=== PATIENT | female | born 1945 | race Caucasian/White ===

== ENCOUNTER 2016-12-24 04:07 | Inpatient (IN) ==
[2016-12-24] MEDS ORDERED: *HR* Morphine 2 MG/ML SYRINGE IVP ONE ×2 (04:15→06:13)
[2016-12-24] MEDS ORDERED: 0.9 % Sodium Chloride 1,000 ML IVC ONE ×3 (04:15→05:57)
[2016-12-24] MEDS ORDERED: Ondansetron 4 MG/2 ML VIAL IVP ONE ×2 (04:15→04:32)
[2016-12-24 04:29] LABS: Basophils # 0.1 K/mcL (0.0-0.2); Basophils % 0.6 %; Eosinophils # 0.1 K/mcL (0.0-0.6); Eosinophils % 0.8 %; Hematocrit 39.8 % (35.3-44.9); Hemoglobin 13.7 g/dL (11.5-15.4); Immature Granulocytes % 0.6 % (0-4); Lymphocytes % 14.2 %; Mean Corpuscular HGB Conc 34.4 g/dL (31.6-35.5); Mean Corpuscular Hemoglobin 32.8 pg (28.0-33.3); Mean Corpuscular Volume 95.2 fL (83.0-100.0); Monocytes # 0.7 K/mcL (0.0-1.3); Monocytes % 4.7 %; Neutrophils # 11.2 K/mcL (1.6-8.9); Platelet Count 363 K/mcL (140-400); Red Blood Count 4.18 M/mcL (3.82-4.97); Red Cell Distribution Width 13.4 % (11.5-14.5); Segmented Neutrophils % 79.1 %
--- NOTE | 2016-12-24 04:30 | Emergency Department Note ---
Disposition Clinical Impression: Hypokalemia, ST segment changes on electrocardiogram, Lactic acidosis Abdominal pain Qualifiers: Abdominal location: epigastric Qualified Code(s): R10.13 - Epigastric pain UTI (urinary tract infection) Qualifiers: Urinary tract infection type: acute cystitis Hematuria presence: without hematuria Qualified Code(s): N30.00 - Acute cystitis without hematuria Disposition: Still a Patient Condition: Fair Abdominal Pain HPI - General Chief Complaint: ED Abdominal Pain Stated Complaint: upper abdominal pain Time Seen by Provider: 12/24/16 04:09 Source: patient, EMS Mode of arrival: EMS Limitations: no limitations Nursing Notes Reviewed: Yes Vital Signs Reviewed: Yes - History of Present Illness Pt Subjective Complaint: abdominal pain Onset (ago): hour(s) ("Around 11pm") Consistency: constant Location: epigastric Pain Severity: moderate Quality: sharp Radiation: L flank Migration to: L flank Improves with: nothing Worsens with: nothing Associated symptoms: Reports: nausea, vomiting (once). Denies: diarrhea, fever , chills, constipation, dysuria, hematemesis, hematochezia, melena, hematuria, anorexia, syncope Treatments prior to arrival: none - Related Data Allergies Allergy/AdvReac Type Severity Reaction Status Date / Time No Known Allergies Allergy Verified 02/01/15 07:43 All systems ED: reviewed and negative except as stated. Review of Systems: As Per HPI Constitutional: Denies: fever, chills, weakness Eyes: Denies: vision change Cardiovascular: Denies: chest pain, palpitations, dyspnea on exertion, orthopnea , edema, syncope Respiratory: Denies: cough, dyspnea, wheezes Gastrointestinal: Reports: as per HPI, abdominal pain, nausea. 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 Absent: scleral icterus, conjunctival injection, periorbital swelling - ENT ENT exam: mucous membranes dry - Neck Neck exam: Present: normal inspection, full ROM, trachea midline. Absent: meningismus - Chest Chest inspection: Present: normal inspection - Respiratory Respiratory exam: Present: normal lung sounds bilaterally. Absent: respiratory distress - Cardiovascular Cardiovascular exam: Present: regular rate, normal rhythm, normal heart sounds - Abdominal Exam Abdominal exam: Present: soft, tenderness, guarding, normal bowel sounds. Absent: distention, rebound, rigidity, organomegaly, mass, pulsatile mass Abdominal tenderness: Present: epigastrium - Extremities Exam Extremities exam: Present: normal inspection, full ROM. Absent: pedal edema - Back Exam Back exam: Present: normal inspection - Neurological Exam Neurological exam: Present: alert, oriented X3, CN II-XII intact - Psychiatric Psychiatric exam: Present: normal affect, normal mood - Skin Skin exam: Present: warm, dry, intact, normal color Course Course Narrative: Patient presents by squad for evaluation of epigastric abdominal pain. The pain began around 11 PM while she was watching TV. Nothing makes it better or worse. The pain continued to increase in intensity so she called the squad for transport. She has had a few episodes of nausea and one episode of nonbloody, nonbilious emesis. She has had no diarrhea, constipation, melena or hematochezia. She has had no fever or chills and no recent illnesses. She denies shortness of breath, dyspnea, dyspnea on exertion, diaphoresis, dizziness , vertigo, syncope, headache, vision changes, leg pain or swelling. She appears uncomfortable but nontoxic. Vitals are normal. EKG, Labs, CXR, fluids and meds ordered. EKG shows ST depression in anterior and septal leads, flat and inverted T- waves. Changed compared with EKG from 2007. EKG reviewed by Dr. Tai. He has seen the patient and agrees with the assessment and plan. He recommends obtaining a repeat EKG in 10 min. Repeat EKG looks the same as the first. No ST elevation. - Reevaluation(s) Reevaluation #1: Patient is feeling better after pain and nausea meds. Time: 04:46 Reevaluation #2: Per lab the Lipase had to be diluted and should be resulted in about 5 more min Time: 05:10 - Consultations Consultation #1: The case was discussed with the hospitalist, Dr. Arreola. He requests that the patient receive IV fluids at 250 mL per hour, IV potassium, and a dose of Flagyl. Rocephin was also agreed-upon as treatment of the patient's UTI. Patient has been accepted. Time: 05:55 Abdominal Pain - Medical Records Medical records reviewed: Yes I reviewed the patient's medical records. - Lab Data Lab results reviewed: Yes I reviewed the patient's lab results. Lab results narrative: Laboratory Last Values WBC 14.1 K/mcL (4.3-11.1) H 12/24/16 04:22 RBC 4.18 M/mcL (3.82-4.97) 12/24/16 04:22 Hgb 13.7 g/dL (11.5-15.4) 12/24/16 04:22 Hct 39.8 % (35.3-44.9) 12/24/16 04:22 MCV 95.2 fL (83.0-100.0) 12/24/16 04:22 MCH 32.8 pg (28.0-33.3) 12/24/16 04:22 MCHC 34.4 g/dL (31.6-35.5) 12/24/16 04:22 RDW 13.4 % (11.5-14.5) 12/24/16 04:22 Plt Count 363 K/mcL (140-400) 12/24/16 04:22 MPV 9.0 fL (9.4-12.4) L 12/24/16 04:22 Immature Gran % 0.6 % (0-4) 12/24/16 04:22 Seg Neutrophils % 79.1 % 12/24/16 04:22 Lymphocytes % 14.2 % 12/24/16 04:22 Monocytes % 4.7 % 12/24/16 04:22 Eosinophils % 0.8 % 12/24/16 04:22 Basophils % 0.6 % 12/24/16 04:22 Neutrophils # 11.2 K/mcL (1.6-8.9) H 12/24/16 04:22 Lymphocytes # 2.0 K/mcL (0.6-4.6) 12/24/16 04:22 Monocytes # 0.7 K/mcL (0.0-1.3) 12/24/16 04:22 Eosinophils # 0.1 K/mcL (0.0-0.6) 12/24/16 04:22 Basophils # 0.1 K/mcL (0.0-0.2) 12/24/16 04:22 PT 9.8 Seconds (9.4-12.1) 12/24/16 04:22 INR 0.9 12/24/16 04:22 APTT 26.0 Seconds (26.0-36.0) 12/24/16 04:22 Sodium 137 mEq/L (136-145) 12/24/16 04:22 Potassium 3.4 mEq/L (3.5-4.5) L 12/24/16 04:22 Chloride 104 mEq/L (98-109) 12/24/16 04:22 Carbon Dioxide 20 mEq/L (19-29) 12/24/16 04:22 BUN 8 mg/dL (7-20) 12/24/16 04:22 Creatinine 0.75 mg/dL (0.57-1.11) 12/24/16 04:22 Est GFR ( Amer) > 60 (> 60) 12/24/16 04:22 Est GFR (Non-Af Amer) > 60 (> 60) 12/24/16 04:22 BUN/Creatinine Ratio 11 (6-26) 12/24/16 04:22 Glucose 151 mg/dL (70-99) H 12/24/16 04:22 Calculated Osmolality 285 (280-300) 12/24/16 04:22 Calcium 9.4 mg/dL (8.6-10.8) 12/24/16 04:22 Total Bilirubin 0.6 mg/dL (0.2-1.2) 12/24/16 04:22 AST 39 Units/L (5-34) H 12/24/16 04:22 ALT 26 Units/L (0-55) 12/24/16 04:22 Alkaline Phosphatase 87 Units/L (38-126) 12/24/16 04:22 Troponin I 0.01 ng/mL (0-0.03) 12/24/16 04:22 Serum Total Protein 7.2 g/dL (6.0-8.3) 12/24/16 04:22 Albumin 4.0 g/dL (3.5-5.0) 12/24/16 04:22 Globulin 3.2 g/dL (2.4-3.5) 12/24/16 04:22 Albumin/Globulin Ratio 1.3 (1.1-2.2) 12/24/16 04:22 Ethyl Alcohol 50 mg/dL (0-10) H 12/24/16 04:22 - Radiology Data Radiology results reviewed: Yes I reviewed the patient's radiology results. - EKG Data EKG attestation: Yes I reviewed and interpreted this EKG. EKG shows normal: sinus rhythm Rate: normal Rhythm: NSR When compared to previous EKG there are: changes noted Interpretation: nonspecific ST-T wave changes
[2016-12-24] MEDS ORDERED: Ondansetron 4 MG/2 ML VIAL ONE (04:33)
[2016-12-24 04:42] LABS: INR 0.9; Prothrombin Time 9.8 Seconds (9.4-12.1)
[2016-12-24 04:45] LABS: Alanine Aminotransferase 26 Units/L (0-55); Albumin/Globulin Ratio 1.3 (1.1-2.2); Alkaline Phosphatase 87 Units/L (38-126); Aspartate Amino Transferase 39 Units/L (5-34); BUN/Creatinine Ratio 11 (6-26); Bilirubin,Total 0.6 mg/dL (0.2-1.2); Blood Urea Nitrogen 8 mg/dL (7-20); Calcium 9.4 mg/dL (8.6-10.8); Carbon Dioxide 20 mEq/L (19-29); Chloride 104 mEq/L (98-109); Ethanol 50 mg/dL (0-10); Globulin 3.2 g/dL (2.4-3.5); Glucose 151 mg/dL (70-99); Osmolality,Calculated 285 (280-300); Potassium 3.4 mEq/L (3.5-4.5); Sodium 137 mEq/L (136-145); Total Protein 7.2 g/dL (6.0-8.3); eGFR For African Americans > 60 (> 60); eGFR For Non-African Americans > 60 (> 60)
[2016-12-24 05:32] LABS: Lipase 3539 Units/L (8-78)
[2016-12-24 05:34] LABS: Bilirubin,Urine Negative (Negative); Blood,Urine Negative (Negative); Clarity,Urine Cloudy (Clear); Color,Urine Yellow (Yellow); Glucose,Urine (UA) Normal (Normal); Ketones,Urine Negative (Negative); Leukocyte Esterase,Urine Small (Negative); Nitrite,Urine Positive (Negative); PH,Urine 6.5 pH Units (5.0-8.0); Protein,Urine Trace mg/dL (Neg-Trace); Specific Gravity,Urine > 1.030 (1.010-1.025); Urobilinogen,Urine Normal (Normal)
[2016-12-24 05:37] LABS: Bacteria,Urine Many per hpf (None-Few); Hyaline Casts,Urine None Seen per lpf (None-Few); RBC,Urine 0-3 per hpf (0-3); Squamous Epithelial Cell,Urine Moderate per lpf (None-Few); WBC,Urine 15-30 per hpf (0-3)
[2016-12-24] MEDS ORDERED: MetroNIDAZOLE 500 MG/100 ML 500 MG/100 ML BAG IVPB ONE (05:55)
[2016-12-24] MEDS ORDERED: Potassium Chloride 40 MEQ, Lidocaine 1% 2 ML in D5% in Water 500 ML IVPB ONE (05:55)
[2016-12-24] MEDS ORDERED: Ondansetron 4 MG/2 ML VIAL IVP STA (06:12)
--- NOTE | 2016-12-24 08:12 | Internal Med History&Physical ---
Date of Encounter: 12/24/16 Time of Encounter: 07:40 Assessment and Plan (1) Abdominal pain Current visit: Yes Status: Acute Most likely secondary to pancreatitis and acute gastritis, cannot rule out upper GI bleeding or severe gastritis with her history of alcohol use , She drinks 3 of whiskey daily in addition to drinking Pepsi and 3 cup of tea daily (2) Hypokalemia Current visit: Yes Status: Acute Replace per protocol (3) Lactic acidosis Current visit: Yes Status: Acute Secondary to volume depletion continue IV fluid (4) ST segment changes on electrocardiogram Current visit: Yes Status: Acute Patient had a stress test done on December 2015 which was negative. Patient currently denies any chest pain. We will trend troponin, nitroglycerin as needed (5) UTI (urinary tract infection) Current visit: Yes Status: Acute Add ciprofloxacin close monitoring of urine culture Internal Medicine - H&P: HPI Chief complaint: Abdominal pain. Admitted From: Home Plans for Post Hospital Care: Home History of present illness: Ms. Mckinney is a 71 year old female with past medical history of alcohol use. Patient came to the hospital today with complaint of severe epigastric pain sharp-like sensation 8 out of 10 in severity and worse with coughing or taking deep breaths or bending . Patient is complaining of gastric esophageal reflux disease-like symptoms. Patient is complaining of nausea, she had 1 episode of nonbilious nonbloody vomitus yesterday. Patient denies any chest pain or shortness of breath. Patient denies any fever or chills. She had loose bowel movement yesterday. Past Med Surg Social Fam HX - Past Medical History Medical history: osteoporosis, other Psychiatric history: no psych history - Past Surgical History Surgical History: appendectomy, other (Tubal ligation, surgery on her left kidney, colonoscopy) - Social History Smoking Status: Current every day smoker (Halfback daily for 30 years) Smokeless Tobacco Status: No Alcohol use: recent Drug use: none - Family History Mother Hx Family Cancer: Yes (breast) Father Hx Family Cardiac Disorders: Yes (CAD, Dyslipidemia) Internal Medicine - H&P: Meds Allopurinol [Zyloprim] 300 mg PO DAILY 12/24/16 [History] Gemfibrozil [Lopid] 600 mg PO DAILY 12/24/16 [History] Levothyroxine [Synthroid] 75 mcg PO DAILY 12/24/16 [History] Lisinopril [Zestril] 10 mg PO DAILY 12/24/16 [History] Pravastatin Sodium 10 mg PO DAILY 12/24/16 [History] 3 Allergy/AdvReac Type Severity Reaction Status Date / Time No Known Allergies Allergy Verified 02/01/15 07:43 All Systems PM: A 10-system review of systems was performed and is negative for pertinent findings except as documented above in the HPI. - Constitutional Vitals: Temp Pulse Resp BP Pulse Ox 97.3 F L 76 19 149/69 98 12/24/16 04:08 12/24/16 07:44 12/24/16 07:44 12/24/16 07:44 12/24/16 07:44 General appearance: Present: cooperative, A&O X 3, pleasant, severe distress - Head Head exam: Present: atraumatic, normocephalic - Neck Neck exam general surgery: Present: supple, trachea midline. Absent: lymphadenopathy - Respiratory Respiratory exam: Present: decreased breath sounds. Absent: accessory muscle use, rales, rhonchi, wheezes - Cardiovascular Cardiovascular exam: Present: RRR, +S1, +S2. Absent: diastolic murmur, gallop, rubs, systolic murmur - GI/Abdominal GI/Abdominal exam: Present: normal bowel sounds, soft, tenderness (Diffuse abdominal tenderness more in the epigastric area bilateral lower quadrant area and suprapubic area), no peritoneal signs - Extremities Exam Extremities exam: Present: warm, radial pulses palpable and symmetrical. Absent : calf tenderness, cyanotic, pedal edema - Neurological Exam Neurological exam: Present: CN II-XII intact, oriented X3, no focal deficits. Absent: pronater drift, facial droop, speech deficit - Skin Skin exam: Present: dry, intact Internal Med - H&P Results - Labs CBC & Chem 7: 12/24/16 04:22 12/24/16 04:22
[2016-12-24] MEDS ORDERED: Ondansetron ODT 4 MG TAB.RAPDIS SL PRN (08:38)
[2016-12-24] MEDS ORDERED: *HR* LORazepam 2 MG/ML VIAL IVP PRN (08:51)
[2016-12-24 09:25] LABS: Magnesium 1.8 mg/dL (1.6-2.6); Phosphorous 3.1 mg/dL (2.3-4.7)
[2016-12-24] MEDS: Lactobacillus 1 EACH CAP.SPRINK PO SCH (09:42)
[2016-12-24] MEDS: Folic Acid 1 MG TABLET PO SCH (09:42)
[2016-12-24] MEDS: *HR* Morphine 2 MG/ML SYRINGE IVP PRN ×4 (09:44→22:34)
[2016-12-24] MEDS: Thiamine (B-1) 100 MG TABLET PO SCH (09:44)
[2016-12-24] MEDS: Pantoprazole 40 MG VIAL IVP SCH ×2 (09:44→20:25)
[2016-12-24] MEDS: MetroNIDAZOLE 500 MG/100 ML 500 MG/100 ML BAG IVPB SCH ×2 (10:03→17:30)
[2016-12-24] MEDS: Sucralfate 1 GM TABLET PO SCH ×3 (11:07→23:15)
--- NOTE | 2016-12-24 17:18 | Electrocardiograph Report ---
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
--- NOTE | 2016-12-24 17:19 | Electrocardiograph Report ---
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
[2016-12-25] MEDS: MetroNIDAZOLE 500 MG/100 ML 500 MG/100 ML BAG IVPB SCH ×3 (01:51→21:21)
[2016-12-25] MEDS: *HR* Morphine 2 MG/ML SYRINGE IVP PRN ×5 (02:58→21:17)
[2016-12-25] MEDS ORDERED: *HR* LORazepam 2 MG/ML VIAL IVP PRN ×3 (04:03→04:05)
[2016-12-25 04:27] LABS: Basophils % 0.3 %; Eosinophils # 0.2 K/mcL (0.0-0.6); Eosinophils % 1.6 %; Hematocrit 33.3 % (35.3-44.9); Immature Granulocytes % 0.5 % (0-4); Lymphocytes # 1.4 K/mcL (0.6-4.6); Lymphocytes % 14.5 %; Mean Corpuscular HGB Conc 33.6 g/dL (31.6-35.5); Mean Corpuscular Hemoglobin 33.1 pg (28.0-33.3); Mean Corpuscular Volume 98.5 fL (83.0-100.0); Mean Platelet Volume 9.3 fL (9.4-12.4); Monocytes # 0.4 K/mcL (0.0-1.3); Monocytes % 3.8 %; Neutrophils # 7.6 K/mcL (1.6-8.9); Platelet Count 258 K/mcL (140-400); Red Blood Count 3.38 M/mcL (3.82-4.97); Red Cell Distribution Width 13.8 % (11.5-14.5); Segmented Neutrophils % 79.3 %
[2016-12-25 04:53] LABS: Hemoglobin 11.2 g/dL (11.5-15.4)
[2016-12-25] MEDS: Lactobacillus 1 EACH CAP.SPRINK PO SCH (09:12)
[2016-12-25] MEDS: Folic Acid 1 MG TABLET PO SCH (09:31)
[2016-12-25] MEDS: Thiamine (B-1) 100 MG TABLET PO SCH (09:31)
[2016-12-25] MEDS: Pantoprazole 40 MG VIAL IVP SCH ×2 (09:32→21:17)
[2016-12-25 10:36] LABS: Amylase 186 Units/L (25-125); BUN/Creatinine Ratio 9 (6-26); Blood Urea Nitrogen 6 mg/dL (7-20); Carbon Dioxide 20 mEq/L (19-29); Chloride 112 mEq/L (98-109); Glucose 86 mg/dL (70-99); Lipase 451 Units/L (8-78); Magnesium 1.4 mg/dL (1.6-2.6); Osmolality,Calculated 285 (280-300); Potassium 3.6 mEq/L (3.5-4.5); Sodium 139 mEq/L (136-145); eGFR For African Americans > 60 (> 60); eGFR For Non-African Americans > 60 (> 60)
[2016-12-25 10:37] LABS: Phosphorous 1.3 mg/dL (2.3-4.7)
[2016-12-25] MEDS ORDERED: Sodium Phosphate 30 MMOL in D5% in Water 100 ML IVPB ONE (10:48)
--- NOTE | 2016-12-25 11:39 | Internal Med Progress Note ---
Date of Encounter: 12/25/16 Time of Encounter: 10:50 - Assessment and plan (1) Abdominal pain Current Visit: Yes Status: Acute Assessment and plan: Continue IV fluid, pain medication as needed. Lipase is trending down and was started clear liquid diet Qualifiers: Abdominal location: epigastric Qualified Code(s): R10.13 - Epigastric pain (2) Hypokalemia Current Visit: Yes Status: Acute Assessment and plan: Replaced (3) Lactic acidosis Current Visit: Yes Status: Acute (4) ST segment changes on electrocardiogram Current Visit: Yes Status: Acute Assessment and plan: Recheck EKG consult cardiology (5) UTI (urinary tract infection) Current Visit: Yes Status: Acute Assessment and plan: Continue current antibiotic awaiting final culture (6) Hypophosphatemia Current Visit: Yes Status: Acute Assessment and plan: Replace and check phosphorus next morning - Time Spent With Patient 25 - 35 minutes - Subjective Interval history: Patient continue to have mild diffuse abdominal pain better than yesterday. Patient denies any nausea or vomiting. Patient denies any fever or chills. Patient is complaining of bilateral flank pain. Patient stated IV pain medication morphine last only for 3 hour - Constitutional Vitals: Temp Pulse Resp BP Pulse Ox 98.5 F 93 13 137/72 98 12/25/16 06:48 12/25/16 06:48 12/25/16 06:48 12/25/16 06:48 12/25/16 06:48 General appearance: Present: cooperative, A&O X 3, pleasant, severe distress - Head Head exam: Present: atraumatic, normocephalic - Neck Neck exam general surgery: Present: supple, trachea midline. Absent: lymphadenopathy - Respiratory Respiratory exam: Present: CTAB. Absent: accessory muscle use, rales, rhonchi, wheezes - Cardiovascular Cardiovascular exam: Present: RRR, +S1, +S2. Absent: diastolic murmur, gallop, rubs, systolic murmur - GI/Abdominal GI/Abdominal exam: Present: normal bowel sounds, tenderness (Mild diffuse abdominal tenderness more in bilateral upper quadrant). Absent: splenomegaly - Extremities Exam Extremities exam: Present: warm, radial pulses palpable and symmetrical. Absent : calf tenderness, cyanotic, pedal edema - Neurological Exam Neurological exam: Present: CN II-XII intact, oriented X3, no focal deficits. Absent: pronater drift, facial droop, speech deficit - Skin Skin exam: Present: dry, intact Internal Medicine: Result - Labs CBC & Chem 7: 12/25/16 03:37 12/25/16 10:10 Labs: Short CBC 12/25/16 Range/Units 03:37 WBC 9.6 (4.3-11.1) K/mcL Hgb 11.2 L D (11.5-15.4) g/dL Hct 33.3 L (35.3-44.9) % Plt Count 258 (140-400) K/mcL Neutrophils # 7.6 (1.6-8.9) K/mcL BMP 12/25/16 10:10 Sodium 139 Potassium 3.6 Chloride 112 H Carbon Dioxide 20 BUN 6 L Creatinine 0.68 Glucose 86 Calcium 8.0 L Cardiac Enzymes 12/24/16 Range/Units 14:50 Troponin I 0.00 (0-0.03) ng/mL - ABG Interpretation ABG results: PT/INR, D-dimer PT 9.8 Seconds (9.4-12.1) 12/24/16 04:22 - VTE Documentation of Mechanical Device: Graduated compression elastic hosiery Consult Discharge Plan - Plan Referrals: Cristiana Burr, [facility] [Primary Care Provider] -
--- NOTE | 2016-12-25 13:19 | Cardiology Consult Note ---
Date of Encounter: 12/25/16 Time of Encounter: 12:45 Assessment and Plan (1) Abdominal pain Current Visit: Yes Status: Acute Per cardiology: -ADmitted with abdominal pain, diagnosed with pancreatitis. -Elevated amylase and lipase noted. -Management per primary service. Qualifiers: Abdominal location: epigastric Qualified Code(s): R10.13 - Epigastric pain (2) Electrolyte imbalance Current Visit: Yes Status: Acute Per cardiology: -Mag 1.4, replaced per primary service. -Phosphorous 1.3, replaced per primary service. -Management per primary service. (3) ST segment changes on electrocardiogram Current Visit: Yes Status: Acute Per cardiology: -ST depression noted in leads V4, V5, and V6. T wave inversions noted in leads I , V3, V4, V5. -Electrolyte imbalances noted. -Troponins negative x3. -Denies chest pain, shortness of breath, or increased fatigue. -Denies exertional symptoms. -Stress 12/2015 with perfusion imaging negative for ischemia or infarct. -Will check echocardiogram. -Will repeat ECG in am after electrolytes have been repleted. (4) Tobacco abuse Current Visit: Yes Status: Chronic Per cardiology: -Reports smoking 0.5ppd for greater than 40 years. -Smoking cessation education provided to patient. Discussion w patient/family: The assessment and plan as outlined above was discussed with the patient who expressed understanding and agreement. All questions were answered. Thank you for involving us in the care of your patient. Please call with any questions. Discussed and reviewed with . History of Present Illness Consult date: 12/25/16 Requesting physician: Juve Fonseca Consult reason: abnormal ECG Chief complaint: abdominal pain History of present illness: Ms. Mckinney is a 71 year old female with a relevant past medical history of hyperlipidemia, tobacco abuse, and ETOH abuse. Patient reports family history of CAD with father at age 60 requiring CABG. Patient presented to [facility] with complaints of abdominal pain. Cardiology has been asked to see and evaluate patient for abnormal ECG. Patient denies chest pain, shortness of breath, or increased fatigue. Patient denies exertional symptoms. Patient reports she is able to climb two flights of stairs carrying laundry without symptoms. Past Med Surg Social Fam HX - Past Medical History Attestation: Yes The following information was validated with the patient. Source: patient, old records reviewed Medical history: osteoporosis, other Psychiatric history: no psych history - Past Surgical History Surgical History: appendectomy, other - Social History Smoking Status: Current every day smoker Smokeless Tobacco Status: No Alcohol use: recent Drug use: none - Family History Mother Hx Family Cancer: Yes (breast) Father Hx Family Cardiac Disorders: Yes (CAD, Dyslipidemia) Medications and Allergies Allopurinol [Zyloprim] 300 mg PO DAILY 12/24/16 [History] Gemfibrozil [Lopid] 600 mg PO DAILY 12/24/16 [History] Levothyroxine [Synthroid] 75 mcg PO DAILY 12/24/16 [History] Lisinopril [Zestril] 10 mg PO DAILY 12/24/16 [History] Pravastatin Sodium 10 mg PO DAILY 12/24/16 [History] 3 Allergy/AdvReac Type Severity Reaction Status Date / Time No Known Allergies Allergy Verified 02/01/15 07:43 All Systems Review: A 10-system review of systems was performed and is negative for pertinent findings except as documented above in the HPI. - Cardiovascular Cardiovascular: as per HPI - Gastrointestinal Gastrointestinal: abdominal pain Physical Examination Vital Signs, Last 4 Hours Temp Pulse Resp BP Pulse Ox 12/25/16 11:46 98.3 F 86 16 153/74 96 General: Conversant, No Apparent Distress HEENT: Atraumatic, Normocephaly, Mucus Membranes Moist Neck: No JVD, Normal carotid pulses Cardiac: Reg Rate and Rhythm, Normal S1 and S2, No Murmur Lungs: Normal Breath Sounds, No Wheeze, Rales, Rhonchi Neuro: Alert and responsive, No focal deficits noted Abdomen: Soft, Other (Abdomen tender to palpation. ) Skin: No rashes noted on visualized skin Musculoskeletal: No Chest Wall Tenderness Extremities: No Clubbing, No Cyanosis, No Edema, Normal Pulses Results 12/25/16 03:37 12/25/16 10:10 Lab Results Active Medications Folic Acid (Folic Acid) 1 mg PO DAILY [facility] Stop: 06/25/17 09:01 Last Admin: 12/25/16 09:31 Dose: 1 mg Ciprofloxacin Lactate (Cipro Premix 400 Mg/200 Ml) 400 mg in 200 mls @ 200 mls/ hr IVPB Q12H [facility] Stop: 06/25/17 10:01 Last Admin: 12/25/16 09:19 Dose: 200 mls/hr Metronidazole (Flagyl Premix 500 Mg/100 Ml) 500 mg in 100 mls @ 100 mls/hr IVPB Q8H [facility] Stop: 06/25/17 10:01 Last Admin: 12/25/16 09:21 Dose: 100 mls/hr Potassium Chloride 10 meq/ (Sodium Chloride) 1,005 mls @ 200 mls/hr IVC .Q5H2M [facility] Stop: 06/25/17 20:01 Last Admin: 12/25/16 11:33 Dose: 200 mls/hr Sodium Phosphate 30 mmol/ (Dextrose) 110 mls @ 16 mls/hr IVPB ONCE ONE Stop: 12/25/16 17:40 Lactobacillus Acidophilus/Rhamnosus (Culturelle) 2 each PO DAILY [facility] Stop: 06/25/17 09:01 Last Admin: 12/25/16 09:12 Dose: Not Given Lorazepam (Ativan) 2 mg IVP Q2H PRN PRN Reason: CIWA more than 10 Stop: 06/26/17 04:04 Lorazepam (Ativan) 4 mg IVP Q2H PRN PRN Reason: CIWA more than 20 Stop: 06/26/17 04:04 Lorazepam (Ativan) 1 mg IVP Q6HR PRN PRN Reason: Anxiety Stop: 06/25/17 08:52 Morphine Sulfate (Morphine Sulfate) 2 mg IVP Q4HR PRN PRN Reason: Moderate Pain Stop: 06/25/17 08:39 Last Admin: 12/25/16 12:17 Dose: 2 mg Ondansetron HCl (Zofran Odt) 4 mg SL Q8HR PRN PRN Reason: Nausea And Vomiting Stop: 06/25/17 08:39 Pantoprazole Sodium (Protonix) 40 mg IVP BID [facility] Stop: 06/25/17 09:01 Last Admin: 12/25/16 09:32 Dose: 40 mg Sucralfate (Carafate) 1 gm PO QIDAC [facility] Stop: 06/26/17 08:31 Last Admin: 12/25/16 09:32 Dose: 1 gm Thiamine HCl (Vitamin B-1) 100 mg PO DAILY [facility] Stop: 06/25/17 09:01 Last Admin: 12/25/16 09:31 Dose: 100 mg Laboratory Tests 12/24/16 12/24/1612/24/17 04:22 04:22 08:58 WBC 14.1 H Hgb Potassium Creatinine Phosphorus Magnesium Troponin I 0.01 0.00 12/24/16 12/25/16 12/25/16 14:50 03:37 10:10 WBC 9.6 Hgb 11.2 L D Potassium 3.6 Creatinine 0.68 Phosphorus 1.3 L D Magnesium 1.4 L Troponin I 0.00 - Imaging and Cardiology Chest Xray: report reviewed Stress Test: report reviewed Echo: pending - EKG Interpretation EKG results cardiology: personally reviewed (ECG with SR, HR 80. ST depression noted in leads V4, V5, and V6. T wave inversions noted in leads I, V3, V4, V5.) , other (Telemetry reviewed with average HR previous 12 hours noted to be 89, sinus rhythm. PACs noted. One run of atrial tachycardia noted.) Consult Discharge Plan - Plan Referrals: Cristiana Burr, [employer] [Primary Care Provider] -
[2016-12-25] MEDS: Sucralfate 1 GM TABLET PO SCH (17:57)
[2016-12-26] MEDS: *HR* Morphine 2 MG/ML SYRINGE IVP PRN ×3 (01:48→12:45)
[2016-12-26] MEDS: MetroNIDAZOLE 500 MG/100 ML 500 MG/100 ML BAG IVPB SCH ×3 (01:49→17:52)
[2016-12-26 04:51] LABS: INR 1.1; Prothrombin Time 12.2 Seconds (9.4-12.1)
[2016-12-26 04:56] LABS: Basophils % 0.4 %; Eosinophils # 0.2 K/mcL (0.0-0.6); Eosinophils % 1.5 %; Hematocrit 29.5 % (35.3-44.9); Hemoglobin 10.1 g/dL (11.5-15.4); Immature Granulocytes % 0.6 % (0-4); Lymphocytes # 1.5 K/mcL (0.6-4.6); Lymphocytes % 14.5 %; Mean Corpuscular HGB Conc 34.2 g/dL (31.6-35.5); Mean Corpuscular Hemoglobin 32.9 pg (28.0-33.3); Mean Corpuscular Volume 96.1 fL (83.0-100.0); Mean Platelet Volume 9.6 fL (9.4-12.4); Monocytes # 0.5 K/mcL (0.0-1.3); Neutrophils # 7.9 K/mcL (1.6-8.9); Platelet Count 216 K/mcL (140-400); Red Blood Count 3.07 M/mcL (3.82-4.97); Red Cell Distribution Width 13.8 % (11.5-14.5)
[2016-12-26 05:24] LABS: BUN/Creatinine Ratio 6 (6-26); Calcium 7.7 mg/dL (8.6-10.8); Carbon Dioxide 18 mEq/L (19-29); Chloride 112 mEq/L (98-109); Glucose 104 mg/dL (70-99); Magnesium 1.6 mg/dL (1.6-2.6); Osmolality,Calculated 283 (280-300); Phosphorous 1.7 mg/dL (2.3-4.7); Potassium 3.4 mEq/L (3.5-4.5); Sodium 138 mEq/L (136-145); eGFR For African Americans > 60 (> 60); eGFR For Non-African Americans > 60 (> 60)
[2016-12-26 05:28] LABS: Blood Urea Nitrogen 4 mg/dL (7-20)
[2016-12-26] MEDS: Lactobacillus 1 EACH CAP.SPRINK PO SCH ×2 (07:41→07:46)
[2016-12-26] MEDS: Thiamine (B-1) 100 MG TABLET PO SCH (07:41)
[2016-12-26] MEDS: Pantoprazole 40 MG VIAL IVP SCH ×2 (07:41→21:26)
[2016-12-26] MEDS: Folic Acid 1 MG TABLET PO SCH (07:41)
[2016-12-26 09:10] LABS: Chol/HDL Ratio 3.2 (0-4.9)
--- NOTE | 2016-12-26 09:56 | Electrocardiograph Report ---
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
[2016-12-26] MEDS ORDERED: Potassium Phosphate 44 MEQ in 0.9 % Sodium Chloride 250 ML IVPB ONE (12:59)
[2016-12-26] MEDS ORDERED: Magnesium Sulfate 1 GM in D5% in Water 100 ML IVPB ONE (13:00)
--- NOTE | 2016-12-26 13:12 | Cardiology Progress Note ---
Date of Encounter: 12/26/16 Time of Encounter: 11:30 Assessment and Plan (1) Abdominal pain Current Visit: Yes Status: Acute Per cardiology: -ADmitted with abdominal pain, diagnosed with pancreatitis. -Elevated amylase and lipase noted. -Management per primary service. Qualifiers: Abdominal location: epigastric Qualified Code(s): R10.13 - Epigastric pain (2) Electrolyte imbalance Current Visit: Yes Status: Acute Per cardiology: -Mag 1.6, replaced per primary service. -Phosphorous 1.7, replaced per primary service. -Management per primary service. (3) ST segment changes on electrocardiogram Current Visit: Yes Status: Acute Per cardiology: -Had ECG changes on admission. -Electrolyte imbalances noted. -Troponins negative x3. -Denies chest pain, shortness of breath, or increased fatigue. -Denies exertional symptoms. -Stress 12/2015 with perfusion imaging negative for ischemia or infarct. -TTE with LVEF 65%, mild diastolic dysfunction, no significant valvular dysfunction, trivial pericardial effusion without evidence of tamponade, all wall segments with normal motion. -No significant findings on echocardiogram. Denies symptoms. -Cardiology will sign off and will follow in outpatient setting. Follow up set. (4) Tobacco abuse Current Visit: Yes Status: Chronic Per cardiology: -Reports smoking 0.5ppd for greater than 40 years. -Smoking cessation education provided to patient. Discussion w patient/family: The assessment and plan as outlined above was discussed with the patient who expressed understanding and agreement. All questions were answered. Thank you for involving us in the care of your patient. Please call with any questions. Discussed and reviewed with . Subjective Principal diagnosis: ECG changes Interval history: Patient states she feels better this morning. Denies shortness of breath or chest pain. Objective Vital Signs, Last 4 Hours Temp Pulse Resp BP Pulse Ox 12/26/16 12:58 98.4 F 71 18 139/77 94 General: Conversant, No Apparent Distress HEENT: Atraumatic, Normocephaly, Mucus Membranes Moist Neck: No JVD, Normal carotid pulses Cardiac: Reg Rate and Rhythm, Normal S1 and S2, No Murmur Lungs: Normal Breath Sounds, No Wheeze, Rales, Rhonchi Neuro: Alert and responsive, No focal deficits noted Abdomen: Soft, Other (abdomen tender to palpation. ) Skin: No rashes noted on visualized skin Musculoskeletal: No Chest Wall Tenderness Extremities: No Clubbing, No Cyanosis, No Edema, Normal Pulses Results 12/26/16 04:05 12/26/16 04:05 Lab Results Impressions Echocardiogram 12/25/16 13:03 Impressions: LVEF 65%. Mild left ventricular diastolic dysfunction. Normal right ventricular structure and function. No significant valvular dysfunction. No pulmonary hypertension. There is a trivial pericardial effusion present without tamponade. Left Ventricular Wall Motion: Rest Echo Findings All wall segments showed normal motion. Findings: Study Quality * Technically adequate exam. ECG Findings * Normal sinus rhythm. Left Ventricle * Normal LV chamber size, wall thickness and function. * LVEF 65%. * Mild left ventricular diastolic dysfunction. Right Ventricle * Normal right ventricular structure and function. Left Atrium * Normal left atrial size. Right Atrium * Normal right atrial size. Aortic Valve * No aortic regurgitation. * Aortic valve not well visualized. * No aortic stenosis. Mitral Valve * Normal mitral valve structure. * No mitral regurgitation. * No mitral stenosis. Tricuspid Valve * Tricuspid valve not well visualized. * No tricuspid regurgitation. * Estimated RA pressure is 3 mmHg. * Estimated RVSP is 8 mmHg. Pulmonic Valve * Pulmonic valve is not well visualized. * No pulmonic stenosis. * No pulmonic regurgitation. Pulmonary Artery * Pulmonary artery not well visualized. Aorta * Normally sized aortic root. Pericardium * There is a trivial pericardial effusion present. * There is no echocardiographic evidence of tamponade. Interatrial Septum * No evidence of PFO by color Doppler. IVC * Normal IVC dimensions and inspiratory collapse. Active Medications Folic Acid (Folic Acid) 1 mg PO DAILY BENNIE Stop: 06/25/17 09:01 Last Admin: 12/26/16 07:41 Dose: 1 mg Ciprofloxacin Lactate (Cipro Premix 400 Mg/200 Ml) 400 mg in 200 mls @ 200 mls/ hr IVPB Q12H BENNIE Stop: 06/25/17 10:01 Last Admin: 12/26/16 11:16 Dose: 200 mls/hr Metronidazole (Flagyl Premix 500 Mg/100 Ml) 500 mg in 100 mls @ 100 mls/hr IVPB Q8H BENNIE Stop: 06/25/17 10:01 Last Infusion: 12/26/16 11:23 Dose: Infused Potassium Chloride 10 meq/ (Sodium Chloride) 1,005 mls @ 200 mls/hr IVC .Q5H2M [facility] Stop: 06/25/17 20:01 Last Admin: 12/26/16 05:56 Dose: 200 mls/hr Magnesium Sulfate 1 gm/ (Dextrose) 102 mls @ 100 mls/hr IVPB ONCE ONE Stop: 12/26/16 14:01 Potassium Phosphate 44 meq/ (Sodium Chloride) 260 mls @ 40 mls/hr IVPB ONCE ONE Stop: 12/26/16 19:28 Lactobacillus Acidophilus/Rhamnosus (Culturelle) 2 each PO DAILY [facility] Stop: 06/25/17 09:01 Last Admin: 12/26/16 07:46 Dose: Not Given Lorazepam (Ativan) 2 mg IVP Q2H PRN PRN Reason: CIWA more than 10 Stop: 06/26/17 04:04 Lorazepam (Ativan) 4 mg IVP Q2H PRN PRN Reason: CIWA more than 20 Stop: 06/26/17 04:04 Lorazepam (Ativan) 1 mg IVP Q6HR PRN PRN Reason: Anxiety Stop: 06/25/17 08:52 Morphine Sulfate (Morphine Sulfate) 2 mg IVP Q4HR PRN PRN Reason: Moderate Pain Stop: 06/25/17 08:39 Last Admin: 12/26/16 12:45 Dose: 2 mg Ondansetron HCl (Zofran Odt) 4 mg SL Q8HR PRN PRN Reason: Nausea And Vomiting Stop: 06/25/17 08:39 Pantoprazole Sodium (Protonix) 40 mg IVP BID [facility] Stop: 06/25/17 09:01 Last Admin: 12/26/16 07:41 Dose: 40 mg Sucralfate (Carafate) 1 gm PO QIDAC [facility] Stop: 06/26/17 08:31 Last Admin: 12/26/16 12:45 Dose: 1 gm Thiamine HCl (Vitamin B-1) 100 mg PO DAILY [facility] Stop: 06/25/17 09:01 Last Admin: 12/26/16 07:41 Dose: 100 mg Laboratory Tests 12/26/16 12/26/16 04:05 04:05 Hgb 10.1 L Potassium 3.4 L Creatinine 0.65 Phosphorus 1.7 L - Imaging and Cardiology Chest Xray: report reviewed Echo: report reviewed - EKG Interpretation EKG results cardiology: personally reviewed (ECG with SR, HR 84. T wave inversions noted in V1, V2, V3, V4, V5.), other (Telemetry reviewed with average HR previous 12 hours noted to be 88, sinus rhythm.) - VTE Documentation of Mechanical Device: Graduated compression elastic hosiery Consult Discharge Plan - Plan Referrals: Cristiana Burr, [employer] [Primary Care Provider] -
[2016-12-26] MEDS ORDERED: Acetaminophen 325 MG TABLET PO PRN (16:46)
[2016-12-26] MEDS ORDERED: Potassium Chloride Elixir 20 MEQ/15 ML UDC PO ONE (16:48)
--- NOTE | 2016-12-26 16:51 | Internal Med Progress Note ---
Date of Encounter: 12/26/16 Time of Encounter: 14:00 - Assessment and plan (1) Abdominal pain Current Visit: Yes Status: Acute Assessment and plan: Titrated down pain medication, change it to oral Qualifiers: Abdominal location: epigastric Qualified Code(s): R10.13 - Epigastric pain (2) Hypokalemia Current Visit: Yes Status: Acute Assessment and plan: Add potassium chloride liquid (3) Lactic acidosis Current Visit: Yes Status: Acute (4) ST segment changes on electrocardiogram Current Visit: Yes Status: Acute Assessment and plan: Last stress test is negative cardiac echo normal. Per Cardiology no invasive workup needed (5) UTI (urinary tract infection) Current Visit: Yes Status: Acute Assessment and plan: Escherichia coli sensitive to Levaquin, check bladder scan Qualifiers: Urinary tract infection type: acute cystitis Hematuria presence: without hematuria Qualified Code(s): N30.00 - Acute cystitis without hematuria (6) Hypophosphatemia Current Visit: Yes Status: Acute Assessment and plan: Replace and check tomorrow morning - Time Spent With Patient 25 - 35 minutes - Subjective Interval history: Patient continued to have diffuse abdominal pain better than yesterday 5 out of 10 in severity. Patient denies any nausea or vomiting, she had low-grade fever , potassium and phosphorus is down, she is complaining of constipation - Constitutional Vitals: Temp Pulse Resp BP Pulse Ox 100.4 F H 90 19 157/79 94 12/26/16 15:22 12/26/16 15:22 12/26/16 15:22 12/26/16 15:22 12/26/16 15:22 General appearance: Present: cooperative, A&O X 3, pleasant - Head Head exam: Present: atraumatic, normocephalic - Neck Neck exam general surgery: Present: supple, trachea midline. Absent: lymphadenopathy - Respiratory Respiratory exam: Present: CTAB. Absent: accessory muscle use, rales, rhonchi, wheezes - Cardiovascular Cardiovascular exam: Present: RRR, +S1, +S2. Absent: diastolic murmur, gallop, rubs, systolic murmur - GI/Abdominal GI/Abdominal exam: Present: normal bowel sounds, soft, tenderness (Mild diffuse abdominal tenderness ), no peritoneal signs. Absent: distended - Extremities Exam Extremities exam: Present: warm, radial pulses palpable and symmetrical. Absent : calf tenderness, cyanotic, pedal edema - Neurological Exam Neurological exam: Present: CN II-XII intact, oriented X3, no focal deficits. Absent: pronater drift, facial droop, speech deficit Internal Medicine: Result - Labs CBC & Chem 7: 12/26/16 04:05 12/26/16 04:05 Labs: Short CBC 12/26/16 Range/Units 04:05 WBC 10.1 (4.3-11.1) K/mcL Hgb 10.1 L (11.5-15.4) g/dL Hct 29.5 L (35.3-44.9) % Plt Count 216 (140-400) K/mcL Neutrophils # 7.9 (1.6-8.9) K/mcL BMP 12/26/16 04:05 Sodium 138 Potassium 3.4 L Chloride 112 H Carbon Dioxide 18 L BUN 4 L Creatinine 0.65 Glucose 104 H Calcium 7.7 L - ABG Interpretation ABG results: PT/INR, D-dimer PT 12.2 Seconds (9.4-12.1) H 12/26/16 04:05 - Impressions Impressions Echocardiogram 12/25/16 13:03 Impressions: LVEF 65%. Mild left ventricular diastolic dysfunction. Normal right ventricular structure and function. No significant valvular dysfunction. No pulmonary hypertension. There is a trivial pericardial effusion present without tamponade. Left Ventricular Wall Motion: Rest Echo Findings All wall segments showed normal motion. Findings: Study Quality * Technically adequate exam. ECG Findings * Normal sinus rhythm. Left Ventricle * Normal LV chamber size, wall thickness and function. * LVEF 65%. * Mild left ventricular diastolic dysfunction. Right Ventricle * Normal right ventricular structure and function. Left Atrium * Normal left atrial size. Right Atrium * Normal right atrial size. Aortic Valve * No aortic regurgitation. * Aortic valve not well visualized. * No aortic stenosis. Mitral Valve * Normal mitral valve structure. * No mitral regurgitation. * No mitral stenosis. Tricuspid Valve * Tricuspid valve not well visualized. * No tricuspid regurgitation. * Estimated RA pressure is 3 mmHg. * Estimated RVSP is 8 mmHg. Pulmonic Valve * Pulmonic valve is not well visualized. * No pulmonic stenosis. * No pulmonic regurgitation. Pulmonary Artery * Pulmonary artery not well visualized. Aorta * Normally sized aortic root. Pericardium * There is a trivial pericardial effusion present. * There is no echocardiographic evidence of tamponade. Interatrial Septum * No evidence of PFO by color Doppler. IVC * Normal IVC dimensions and inspiratory collapse. - VTE Documentation of Mechanical Device: Graduated compression elastic hosiery Consult Discharge Plan - Plan Referrals: Cristiana Burr, [employer] [Primary Care Provider] -
[2016-12-26] MEDS ORDERED: *HR* Morphine 2 MG/ML SYRINGE IVP PRN (16:59)
[2016-12-26] MEDS: *HR* HYDROcodone/Acet 5/325 mg TABLET PO PRN (23:07)
[2016-12-27] MEDS: MetroNIDAZOLE 500 MG/100 ML 500 MG/100 ML BAG IVPB SCH ×2 (01:53→10:01)
[2016-12-27] MEDS: *HR* HYDROcodone/Acet 5/325 mg TABLET PO PRN (03:09)
[2016-12-27] MEDS: Lactobacillus 1 EACH CAP.SPRINK PO SCH (08:05)
[2016-12-27] MEDS: Folic Acid 1 MG TABLET PO SCH (08:06)
[2016-12-27] MEDS: Pantoprazole 40 MG VIAL IVP SCH (08:07)
[2016-12-27] MEDS: Thiamine (B-1) 100 MG TABLET PO SCH (08:07)
[2016-12-27 10:09] LABS: Basophils % 0.2 %; Eosinophils # 0.2 K/mcL (0.0-0.6); Eosinophils % 1.8 %; Hematocrit 32.8 % (35.3-44.9); Hemoglobin 10.7 g/dL (11.5-15.4); Immature Granulocytes % 0.7 % (0-4); Lymphocytes # 1.1 K/mcL (0.6-4.6); Lymphocytes % 9.9 %; Mean Corpuscular HGB Conc 32.6 g/dL (31.6-35.5); Mean Corpuscular Hemoglobin 32.3 pg (28.0-33.3); Mean Corpuscular Volume 99.1 fL (83.0-100.0); Mean Platelet Volume 9.5 fL (9.4-12.4); Monocytes # 0.7 K/mcL (0.0-1.3); Monocytes % 6.5 %; Neutrophils # 8.5 K/mcL (1.6-8.9); Platelet Count 242 K/mcL (140-400); Red Blood Count 3.31 M/mcL (3.82-4.97); Red Cell Distribution Width 13.4 % (11.5-14.5); Segmented Neutrophils % 80.9 %
[2016-12-27 10:18] LABS: BUN/Creatinine Ratio 6 (6-26); Blood Urea Nitrogen 4 mg/dL (7-20); Calcium 8.5 mg/dL (8.6-10.8); Carbon Dioxide 21 mEq/L (19-29); Chloride 107 mEq/L (98-109); Glucose 129 mg/dL (70-99); Magnesium 1.7 mg/dL (1.6-2.6); Osmolality,Calculated 281 (280-300); Phosphorous 1.5 mg/dL (2.3-4.7); Potassium 3.4 mEq/L (3.5-4.5); Sodium 136 mEq/L (136-145); eGFR For African Americans > 60 (> 60); eGFR For Non-African Americans > 60 (> 60)
[2016-12-27 10:19] LABS: Amylase 37 Units/L (25-125); Lipase 50 Units/L (8-78)
[2016-12-27 11:20] VITALS: BP 136/68
--- NOTE | 2016-12-27 14:52 | Discharge Summary ---
Date of Encounter: 12/28/16 Time of Encounter: 14:00 - Discharge Diagnosis (1) Abdominal pain Priority: Primary Status: Acute (2) Hypokalemia Priority: Secondary Status: Acute (3) Lactic acidosis Priority: Secondary Status: Acute (4) ST segment changes on electrocardiogram Priority: Secondary Status: Acute (5) UTI (urinary tract infection) Priority: Primary Status: Acute (6) Hypophosphatemia Priority: Secondary Status: Acute (7) Pancreatitis, acute Priority: Primary Status: Acute Qualifiers: Pancreatitis type: alcohol induced Acute pancreatitis complication: unspecified Qualified Code(s): K85.20 - Alcohol induced acute pancreatitis without necrosis or infection - Discharge Medications Prescriptions: HYDROcodone/Acet 5/325 mg [Deforest 5-325 mg] 1 tab PO Q4HR PRN #25 tablet PRN Reason: MODERATE PAIN Ciprofloxacin [Cipro] 500 mg PO BID #14 tablet Folic Acid 1 mg PO DAILY #90 tablet Magnesium Oxide [Mag-Ox] 400 mg PO DAILY #60 tablet metroNIDAZOLE [Flagyl] 500 mg PO TID #24 tablet Phos-NaK [Neutra-Phos] 1 pack PO TID #30 powd.pack Thiamine (B-1) [Vitamin B-1] 100 mg PO DAILY #90 tablet Home Medications: Allopurinol [Zyloprim] 300 mg PO DAILY 12/24/16 [History] Gemfibrozil [Lopid] 600 mg PO DAILY 12/24/16 [History] Levothyroxine [Synthroid] 75 mcg PO DAILY 12/24/16 [History] Lisinopril [Zestril] 10 mg PO DAILY 12/24/16 [History] Pravastatin Sodium 10 mg PO DAILY 12/24/16 [History] Acetaminophen [Tylenol] 650 mg PO Q6HR PRN tablet 12/27/16 [Rx] Ciprofloxacin [Cipro] 500 mg PO BID #14 tablet 12/27/16 [Rx] Folic Acid 1 mg PO DAILY #90 tablet 12/27/16 [Rx] HYDROcodone/Acet 5/325 mg [Deforest 5-325 mg] 1 tab PO Q4HR PRN #25 tablet [Rx] Lactobacillus [Culturelle] 2 each PO DAILY cap.sprink 12/27/16 [Rx] Magnesium Oxide [Mag-Ox] 400 mg PO DAILY #60 tablet 12/27/16 [Rx] Phos-NaK [Neutra-Phos] 1 pack PO TID #30 powd.pack 12/27/16 [Rx] Polyethylene Glycol 3350 [MiraLAX] 17 gm PO BID powd.pack 12/27/16 [Rx] Thiamine (B-1) [Vitamin B-1] 100 mg PO DAILY #90 tablet 12/27/16 [Rx] metroNIDAZOLE [Flagyl] 500 mg PO TID #24 tablet 12/27/16 [Rx] Allergies/Adverse Reactions: 3 Allergy/AdvReac Type Severity Reaction Status Date / Time No Known Allergies Allergy Verified 02/01/15 07:43 Procedures/tests Complete & Pending: Procedures Performed prior 72 hours Category Date Time Status ECG 12 lead ECG [ECG] AM 0600 Y 12/26/16 06:00 Completed EKG [ECG 12 lead ECG] [ECG] Routine Y 12/25/16 11:51 Completed EV echocardiogram Routine Y 12/25/16 13:03 Completed Date of admission: 12/24/16 08:38 Primary care physician: Cristiana Burr CNP Consults: 12/25/16 11:50 Consult to Cardiology [CONS] Routine Comment: Consulting Provider: Cardiology Magdalene Reason for Consult: abnormal EKG Call Completed: Yes Discharging clinician: Juve Fonseca Anticipated date of discharge: 12/27/16 - Patient Status Disposition: Home, Self-Care Condition: Fair Functional capacity at discharge: independent ambulation Overall status at discharge: patient is progressing back to baseline - Discharge Instructions Instructions: Pancreatitis (DC), Urinary Tract Infection in Women (DC) Follow Up With: Cristiana Burr CNP [Primary Care Provider] - 01/06/17 1:00 pm (Follow up with government employee in 1 week) - Diet and Activity Activity: resume usual activities as tolerated Diet: low fat, low cholesterol Interval History: 71-year-old female with past medical history of alcohol use patient came to the hospital with complaining of severe epigastric and left upper quadrant abdominal pain. The pain began around 11 PM one day prior to admission while she was watching TV. Nothing makes it better or worse. The pain continued to increase in intensity so she called the squad for transport. She has had a few episodes of nausea and one episode of nonbloody, nonbilious emesis. She has had no diarrhea, constipation, melena or hematochezia. Vitals are normal. EKG, Labs, CXR, fluids and meds ordered.EKG shows ST depression in anterior and septal leads, flat and inverted T-waves. Changed compared with EKG from 2007. EKG reviewed by cardiology team,Last stress test is negative cardiac echo normal. Per Cardiology no invasive workup needed. We will start patient on empiric antibiotic for possible infectious pancreatitis. Started patient on IV fluid Cipro and Flagyl. In addition to Protonix. I started clear liquid diet advanced slowly as tolerated. Will start patient on Protonix for gastritis. No evidence of GI bleeding. Counseling patient about alcohol and tobacco cessation. Patient tolerated her meals today. Patient denies any nausea or vomiting. Discussed with patient that she needs to follow up with government employee as an outpatient. Close monitoring of her electrolytes as outpatient counseling patient about high phosphorus diet - Time Spent with Patient Total time spent providing and/or coordinating discharge services: Greater than 30 minutes - Constitutional Vitals: Temp Pulse Resp BP Pulse Ox 99.9 F H 86 16 136/68 94 12/27/16 11:19 12/27/16 11:19 12/27/16 11:19 12/27/16 11:19 12/27/16 11:19 General appearance: Present: cooperative, A&O X 3, pleasant - Head Head exam: Present: atraumatic, normocephalic - Neck Neck exam general surgery: Present: supple, trachea midline. Absent: lymphadenopathy - Respiratory Respiratory exam: Present: CTAB. Absent: accessory muscle use, rales, rhonchi, wheezes - Cardiovascular Cardiovascular exam: Present: RRR, +S1, +S2. Absent: diastolic murmur, gallop, rubs, systolic murmur - GI/Abdominal GI/Abdominal exam: Present: normal bowel sounds, soft, tenderness (mild epigastric and left UQ abdominal tenderness ), no peritoneal signs. Absent: distended - Extremities Exam Extremities exam: Present: warm. Absent: calf tenderness, cyanotic, pedal edema - Neurological Exam Neurological exam: Present: CN II-XII intact, oriented X3, no focal deficits - Skin Skin exam: Present: dry, intact - VTE Documentation of Mechanical Device: Graduated compression elastic hosiery
--- NOTE | 2016-12-28 11:01 | Electrocardiograph Report ---
[address] [place] [address] Test Date: 2016-12-26 Pat Name: Cesilia Mciknney Department: 113 Room: 3B44 Gender: F Burr Bench Operator: : [id number] Requested By: Juve Fonseca Order Number: [id number] Reading MD: Catalina Regan Measurements Intervals [place] Rate: 84 P: 54 NV: 122 QRS: 27 QRSD: 88 T: 77 QT: 367 QTc: 409 Interpretive Statements SINUS RHYTHM MODERATE T-WAVE ABNORMALITY, CONSIDER ANTERIOR ISCHEMIA Electronically Signed On 12-28-2016 10:59:24 EDT by Catalina Regan
== END 2016-12-27 16:04 | disposition home or self-care (01) | DRG 439 ==
LOC: EMEROO 04:07 → 3ANU 04:07 → 3BNU 12:23
PROVIDERS: ADMIT Internal Medicine; ATTEND Internal Medicine

== ENCOUNTER 2017-12-10 18:44 | Inpatient (IN) ==
--- NOTE | 2017-12-10 19:07 | Emergency Department Note ---
Addendum entered and electronically signed by Oleg Johnston DO 12/10/17 22:15: Addendum: Patient had denied any alcohol use to me originally. However, daughter came out of room and noted that patient has admitted to her that she drinks 1-2 alcoholic beverages a day. This information was forwarded to hospitalist Dr. Head. Original Note: Disposition Clinical Impression: Pancreatitis Qualifiers: Chronicity: acute Pancreatitis type: unspecified pancreatitis type Acute pancreatitis complication: unspecified Qualified Code(s): K85.90 - Acute pancreatitis without necrosis or infection, unspecified UTI (urinary tract infection) Qualifiers: Urinary tract infection type: site unspecified Hematuria presence: without hematuria Qualified Code(s): N39.0 - Urinary tract infection, site not specified Disposition: Admitted As Inpatient Condition: Good Time of Disposition: 21:17 Abdominal Pain HPI - General Chief Complaint: ED Abdominal Pain Stated Complaint: Upper abdominal pain Time Seen by Provider: 12/10/17 19:05 Source: EMS Mode of arrival: EMS Limitations: no limitations Nursing Notes Reviewed: Yes Vital Signs Reviewed: Yes - History of Present Illness HPI Narrative: Patient is a 72-year-old female with past medical history of pancreatitis one year ago, cholecystectomy in July 2017, hypertension. She presents today due to concern for epigastric pain. She states that this pain started around 4 hours ago, was 6 or 7 out of 10 at its worst, 3 out of 10 currently. She describes the pain as a gripping pain that is sharp in nature and radiates to her back. Denies any chest pain, shortness of breath, nausea, vomiting, fevers , diarrhea, constipation, vaginal bleeding or discharge, dysuria, hematuria. She says that this feels very similar to previous pancreatitis but she feels that she may currently at this time. She does report that about a year ago, she was told that her pancreatitis could be due to gallstones which/she had a subsequent cholecystectomy in July of this year. Pain Scale: 3 - Related Data Home Medications Medication Instructions Recorded Confirmed Aspirin [Lo-Dose Aspirin EC] 81 mg PO QAM 08/01/17 12/10/17 Levothyroxine [Synthroid] 75 mcg PO QAM 08/01/17 12/10/17 Lisinopril [Zestril] 10 mg PO QAM 08/01/17 12/10/17 Naproxen Sodium [Aleve] 220 - 440 mg PO Q12H PRN 08/01/17 12/10/17 Potassium Chloride Elixir 10 meq PO DAILY 08/01/17 12/10/17 [Potassium Chloride] Pravastatin Sodium 10 mg PO HS 08/01/17 12/10/17 Allergies Allergy/AdvReac Type Severity Reaction Status Date / Time No Known Allergies Allergy Verified 12/10/17 18:58 All systems ED: reviewed and negative except as stated. Constitutional: Denies: fever Cardiovascular: Denies: chest pain, palpitations Respiratory: Denies: cough, dyspnea Gastrointestinal: Reports: abdominal pain. 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 Psychiatric history: Reports: no psych history - Social History Smoking status: Current every day smoker Alcohol use: Reports: occasionally Drug use: Reports: none Physical Exam - General Limitations: no limitations General appearance: alert, in no apparent distress - Head Head exam: atraumatic, normocephalic, normal inspection - Eye Eye exam: Present: normal appearance, PERRL, EOMI - ENT ENT exam: normal exam, normal oropharynx, mucous membranes moist - Neck Neck exam: Present: normal inspection, full ROM, trachea midline - Chest Chest inspection: Present: normal inspection, symmetric chest wall rise - Respiratory Respiratory exam: Present: normal lung sounds bilaterally - Cardiovascular Cardiovascular exam: Present: regular rate, normal rhythm, normal heart sounds - Abdominal Exam Abdominal exam: Present: soft, tenderness (mild to moderate epigastric tenderness). Absent: distention, guarding, rebound, rigidity, Rossi's sign, Rovsing's sign, tenderness at McBurney's Point - Extremities Exam Extremities exam: Present: normal inspection, full ROM. Absent: tenderness, pedal edema - Neurological Exam Neurological exam: Present: alert, oriented X3 - Psychiatric Psychiatric exam: Present: normal affect, normal mood - Skin Skin exam: Present: warm, dry, intact, normal color Course Course Narrative: Patient only hypertensive. Otherwise, the rest of the vitals within normal limits. Physical exam showed epigastric tenderness, mild to moderate. Otherwise soft. Heart and lung exam within normal limits. EKG obtained and shows normal sinus rhythm with no acute ST changes. We discussed that this could be another episode of pancreatitis. We will obtain basic labs, LFTs, lipase. We will also obtain troponin, chest x-ray to assess for any cardiac etiology. Currently, patient is declining any pain or nausea medication, rates her pain 3/10. 21:14 troponin negative. No elevation white blood cell count. Lipase greater than 1800. Patient has required fentanyl for pain during her stay now. Discussed discharge home versus coming into the hospital. Patient does not feel comfortable with going home at this time. With age and other comorbidities , we will admit for further care, nothing by mouth status, and pain control. We will start maintenance fluids at this time and will admit to the hospitalist for further care. Patient also has evidence of UTI. Rocephin given. Chest X-Ray 12/10/17 19:25 IMPRESSION: No evidence pneumonia or pleural effusion. D/ / Adrian Weathers / Adrian Weathers Interpreting Provider: Adrian Weathers Vital Signs Temperature 97.8 F 12/10/17 18:57 Pulse Rate 92 12/10/17 18:57 Respiratory Rate 16 12/10/17 18:57 Blood Pressure 172/87 12/10/17 18:57 O2 Sat by Pulse Oximetry 97 12/10/17 18:57 Temperature 97.9 F 12/10/17 22:57 Pulse Rate 78 12/10/17 22:57 Respiratory Rate 15 12/10/17 22:57 Blood Pressure 169/73 12/10/17 22:57 O2 Sat by Pulse Oximetry 96 12/10/17 22:57 Oxygen Delivery Oxygen Delivery Room Air Abdominal Pain - MDM Narrative Medical decision making narrative: Patient only hypertensive. Otherwise, the rest of the vitals within normal limits. Physical exam showed epigastric tenderness, mild to moderate. Otherwise soft. Heart and lung exam within normal limits. EKG obtained and shows normal sinus rhythm with no acute ST changes. We discussed that this could be another episode of pancreatitis. We will obtain basic labs, LFTs, lipase. We will also obtain troponin, chest x-ray to assess for any cardiac etiology. Currently, patient is declining any pain or nausea medication, rates her pain 05/03. 21:14 troponin negative. No elevation white blood cell count. Lipase greater than 1800. Patient has required fentanyl for pain during her stay now. Discussed discharge home versus coming into the hospital. Patient does not feel comfortable with going home at this time. With age and other comorbidities , we will admit for further care, nothing by mouth status, and pain control. We will start maintenance fluids at this time and will admit to the hospitalist for further care. Patient also has evidence of UTI. Rocephin given. - Medical Records Medical records reviewed: Yes I reviewed the patient's medical records. - Lab Data Lab results reviewed: Yes I reviewed the patient's lab results. Result diagrams: 12/10/17 19:49 12/10/17 19:49 Lab Results 12/10/17 12/10/17 12/10/17 Range/Units 19:49 19:49 19:49 WBC 11.1 (4.3-11.1) K/mcL RBC 4.24 (3.82-4.97) M/mcL Hgb 13.3 (11.5-15.4) g/dL Hct 39.8 (35.3-44.9) % MCV 93.9 (83.0-100.0) fL MCH 31.4 (28.0-33.3) pg MCHC 33.4 (31.6-35.5) g/dL RDW 13.4 (11.5-14.5) % Plt Count 259 (140-400) K/mcL MPV 9.1 L (9.4-12.4) fL Immature Gran % 0.6 (0-4) % Seg Neutrophils % 71.2 % Lymphocytes % 19.2 % Monocytes % 7.0 % Eosinophils % 1.4 % Basophils % 0.6 % Neutrophils # 7.9 (1.6-8.9) K/mcL Lymphocytes # 2.1 (0.6-4.6) K/mcL Monocytes # 0.8 (0.0-1.3) K/mcL Eosinophils # 0.2 (0.0-0.6) K/mcL Basophils # 0.1 (0.0-0.2) K/mcL Sodium 137 (136-145) mEq/L Potassium 3.5 (3.5-5.1) mEq/L Chloride 106 (98-107) mEq/L Carbon Dioxide 23 (23-29) mEq/L BUN 11 (8-23) mg/dL Creatinine 0.60 (0.60-1.20) mg/dL Est GFR ( Amer) > 60 (> 60) Est GFR (Non-Af Amer) > 60 (> 60) BUN/Creatinine Ratio 18 (6-26) Glucose 108 H (70-105) mg/dL Calculated Osmolality 284 (280-300) Calcium 9.3 (8.6-10.3) mg/dL Total Bilirubin 0.6 (0.3-1.0) mg/dL Direct Bilirubin 0.1 (0.0-0.2) mg/dL Indirect Bilirubin 0.5 (0.0-1.2) mg/dL AST 23 (13-39) Units/L ALT 18 (7-52) Units/L Alkaline Phosphatase 78 (34-104) Units/L Troponin I < 0.03 (< 0.04) ng/mL Serum Total Protein 6.0 L (6.4-8.9) g/dL Albumin 4.0 (3.5-5.7) g/dL Globulin 2.0 L (2.4-3.5) g/dL Albumin/Globulin Ratio 2.0 (1.1-2.2) Lipase > 1800 H (11-82) Units/L Urine Color (Yellow) Urine Clarity (Clear) Urine pH (5.0-8.0) pH Units Ur Specific Hood (1.010-1.025) Urine Protein (Neg-Trace) mg/dL Urine Glucose (UA) (Normal) mg/dL Urine Ketones (Negative) mg/dL Urine Blood (Negative) Urine Nitrite (Negative) Urine Bilirubin (Negative) Urine Urobilinogen (Normal) mg/dL Ur Leukocyte Esterase (Negative) Urine Microscopic RBC (0-3) per hpf Urine Microscopic WBC (0-3) per hpf Ur Squamous Epith Cells (None-Few) per lpf Urine Bacteria (None-Few) per hpf Hyaline Casts (None-Few) per lpf Ur Culture Indicated? (NO) 12/10/17 Range/Units 21:02 WBC (4.3-11.1) K/mcL RBC (3.82-4.97) M/mcL Hgb (11.5-15.4) g/dL Hct (35.3-44.9) % MCV (83.0-100.0) fL MCH (28.0-33.3) pg MCHC (31.6-35.5) g/dL RDW (11.5-14.5) % Plt Count (140-400) K/mcL MPV (9.4-12.4) fL Immature Gran % (0-4) % Seg Neutrophils % % Lymphocytes % % Monocytes % % Eosinophils % % Basophils % % Neutrophils # (1.6-8.9) K/mcL Lymphocytes # (0.6-4.6) K/mcL Monocytes # (0.0-1.3) K/mcL Eosinophils # (0.0-0.6) K/mcL Basophils # (0.0-0.2) K/mcL Sodium (136-145) mEq/L Potassium (3.5-5.1) mEq/L Chloride (98-107) mEq/L Carbon Dioxide (23-29) mEq/L BUN (8-23) mg/dL Creatinine (0.60-1.20) mg/dL Est GFR ( Amer) (> 60) Est GFR (Non-Af Amer) (> 60) BUN/Creatinine Ratio (6-26) Glucose (70-105) mg/dL Calculated Osmolality (280-300) Calcium (8.6-10.3) mg/dL Total Bilirubin (0.3-1.0) mg/dL Direct Bilirubin (0.0-0.2) mg/dL Indirect Bilirubin (0.0-1.2) mg/dL AST (13-39) Units/L ALT (7-52) Units/L Alkaline Phosphatase (34-104) Units/L Troponin I (< 0.04) ng/mL Serum Total Protein (6.4-8.9) g/dL Albumin (3.5-5.7) g/dL Globulin (2.4-3.5) g/dL Albumin/Globulin Ratio (1.1-2.2) Lipase (11-82) Units/L Urine Color Yellow (Yellow) Urine Clarity Cloudy A (Clear) Urine pH 6.5 (5.0-8.0) pH Units Ur Specific Hood 1.014 (1.010-1.025) Urine Protein Negative (Neg-Trace) mg/dL Urine Glucose (UA) Normal (Normal) mg/dL Urine Ketones Negative (Negative) mg/dL Urine Blood Trace H (Negative) Urine Nitrite Positive A (Negative) Urine Bilirubin Negative (Negative) Urine Urobilinogen Normal (Normal) mg/dL Ur Leukocyte Esterase Moderate H (Negative) Urine Microscopic RBC 0-3 (0-3) per hpf Urine Microscopic WBC 30-50 H (0-3) per hpf Ur Squamous Epith Cells Few (None-Few) per lpf Urine Bacteria Many H (None-Few) per hpf Hyaline Casts None Seen (None-Few) per lpf Ur Culture Indicated? YES A (NO) - Radiology Data Radiology results reviewed: Yes I reviewed the patient's radiology results. - EKG Data EKG attestation: Yes I reviewed and interpreted this EKG. EKG results narrative: 12/10/2017 at 19:18. Normal sinus rhythm. Rate 78. DE 115. QRS 89. PT 456. Normal axis. No acute ST elevation or depression. S.B.A.R. - S.B.A.R. Situation: Demographics, MOA Background: Presenting Complaint, Relevant PMH, Meds, & Allergies Assessment: Vital Signs, Course and respsone to treatment, Exam Concerns, Patient/Family Expectation, Pertinant Lab Results, Outstanding Labs Recommendation: Barrier(s) to disposition, Recommendation based on pending studies, treatments, or consults S.B.A.R. Report Given to: Dr. Head S.B.AMurray Repor Time: 21:44 Attestation Statement - Attestation Attestation: DR Russell note: Pt seen in conjunction w/ resident Dr Johnston; Please see his charting for complete documentation; I spent face to face time w/ the pt and agree w/ pt's treatment and disposition; Pain improved in the past 1 hr per pt; no n/v; focal /epigastric pain only for hours today; no indication for imaging with sx being this early; lipase results noted; will admit for early/ acute/non comlicated pancreatitis at this time;
[2017-12-10 20:01] LABS: Basophils # 0.1 K/mcL (0.0-0.2); Basophils % 0.6 %; Eosinophils # 0.2 K/mcL (0.0-0.6); Eosinophils % 1.4 %; Hematocrit 39.8 % (35.3-44.9); Hemoglobin 13.3 g/dL (11.5-15.4); Immature Granulocytes % 0.6 % (0-4); Lymphocytes # 2.1 K/mcL (0.6-4.6); Lymphocytes % 19.2 %; Mean Corpuscular HGB Conc 33.4 g/dL (31.6-35.5); Mean Corpuscular Hemoglobin 31.4 pg (28.0-33.3); Mean Corpuscular Volume 93.9 fL (83.0-100.0); Mean Platelet Volume 9.1 fL (9.4-12.4); Monocytes # 0.8 K/mcL (0.0-1.3); Neutrophils # 7.9 K/mcL (1.6-8.9); Platelet Count 259 K/mcL (140-400); Red Blood Count 4.24 M/mcL (3.82-4.97); Red Cell Distribution Width 13.4 % (11.5-14.5); Segmented Neutrophils % 71.2 %
[2017-12-10 20:38] LABS: Alanine Aminotransferase 18 Units/L (7-52); Aspartate Amino Transferase 23 Units/L (13-39); BUN/Creatinine Ratio 18 (6-26); Bilirubin,Direct 0.1 mg/dL (0.0-0.2); Bilirubin,Indirect 0.5 mg/dL (0.0-1.2); Bilirubin,Total 0.6 mg/dL (0.3-1.0); Blood Urea Nitrogen 11 mg/dL (8-23); Calcium 9.3 mg/dL (8.6-10.3); Carbon Dioxide 23 mEq/L (23-29); Chloride 106 mEq/L (98-107); Glucose 108 mg/dL (70-105); Osmolality,Calculated 284 (280-300); Potassium 3.5 mEq/L (3.5-5.1); Sodium 137 mEq/L (136-145); eGFR For Non-African Americans > 60 (> 60)
[2017-12-10 21:02] LABS: Alkaline Phosphatase 78 Units/L (34-104); Lipase > 1800 Units/L (11-82)
[2017-12-10] MEDS ORDERED: *HR* FentaNYL (PF) 100 MCG/2 ML VIAL IVP ONE (21:04)
[2017-12-10 21:13] LABS: Bilirubin,Urine Negative (Negative); Blood,Urine Trace (Negative); Clarity,Urine Cloudy (Clear); Color,Urine Yellow (Yellow); Glucose,Urine (UA) Normal (Normal); Ketones,Urine Negative (Negative); Leukocyte Esterase,Urine Moderate (Negative); Nitrite,Urine Positive (Negative); PH,Urine 6.5 pH Units (5.0-8.0); Protein,Urine Negative (Neg-Trace); Specific Gravity,Urine 1.014 (1.010-1.025); Urobilinogen,Urine Normal (Normal)
[2017-12-10 21:15] LABS: Bacteria,Urine Many per hpf (None-Few); Hyaline Casts,Urine None Seen per lpf (None-Few); RBC,Urine 0-3 per hpf (0-3); Squamous Epithelial Cell,Urine Few per lpf (None-Few); WBC,Urine 30-50 per hpf (0-3)
[2017-12-10] MEDS ORDERED: cefTRIAXone 1,000 MG in Water for inj. (sterile) 20 ML 10 ML IVP ONE (22:00)
[2017-12-10] MEDS: 0.9 % Sodium Chloride 1,000 ML IVC SCH (22:02)
[2017-12-11] MEDS ORDERED: Isovue-370 500 ML INFUS..BTL IV ONE (00:26)
[2017-12-11] MEDS ORDERED: Naloxone 0.4 MG/ML INJ IVP PRN (00:41)
[2017-12-11] MEDS ORDERED: *HR* LORazepam 2 MG/ML VIAL IVP PRN ×3 (00:51)
--- NOTE | 2017-12-11 00:51 | Internal Med History&Physical ---
Addendum entered and electronically signed by Kevin Head MD 12/11/17 20:08: I saw and evaluated the patient. I reviewed the residents note, performed my own physical examination and agree with findings and plan as documented in the residents note. Patient seen and examined on 12/11/17. Patient has a history of alcohol use, and has had pancreatitis in the past. She states that she does not feel abdominal pain. We will continue to monitor, put patient on CIWA. We ordered abdominal CT which showed a cystic nodule at the pancreatic head as well as increased pancreatic ductal dilatation when compared to previous CT. We will have GI see the patient in the AM for further recommendations. Original Note: Date of Encounter: 12/11/17 Time of Encounter: 00:45 Internal Medicine - H&P: HPI Chief complaint: abdominal pain Admitted From: Home Plans for Post Hospital Care: Home History of present illness: Ms. Mckinney is a 72 year old female presents with cc of abd pain started around noon located mid epigastric region, initially felt like heartburn then worsened without radiation. Not associated with N/V/D. Denies fever, chills, chest pain, sob. Reports hx of pancreatitis in 2017 2nd to gallstone obstruction and alcohol use, s/p cholecystectomy in 2018. She continues to drink hard liquor (2 cups). States this pain felt similar to when she had pancreatitis so she came in. She also smokes 0.5 packs per day. Denies weight loss. Also has hx of hyperlipidemia and last triglycerides were 251. Past Med Surg Social Fam HX - Past Medical History Medical history: hyperlipidemia, hypertension Additional medical history: sleep apnea, goiter, pancreatitis Psychiatric history: no psych history - Past Surgical History Surgical History: appendectomy, cholecystectomy Additional surgical history: kidney repair right, tubal, - Social History Smoking Status: Current every day smoker Packs per day: 0.5 Smokeless Tobacco Status: No Alcohol use: heavy Drug use: none - Family History Mother Hx Family Cancer: Yes (Breast cancer) Father Living Status: Hx Family Cardiac Disorders: Yes (Heart disease) Internal Medicine - H&P: Meds Aspirin [Lo-Dose Aspirin EC] 81 mg PO QAM 08/01/17 [History] Levothyroxine [Synthroid] 75 mcg PO QAM 08/01/17 [History] Lisinopril [Zestril] 10 mg PO QAM 08/01/17 [History] Naproxen Sodium [Aleve] 220 - 440 mg PO Q12H PRN 08/01/17 [History] Potassium Chloride Elixir [Potassium Chloride] 10 meq PO DAILY 08/01/17 [History] Pravastatin Sodium 10 mg PO HS 08/01/17 [History] Allergy/AdvReac Type Severity Reaction Status Date / Time No Known Allergies Allergy Verified 12/10/17 18:58 All Systems PM: A 10-system review of systems was performed and is negative for pertinent findings except as documented above in the HPI. Review of systems: Constitutional: Denies fever, chills HEENT: Denies headache, trauma, blurry vision, eye discharge, ear pain, ear discharge neck pain, sore throat, rhinorrhea Heart: Denies chest pain palpitations, LE edema Lungs: Denies shortness of breath cough Abdomen: reports abdominal pain, denies nausea vomiting diarrhea MSK: Denies back pain, falls, joint pain Kidney: Denies dysuria, hematuria Skin: Denies rash, ulcers Neuro: Denies numbness and tingling Psych: denies axniety, depression - Constitutional Vitals: Temp Pulse Resp BP Pulse Ox 97.9 F 78 15 169/73 96 12/10/17 22:57 12/10/17 22:57 12/10/17 22:57 12/10/17 22:57 12/10/17 22:57 Exam: General: pleasant, without distress HEENT: Head atraumatic, normocephalic, EOMI, PERRL, absent ear discharge or trauma, Moist Mucous Membranes, uvula midline absent scleral icterus Neck: nontender to palpation, absent lymphadenopathy, Cardiovascualr: Regular rate and rhythm with no murmur, absent gallops or rubs, absent pedal edema, radial pulses 2 out of 4 Lungs: Clear to auscultation bilaterally, not in respiratory distress Abdomen: Soft nontender, nondistended positive bowel sounds, absent hepatomegaly Skin: warm and dry, absent rash, absent open wounds and nodules MSK: absent clubbing, cyanosis, joints without swelling absent jaundice Neuro: Cranial nerves II through XII intact, UE and LE sensation equal bilaterally, UE and LEstrength 5/5, alert oriented 3, Psych: good insight and judgment, Internal Med - H&P Results - Labs CBC & Chem 7: 12/10/17 19:49 12/10/17 19:49 - Assessment and plan (1) Pancreatitis, acute Current Visit: Yes Status: Acute Assessment and plan: alcoholic pancreatitis drinks 2 cups of hard liquor a day previously had pancreatitits in 2017 2nd to alcohol. s/p cholecystectomy for biliary dyskinesia in 07/2017 normal bilious, ast, alt, alk phos plan: IVF, zofran prn nausea, npo, ct abdomen/pelvis, ethanol level, lipid panel. Qualifiers: Pancreatitis type: alcohol induced Acute pancreatitis complication: unspecified Qualified Code(s): K85.20 - Alcohol induced acute pancreatitis without necrosis or infection (2) Alcohol abuse Current Visit: Yes Status: Acute Assessment and plan: alcohol use as stated above will start ciwa protol no signs of withdrawal banana bag patient educated on alcohol cessation. (3) Hyperlipidemia Current Visit: Yes Status: Acute Assessment and plan: hx of hyperlipidemia recheck lipid panel Qualifiers: Hyperlipidemia type: unspecified Qualified Code(s): E78.5 - Hyperlipidemia, unspecified (4) UTI (urinary tract infection) Current Visit: Yes Status: Acute Assessment and plan: + nitrites and bacteria on UA only meets one sirs criteria: HR 92 started ceftriaxone total 3 day course Qualifiers: Urinary tract infection type: acute cystitis Hematuria presence: without hematuria Qualified Code(s): N30.00 - Acute cystitis without hematuria - Time Spent With Patient Total time spent is greater than 50% in coordination of care (as documented) at patient's floor/unit and/or counseling patient:
[2017-12-11 01:17] LABS: BUN/Creatinine Ratio 16 (6-26); Blood Urea Nitrogen 9 mg/dL (8-23); Calcium 8.8 mg/dL (8.6-10.3); Carbon Dioxide 21 mEq/L (23-29); Chloride 107 mEq/L (98-107); Cholesterol 190 mg/dL (< 200); Glucose 104 mg/dL (70-105); HDL Cholesterol 48 mg/dL (40-59); LDL Cholesterol,Calculated 105 mg/dL (0-99); Osmolality,Calculated 283 (280-300); Potassium 3.5 mEq/L (3.5-5.1); Sodium 137 mEq/L (136-145); Triglycerides 185 mg/dL (< 150); eGFR For Non-African Americans > 60 (> 60)
[2017-12-11] MEDS: OXYCODONE Oral CONC 10 MG/0.5 ML ORAL.SYG SL PRN ×4 (01:44→23:38)
[2017-12-11] MEDS: 0.9 % Sodium Chloride 1,000 ML IVC SCH ×4 (12:19→22:56)
[2017-12-11] MEDS: *HR* Heparin 5,000 UNIT/ML VIAL SQ SCH ×3 (12:19→21:28)
--- NOTE | 2017-12-11 13:33 | Electrocardiograph Report ---
[address] [place], [place] [address] Test Date: 2017-12-10 Pat Name: Cesilia Mckinney Department: [id number] Room: 3A43 Gender: F [employer]boat [employer]: : 1945 Requested By: Oleg Johnston Order Number: [id number] Reading MD: Catalina Regan Measurements Intervals [place] Rate: 78 P: 88 [place]: 115 QRS: 72 QRSD: 89 T: 97 QT: 400 QTc: 456 Interpretive Statements Sinus rhythm Borderline short [place] interval Nonspecific ST abnormalities Electronically Signed On 12-11-2017 13:31:48 EDT by Catalina Regan
[2017-12-11] MEDS: Thiamine (B-1) 100 MG, Folic Acid 1 MG, MVI, adult with vitamin K 10 ML in 0.9 % Sodi... IVPB SCH (17:58)
[2017-12-11] MEDS ORDERED: D5% in Water 1,000 ML IVC PRN (23:48)
[2017-12-11] MEDS ORDERED: Dextrose Gel 15 GM/37.5 ML TUBE PO PRN ×2 (23:48)
[2017-12-12] MEDS ORDERED: cefTRIAXone 1,000 MG in Water for inj. (sterile) 20 ML 10 ML IVPB SCH (01:00)
[2017-12-12] MEDS: 0.9 % Sodium Chloride 1,000 ML IVC SCH ×4 (04:11→21:20)
[2017-12-12] MEDS: *HR* Heparin 5,000 UNIT/ML VIAL SQ SCH ×3 (05:42→21:19)
[2017-12-12] MEDS: *HR* Dextrose 50 % in Water (Syg) 50 ML SYRINGE IVP PRN ×2 (05:42→11:18)
[2017-12-12] MEDS: Aspirin Enteric Coated 81 MG Tablet PO SCH (08:05)
[2017-12-12] MEDS: OXYCODONE Oral CONC 10 MG/0.5 ML ORAL.SYG SL PRN ×3 (08:05→20:00)
[2017-12-12] MEDS: Ondansetron ODT 4 MG TAB.RAPDIS SL PRN (08:06)
[2017-12-12] MEDS ORDERED: Potassium Chloride Elixir 20 MEQ/15 ML UDC PO SCH (09:00)
--- NOTE | 2017-12-12 10:32 | Internal Med Progress Note ---
Hospitalist Progress Note - Encounter Date of Encounter: 12/12/17 Time of Encounter: 10:31 - Subjective Interval History: Patient seen and examined this morning. No overnight events. Feeling better. Pain improved. No N/V/D. Had BM today. Urinating well. - Exam Vitals: Temp Pulse Resp BP Pulse Ox 97.5 F L 71 14 118/64 91 12/12/17 10:10 12/12/17 10:10 12/12/17 10:10 12/12/17 10:10 12/12/17 10:10 Exam: General: pleasant, without distress HEENT: Head atraumatic, normocephalic, EOMI, PERRL, Moist Mucous Membranes, CVS: RRR, S1, s2 normal, No MRG. no pedal edema, radial pulses 2 out of 4 RS: CTAB, No adventitious lung sounds Abdomen: Soft nontender, nondistended positive bowel sounds, absent hepatomegaly Skin: warm and dry, absent rash, absent open wounds and nodules Neuro: Cranial nerves II through XII intact, alert oriented 3, No focal signs Psych: good insight and judgment, - Summary of Assessment and Plan Summary of Assessment and Plan: Pancreatitis, acute - Likely alcoholic pancreatitis - CT with following finding Peripancreatic inflammatory change, compatible with underlying pancreatitis. When compared to prior there is increased pancreatic ductal dilatation. In addition, there also has been development of a cystic nodule in the pancreatic head region. - h/o pancreatitits in 2016 2nd to alcohol. s/p cholecystectomy in 07/2017 - No plans from GI for endoscopy. Cystic nodule not concerning per GI. To f/u GI in 4 wee0ks. - c/w IVF. - Progress diet as tolerated. Lt Adenxal nodule - f/u Pelvic US Alcohol abuse - counseled on cessation - c/w ciwa protocol - no signs of withdrawal - Stop banana bag now. Hyperlipidemia - lipid panel with elevated LDL and TG - TG not significantly elevated. UTI - Urine growing GNR - c/w ceftriaxone - f/u cultures. - Time Spent with Patient Total time spent is greater than 50% in coordination of care (as documented) at patient's floor/unit and/or counseling patient: Internal Medicine: Result - Labs CBC & Chem 7: 12/10/17 19:49 12/11/17 00:37 Consult Discharge Plan - Plan Referrals: Cristiana Burr, [facility]AG[facility] C[facility] MANAGER [Primary Care Provider] -
[2017-12-12] MEDS ORDERED: 0.9 % Sodium Chloride 1,000 ML IV.SOLN IV ONE (16:22)
[2017-12-12] MEDS ORDERED: *HR* Heparin 5,000 UNIT/ML VIAL IVP ONE (16:22)
[2017-12-12] MEDS ORDERED: OXYCODONE Oral CONC 10 MG/0.5 ML ORAL.SYG PO ONE (16:22)
[2017-12-12] MEDS: Thiamine (B-1) 100 MG, Folic Acid 1 MG, MVI, adult with vitamin K 10 ML in 0.9 % Sodi... IVPB SCH (18:22)
[2017-12-13] MEDS: OXYCODONE Oral CONC 10 MG/0.5 ML ORAL.SYG SL PRN ×3 (00:05→11:00)
[2017-12-13] MEDS: 0.9 % Sodium Chloride 1,000 ML IVC SCH ×3 (02:56→09:54)
[2017-12-13 05:04] LABS: BUN/Creatinine Ratio 5 (6-26); Blood Urea Nitrogen 3 mg/dL (8-23); Calcium 7.9 mg/dL (8.6-10.3); Carbon Dioxide 19 mEq/L (23-29); Chloride 115 mEq/L (98-107); Glucose 103 mg/dL (70-105); Lipase 285 Units/L (11-82); Osmolality,Calculated 289 (280-300); Potassium 3.4 mEq/L (3.5-5.1); Sodium 141 mEq/L (136-145); eGFR For Non-African Americans > 60 (> 60)
[2017-12-13] MEDS: *HR* Heparin 5,000 UNIT/ML VIAL SQ SCH (05:36)
[2017-12-13] MEDS ORDERED: Gadolinium Contrast Agent (WT Based) IV PRN (08:27)
[2017-12-13] MEDS: Aspirin Enteric Coated 81 MG Tablet PO SCH (08:40)
[2017-12-13] MEDS ORDERED: cefTRIAXone 1,000 MG in Water for inj. (sterile) 20 ML 10 ML IVP SCH (09:00)
[2017-12-13] MEDS ORDERED: Potassium Chloride Elixir 20 MEQ/15 ML UDC PO SCH (09:30)
[2017-12-13 10:07] VITALS: BP 138/59
[2017-12-13] MEDS: Ondansetron ODT 4 MG TAB.RAPDIS SL PRN (11:02)
--- NOTE | 2017-12-13 14:32 | Discharge Summary ---
- NOTES TO OUTPATIENT PROVIDER Notes to Outpatient Provider: Follow-up with oncology with regard to left adnexal mass in next week. Will need surgical evaluation as well. Date of Encounter: 12/13/17 Time of Encounter: 14:32 Hospital course: Ms. Mckinney is a 72 year old female past medical history of hypertension, hyperlipidemia with previous history of pancreatitis came with abdominal pain was found to have evidence of pancreatitis on CT scan as well as elevated lipase. She has had cholecystectomy done in 2018 when she had episodes of pancreatitis. However she continues to drink about 2 cups a day of hard liquor. Patient received IV fluids and had significant improvement over the course of next [address] also showed left adnexal nodule which on ultrasound follow-up was concerning for solid mass. Patient with significant family hist ory of breast and colon cancer in first and second-degree relatives. Follow-up MRI was obtained which showed minimally enhancing left adnexal 3.9 cm lesion likely to be endometrioma. low enhancing malignancy could not be excluded. Oncology was consulted and recommended follow-up outpatient next week. Discuss finding of imaging with patient. Patient comfortable to follow outpatient next week with PCP and oncologist. Tolerating diet well. I asked to have low-fat diet initially. Patient to also abstain from all alcohol. Discharge discussed with: patient, family, nurse, staff consultant - Time Spent with Patient Total time spent providing and/or coordinating discharge services: Greater than 30 minutes (45) - Discharge Medications Home Medications: Aspirin [Lo-Dose Aspirin EC] 81 mg PO QAM 08/01/17 [History] Levothyroxine [Synthroid] 75 mcg PO QAM 08/01/17 [History] Lisinopril [Zestril] 10 mg PO QAM 08/01/17 [History] Naproxen Sodium [Aleve] 220 - 440 mg PO Q12H PRN 08/01/17 [History] Potassium Chloride Elixir [Potassium Chloride] 10 meq PO DAILY 08/01/17 [History] Pravastatin Sodium 10 mg PO HS 08/01/17 [History] Allergies/Adverse Reactions: Allergy/AdvReac Type Severity Reaction Status Date / Time No Known Allergies Allergy Verified 12/10/17 18:58 Date of admission: 12/12/17 18:18 Primary care physician: Cristiana Burr CNP Consults: 12/11/17 20:03 Consult to Gastroenterology [CONS] Routine Consulting Provider: Gastroenterology Magdalene Reason for Consult: dialated pancreatitc duct, pancreatitis, pancreatic head cyst Call Completed: Yes 12/13/17 10:19 Consult to Oncology [CONS] Routine Consulting Provider: Oncology [facility] Reason for Consult: adnexal mass Call Completed: Yes Discharging clinician: Nereyda Cuellar - Constitutional Vitals: Temp Pulse Resp BP Pulse Ox 98.3 F 77 16 138/59 94 12/13/17 10:05 12/13/17 10:05 12/13/17 10:05 12/13/17 10:05 12/13/17 10:05 Exam: General: pleasant, without distress HEENT: Head atraumatic, normocephalic, EOMI, PERRL, Moist Mucous Membranes, CVS: RRR, S1, s2 normal, No MRG. no pedal edema. RS: CTAB, No adventitious lung sounds Abdomen: Soft nontender, nondistended positive bowel sounds, absent hepatomegaly Skin: warm and dry, absent rash, absent open wounds and nodules Neuro: Cranial nerves II through XII intact, alert oriented 3, No focal signs Psych: good insight and judgment, - Patient Status Disposition: Home, Self-Care Condition: Good - Discharge Instructions Follow Up With: Cristiana Burr CNP [Primary Care Provider] - - Diet and Activity Activity: resume usual activities as tolerated
== END 2017-12-13 16:23 | disposition home or self-care (01) | DRG 439 ==
LOC: EMEROOARM 18:44 → 3ANU 18:44 → SUATTDRO 21:51 → 3ANU 22:35
PROVIDERS: ADMIT Family Medicine; ATTEND Internal Medicine

== ENCOUNTER 2017-12-14 10:19 | Inpatient (IN) ==
[2017-12-14] MEDS ORDERED: Isovue-370 500 ML INFUS..BTL IV ONE (11:11)
[2017-12-14] MEDS ORDERED: 0.9 % Sodium Chloride 1,000 ML IVC ONE (11:12)
--- NOTE | 2017-12-14 11:12 | Emergency Department Note ---
Disposition Clinical Impression: HAP (hospital-acquired pneumonia) Pancreatitis Qualifiers: Chronicity: acute Pancreatitis type: alcohol induced Acute pancreatitis complication: no infection or necrosis Qualified Code(s): K85.20 - Alcohol induced acute pancreatitis without necrosis or infection Disposition: Admitted As Inpatient Condition: Fair General Adult HPI - General Chief complaint: ED Abdominal Pain Stated complaint: ABD Pain Time Seen by Provider: 12/14/17 11:06 Nursing Notes Reviewed: Yes Vital Signs Reviewed: Yes - History of Present Illness HPI Narrative: 72-year-old female presented to emergency department with lower costal rib pain bilaterally. Patient states she was recently admitted for pancreatitis. Says that this pain is a little different, a little worse than when she was admitted for finger tightness. 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 Has had cholecystectomy. Patient denies any fevers, chills, nausea, vomiting. Denies any chest pain, pressure, tightness. Denies any urinary frequency, dysuria, urgency, flank pain. Pain Scale: 8 - Related Data Home Medications Medication Instructions Recorded Confirmed Aspirin [Lo-Dose Aspirin EC] 81 mg PO QAM 08/01/17 12/14/17 Levothyroxine [Synthroid] 75 mcg PO QAM 08/01/17 12/14/17 Lisinopril [Zestril] 10 mg PO QAM 08/01/17 12/14/17 Naproxen Sodium [Aleve] 220 - 440 mg PO Q12H PRN 08/01/17 12/14/17 Potassium Chloride Elixir 10 meq PO DAILY 08/01/17 12/14/17 [Potassium Chloride] Pravastatin Sodium 10 mg PO HS 08/01/17 12/14/17 Allergies Allergy/AdvReac Type Severity Reaction Status Date / Time No Known Allergies Allergy Verified 12/14/17 13:14 All systems ED: reviewed and negative except as stated. Review of Systems: As Per HPI Constitutional: Denies: fever Cardiovascular: Denies: chest pain Respiratory: Denies: dyspnea Gastrointestinal: Reports: abdominal pain. 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 Absent: respiratory distress, accessory muscle use - Cardiovascular Cardiovascular exam: Present: regular rate, normal rhythm, normal heart sounds - Abdominal Exam Abdominal exam: Present: soft, tenderness, Rossi's sign Abdominal tenderness: Present: epigastrium, moderate - Extremities Exam Extremities exam: Present: normal capillary refill - Back Exam Back exam: Present: full ROM - Neurological Exam Neurological exam: Present: alert, oriented X3 - Psychiatric Psychiatric exam: Present: normal affect, normal mood - Skin Skin exam: Present: warm, dry, intact, normal color Course Vital Signs Temperature 98.0 F 12/14/17 10:44 Pulse Rate 86 12/14/17 10:44 Respiratory Rate 20 12/14/17 10:44 Blood Pressure 169/81 12/14/17 10:44 O2 Sat by Pulse Oximetry 94 12/14/17 10:44 Temperature 98.9 F 12/14/17 18:55 Pulse Rate 88 12/14/17 18:55 Respiratory Rate 17 12/14/17 18:55 Blood Pressure 148/63 12/14/17 18:55 O2 Sat by Pulse Oximetry 92 12/14/17 18:55 Oxygen Delivery Oxygen Delivery Room Air Medical Decision Making - [facility] Narrative Medical decision making narrative: 72-year-old female presents emergency department with concern for bilateral lower costal rib margin epigastric pain. Patient given pain medication here in the emergency department. EKG reveals new T-wave inversion in V2. Obtain a chest x-ray. This reveals bibasilar opacification with small effusions, left greater than right, suggesting possible pneumonia. Patient has recent admission as she has history of alcoholic pancreatitis. Her lipase is elevated in the 300s at this time. We will cover her for hospital-acquired pneumonia with pain, Zosyn, Levaquin. Patient admitted to the hospitalist. Chest X-Ray 12/14/17 11:11 IMPRESSION: Bibasilar opacification with small effusions, left greater than right, suggesting possible pneumonia. D/ / Joel Vigil MD / Joel Vigil MD Interpreting Provider: Joel Vigil MD Vital Signs Temperature 98.0 F 12/14/17 10:44 Pulse Rate 86 12/14/17 10:44 Respiratory Rate 20 12/14/17 10:44 Blood Pressure 169/81 12/14/17 10:44 O2 Sat by Pulse Oximetry 94 12/14/17 10:44 Temperature 98.0 F 12/14/17 11:18 Pulse Rate 76 12/14/17 12:06 Respiratory Rate 18 12/14/17 12:06 Blood Pressure 147/67 12/14/17 12:06 O2 Sat by Pulse Oximetry 96 12/14/17 12:06 Oxygen Delivery Oxygen Delivery Room Air - Lab Data Result diagrams: 12/14/17 11:37 12/14/17 11:37 Lab Results 12/14/17 12/14/17 12/14/17 Range/Units 11:11 11:36 11:37 WBC 9.8 (4.3-11.1) K/mcL RBC 3.88 (3.82-4.97) M/mcL Hgb 12.4 (11.5-15.4) g/dL Hct 35.8 (35.3-44.9) % MCV 92.3 (83.0-100.0) fL MCH 32.0 (28.0-33.3) pg MCHC 34.6 (31.6-35.5) g/dL RDW 13.2 (11.5-14.5) % Plt Count 237 (140-400) K/mcL MPV 9.7 (9.4-12.4) fL Immature Gran % 0.6 (0-4) % Seg Neutrophils % 79.6 % Lymphocytes % 11.9 % Monocytes % 6.5 % Eosinophils % 1.0 % Basophils % 0.4 % Neutrophils # 7.8 (1.6-8.9) K/mcL Lymphocytes # 1.2 (0.6-4.6) K/mcL Monocytes # 0.6 (0.0-1.3) K/mcL Eosinophils # 0.1 (0.0-0.6) K/mcL Basophils # 0.0 (0.0-0.2) K/mcL PT (9.4-12.1) Seconds INR Sodium (136-145) mEq/L Potassium (3.5-5.1) mEq/L Chloride (98-107) mEq/L Carbon Dioxide (23-29) mEq/L BUN (8-23) mg/dL Creatinine (0.60-1.20) mg/dL Est GFR ( Amer) (> 60) Est GFR (Non-Af Amer) (> 60) BUN/Creatinine Ratio (6-26) Glucose (70-105) mg/dL Calculated Osmolality (280-300) Lactic Acid 1.0 (0.5-2.2) mmol/L Calcium (8.6-10.3) mg/dL Magnesium (1.6-2.6) mg/dL Total Bilirubin (0.3-1.0) mg/dL AST (13-39) Units/L ALT (7-52) Units/L Alkaline Phosphatase (34-104) Units/L Troponin I (< 0.04) ng/mL Serum Total Protein (6.4-8.9) g/dL Albumin (3.5-5.7) g/dL Globulin (2.4-3.5) g/dL Albumin/Globulin Ratio (1.1-2.2) Triglycerides (< 150) mg/dL Cholesterol (< 200) mg/dL LDL Cholesterol, Calc (0-99) mg/dL VLDL Cholesterol, Calc (< 31) mg/dL HDL Cholesterol (40-59) mg/dL Cholesterol/HDL Ratio (0-4.9) Lipase (11-82) Units/L Urine Color Yellow (Yellow) Urine Clarity Clear (Clear) Urine pH 6.5 (5.0-8.0) pH Units Ur Specific [place] 1.016 (1.010-1.025) Urine Protein Negative (Neg-Trace) mg/dL Urine Glucose (UA) Normal (Normal) mg/dL Urine Ketones 80 H (Negative) mg/dL Urine Blood Moderate H (Negative) Urine Nitrite Negative (Negative) Urine Bilirubin Negative (Negative) Urine Urobilinogen Normal (Normal) mg/dL Ur Leukocyte Esterase Small H (Negative) Urine Microscopic RBC 0-3 (0-3) per hpf Urine Microscopic WBC 5-15 H (0-3) per hpf Ur Squamous Epith Cells Many H (None-Few) per lpf Urine Bacteria None Seen (None-Few) per hpf Hyaline Casts None Seen (None-Few) per lpf Ur Culture Indicated? NO. A (NO) 12/14/17 12/14/17 12/14/17 Range/Units 11:37 15:58 15:58 WBC (4.3-11.1) K/mcL RBC (3.82-4.97) M/mcL Hgb (11.5-15.4) g/dL Hct (35.3-44.9) % MCV (83.0-100.0) fL MCH (28.0-33.3) pg MCHC (31.6-35.5) g/dL RDW (11.5-14.5) % Plt Count (140-400) K/mcL MPV (9.4-12.4) fL Immature Gran % (0-4) % Seg Neutrophils % % Lymphocytes % % Monocytes % % Eosinophils % % Basophils % % Neutrophils # (1.6-8.9) K/mcL Lymphocytes # (0.6-4.6) K/mcL Monocytes # (0.0-1.3) K/mcL Eosinophils # (0.0-0.6) K/mcL Basophils # (0.0-0.2) K/mcL PT (9.4-12.1) Seconds INR Sodium 137 (136-145) mEq/L Potassium 3.2 L (3.5-5.1) mEq/L Chloride 105 (98-107) mEq/L Carbon Dioxide 22 L (23-29) mEq/L BUN 2 L (8-23) mg/dL Creatinine 0.55 L (0.60-1.20) mg/dL Est GFR ( Amer) > 60 (> 60) Est GFR (Non-Af Amer) > 60 (> 60) BUN/Creatinine Ratio 4 L (6-26) Glucose 96 (70-105) mg/dL Calculated Osmolality 280 (280-300) Lactic Acid (0.5-2.2) mmol/L Calcium 9.3 (8.6-10.3) mg/dL Magnesium 1.8 (1.6-2.6) mg/dL Total Bilirubin 0.7 (0.3-1.0) mg/dL AST 23 (13-39) Units/L ALT 14 (7-52) Units/L Alkaline Phosphatase 105 H (34-104) Units/L Troponin I < 0.03 (< 0.04) ng/mL Serum Total Protein 6.7 (6.4-8.9) g/dL Albumin 3.7 3.3 L (3.5-5.7) g/dL Globulin 3.0 (2.4-3.5) g/dL Albumin/Globulin Ratio 1.2 (1.1-2.2) Triglycerides 125 (< 150) mg/dL Cholesterol 167 (< 200) mg/dL LDL Cholesterol, Calc 106 H (0-99) mg/dL VLDL Cholesterol, Calc 25 (< 31) mg/dL HDL Cholesterol 36 L (40-59) mg/dL Cholesterol/HDL Ratio 4.6 (0-4.9) Lipase 339 H (11-82) Units/L Urine Color (Yellow) Urine Clarity (Clear) Urine pH (5.0-8.0) pH Units Ur Specific [place] (1.010-1.025) Urine Protein (Neg-Trace) mg/dL Urine Glucose (UA) (Normal) mg/dL Urine Ketones (Negative) mg/dL Urine Blood (Negative) Urine Nitrite (Negative) Urine Bilirubin (Negative) Urine Urobilinogen (Normal) mg/dL Ur Leukocyte Esterase (Negative) Urine Microscopic RBC (0-3) per hpf Urine Microscopic WBC (0-3) per hpf Ur Squamous Epith Cells (None-Few) per lpf Urine Bacteria (None-Few) per hpf Hyaline Casts (None-Few) per lpf Ur Culture Indicated? (NO) 12/14/17 Range/Units 15:58 WBC (4.3-11.1) K/mcL RBC (3.82-4.97) M/mcL Hgb (11.5-15.4) g/dL Hct (35.3-44.9) % MCV (83.0-100.0) fL MCH (28.0-33.3) pg MCHC (31.6-35.5) g/dL RDW (11.5-14.5) % Plt Count (140-400) K/mcL MPV (9.4-12.4) fL Immature Gran % (0-4) % Seg Neutrophils % % Lymphocytes % % Monocytes % % Eosinophils % % Basophils % % Neutrophils # (1.6-8.9) K/mcL Lymphocytes # (0.6-4.6) K/mcL Monocytes # (0.0-1.3) K/mcL Eosinophils # (0.0-0.6) K/mcL Basophils # (0.0-0.2) K/mcL PT 12.2 H (9.4-12.1) Seconds INR 1.1 Sodium (136-145) mEq/L Potassium (3.5-5.1) mEq/L Chloride (98-107) mEq/L Carbon Dioxide (23-29) mEq/L BUN (8-23) mg/dL Creatinine (0.60-1.20) mg/dL Est GFR ( Amer) (> 60) Est GFR (Non-Af Amer) (> 60) BUN/Creatinine Ratio (6-26) Glucose (70-105) mg/dL Calculated Osmolality (280-300) Lactic Acid (0.5-2.2) mmol/L Calcium (8.6-10.3) mg/dL Magnesium (1.6-2.6) mg/dL Total Bilirubin (0.3-1.0) mg/dL AST (13-39) Units/L ALT (7-52) Units/L Alkaline Phosphatase (34-104) Units/L Troponin I (< 0.04) ng/mL Serum Total Protein (6.4-8.9) g/dL Albumin (3.5-5.7) g/dL Globulin (2.4-3.5) g/dL Albumin/Globulin Ratio (1.1-2.2) Triglycerides (< 150) mg/dL Cholesterol (< 200) mg/dL LDL Cholesterol, Calc (0-99) mg/dL VLDL Cholesterol, Calc (< 31) mg/dL HDL Cholesterol (40-59) mg/dL Cholesterol/HDL Ratio (0-4.9) Lipase (11-82) Units/L Urine Color (Yellow) Urine Clarity (Clear) Urine pH (5.0-8.0) pH Units Ur Specific [place] (1.010-1.025) Urine Protein (Neg-Trace) mg/dL Urine Glucose (UA) (Normal) mg/dL Urine Ketones (Negative) mg/dL Urine Blood (Negative) Urine Nitrite (Negative) Urine Bilirubin (Negative) Urine Urobilinogen (Normal) mg/dL Ur Leukocyte Esterase (Negative) Urine Microscopic RBC (0-3) per hpf Urine Microscopic WBC (0-3) per hpf Ur Squamous Epith Cells (None-Few) per lpf Urine Bacteria (None-Few) per hpf Hyaline Casts (None-Few) per lpf Ur Culture Indicated? (NO) - EKG Data EKG #1 EKG attestation: Yes I reviewed and interpreted this EKG. EKG results narrative: 11:18 Heart rate 75 bpm, MI interval 130 ms, QRS duration 90 ms, QT 400 106, QTC 448 ms, normal axis. Sinus rhythm with a ventricular rate 75 bpm. New T-wave inversions in V2. No evidence of any ischemic ST changes.
[2017-12-14] MEDS ORDERED: *HR* FentaNYL (PF) 100 MCG/2 ML VIAL IVP ONE (11:17)
[2017-12-14] MEDS ORDERED: Ondansetron 4 MG/2 ML VIAL IVP ONE (11:17)
[2017-12-14 11:45] LABS: Bilirubin,Urine Negative (Negative); Blood,Urine Moderate (Negative); Clarity,Urine Clear (Clear); Color,Urine Yellow (Yellow); Glucose,Urine (UA) Normal (Normal); Ketones,Urine 80 mg/dL (Negative); Leukocyte Esterase,Urine Small (Negative); Nitrite,Urine Negative (Negative); PH,Urine 6.5 pH Units (5.0-8.0); Protein,Urine Negative (Neg-Trace); Specific Gravity,Urine 1.016 (1.010-1.025); Urobilinogen,Urine Normal (Normal)
[2017-12-14 11:46] LABS: Basophils % 0.4 %; Eosinophils # 0.1 K/mcL (0.0-0.6); Hematocrit 35.8 % (35.3-44.9); Hemoglobin 12.4 g/dL (11.5-15.4); Immature Granulocytes % 0.6 % (0-4); Lymphocytes # 1.2 K/mcL (0.6-4.6); Lymphocytes % 11.9 %; Mean Corpuscular HGB Conc 34.6 g/dL (31.6-35.5); Mean Corpuscular Volume 92.3 fL (83.0-100.0); Mean Platelet Volume 9.7 fL (9.4-12.4); Monocytes # 0.6 K/mcL (0.0-1.3); Monocytes % 6.5 %; Neutrophils # 7.8 K/mcL (1.6-8.9); Platelet Count 237 K/mcL (140-400); Red Blood Count 3.88 M/mcL (3.82-4.97); Red Cell Distribution Width 13.2 % (11.5-14.5); Segmented Neutrophils % 79.6 %
[2017-12-14 11:47] LABS: Bacteria,Urine None Seen per hpf (None-Few); Hyaline Casts,Urine None Seen per lpf (None-Few); RBC,Urine 0-3 per hpf (0-3); Squamous Epithelial Cell,Urine Many per lpf (None-Few)
[2017-12-14 12:06] LABS: Alanine Aminotransferase 14 Units/L (7-52); Albumin 3.7 g/dL (3.5-5.7); Albumin/Globulin Ratio 1.2 (1.1-2.2); Alkaline Phosphatase 105 Units/L (34-104); Aspartate Amino Transferase 23 Units/L (13-39); BUN/Creatinine Ratio 4 (6-26); Bilirubin,Total 0.7 mg/dL (0.3-1.0); Blood Urea Nitrogen 2 mg/dL (8-23); Calcium 9.3 mg/dL (8.6-10.3); Carbon Dioxide 22 mEq/L (23-29); Chloride 105 mEq/L (98-107); Glucose 96 mg/dL (70-105); Lipase 339 Units/L (11-82); Osmolality,Calculated 280 (280-300); Potassium 3.2 mEq/L (3.5-5.1); Sodium 137 mEq/L (136-145); Total Protein 6.7 g/dL (6.4-8.9); Troponin I < 0.03 ng/mL (< 0.04); eGFR For Non-African Americans > 60 (> 60)
[2017-12-14] MEDS ORDERED: Levofloxacin 750 MG/150 ML 750 MG/150 ML BAG IVPB ONE (12:07)
[2017-12-14] MEDS ORDERED: Piperacillin/Tazobactam 3.375 GM in 0.9 % Sodium Chloride Mini Bag 100 ML IVPB ONE (12:07)
[2017-12-14 13:11] LABS: Magnesium 1.8 mg/dL (1.6-2.6)
[2017-12-14] MEDS ORDERED: *HR* HYDROmorphone (PF) 1 MG/ML SYRINGE IVP ONE (13:51)
--- NOTE | 2017-12-14 14:23 | Emergency Department Note ---
Disposition Clinical Impression: HAP (hospital-acquired pneumonia) Pancreatitis Qualifiers: Chronicity: acute Pancreatitis type: alcohol induced Acute pancreatitis complication: no infection or necrosis Qualified Code(s): K85.20 - Alcohol induced acute pancreatitis without necrosis or infection Disposition: Admitted As Inpatient Referrals: Cristiana Burr, METEOROLOGICAL OBSERVER [Primary Care Provider] - Forms: ED Satisfaction Letter, Work/School Release General Adult HPI - General Chief complaint: ED Abdominal Pain Stated complaint: ABD Pain Time Seen by Provider: 12/14/17 11:06 Source: patient Limitations: no limitations - History of Present Illness Pain Scale: 6 - Related Data Home Medications Medication Instructions Recorded Confirmed Aspirin [Lo-Dose Aspirin EC] 81 mg PO QAM 08/01/17 12/14/17 Levothyroxine [Synthroid] 75 mcg PO QAM 08/01/17 12/14/17 Lisinopril [Zestril] 10 mg PO QAM 08/01/17 12/14/17 Naproxen Sodium [Aleve] 220 - 440 mg PO Q12H PRN 08/01/17 12/14/17 Potassium Chloride Elixir 10 meq PO DAILY 08/01/17 12/14/17 [Potassium Chloride] Pravastatin Sodium 10 mg PO HS 08/01/17 12/14/17 Allergies Allergy/AdvReac Type Severity Reaction Status Date / Time No Known Allergies Allergy Verified 12/14/17 13:14 Constitutional: Denies: fever Cardiovascular: Denies: chest pain Respiratory: Denies: dyspnea Gastrointestinal: Reports: abdominal pain. 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 - Social History Smoking Status: Current every day smoker Smokeless Tobacco Status: No Alcohol use: Reports: heavy Drug use: Reports: none Physical Exam - General Limitations: no limitations General appearance: alert, in no apparent distress Course Vital Signs Temperature 98.0 F 12/14/17 10:44 Pulse Rate 86 12/14/17 10:44 Respiratory Rate 20 12/14/17 10:44 Blood Pressure 169/81 12/14/17 10:44 O2 Sat by Pulse Oximetry 94 12/14/17 10:44 Temperature 98.0 F 12/14/17 11:18 Pulse Rate 83 12/14/17 13:08 Respiratory Rate 18 12/14/17 13:08 Blood Pressure 157/77 12/14/17 13:08 O2 Sat by Pulse Oximetry 97 12/14/17 13:08 Oxygen Delivery Oxygen Delivery Room Air Medical Decision Making - Lab Data Result diagrams: 12/14/17 11:37 12/14/17 11:37 Lab Results 12/14/17 12/14/17 12/14/17 Range/Units 11:11 11:36 11:37 WBC 9.8 (4.3-11.1) K/mcL RBC 3.88 (3.82-4.97) M/mcL Hgb 12.4 (11.5-15.4) g/dL Hct 35.8 (35.3-44.9) % MCV 92.3 (83.0-100.0) fL MCH 32.0 (28.0-33.3) pg MCHC 34.6 (31.6-35.5) g/dL RDW 13.2 (11.5-14.5) % Plt Count 237 (140-400) K/mcL MPV 9.7 (9.4-12.4) fL Immature Gran % 0.6 (0-4) % Seg Neutrophils % 79.6 % Lymphocytes % 11.9 % Monocytes % 6.5 % Eosinophils % 1.0 % Basophils % 0.4 % Neutrophils # 7.8 (1.6-8.9) K/mcL Lymphocytes # 1.2 (0.6-4.6) K/mcL Monocytes # 0.6 (0.0-1.3) K/mcL Eosinophils # 0.1 (0.0-0.6) K/mcL Basophils # 0.0 (0.0-0.2) K/mcL Sodium (136-145) mEq/L Potassium (3.5-5.1) mEq/L Chloride (98-107) mEq/L Carbon Dioxide (23-29) mEq/L BUN (8-23) mg/dL Creatinine (0.60-1.20) mg/dL Est GFR ( Amer) (> 60) Est GFR (Non-Af Amer) (> 60) BUN/Creatinine Ratio (6-26) Glucose (70-105) mg/dL Calculated Osmolality (280-300) Lactic Acid 1.0 (0.5-2.2) mmol/L Calcium (8.6-10.3) mg/dL Magnesium (1.6-2.6) mg/dL Total Bilirubin (0.3-1.0) mg/dL AST (13-39) Units/L ALT (7-52) Units/L Alkaline Phosphatase (34-104) Units/L Troponin I (< 0.04) ng/mL Serum Total Protein (6.4-8.9) g/dL Albumin (3.5-5.7) g/dL Globulin (2.4-3.5) g/dL Albumin/Globulin Ratio (1.1-2.2) Lipase (11-82) Units/L Urine Color Yellow (Yellow) Urine Clarity Clear (Clear) Urine pH 6.5 (5.0-8.0) pH Units Ur Specific [place] 1.016 (1.010-1.025) Urine Protein Negative (Neg-Trace) mg/dL Urine Glucose (UA) Normal (Normal) mg/dL Urine Ketones 80 H (Negative) mg/dL Urine Blood Moderate H (Negative) Urine Nitrite Negative (Negative) Urine Bilirubin Negative (Negative) Urine Urobilinogen Normal (Normal) mg/dL Ur Leukocyte Esterase Small H (Negative) Urine Microscopic RBC 0-3 (0-3) per hpf Urine Microscopic WBC 5-15 H (0-3) per hpf Ur Squamous Epith Cells Many H (None-Few) per lpf Urine Bacteria None Seen (None-Few) per hpf Hyaline Casts None Seen (None-Few) per lpf Ur Culture Indicated? NO. A (NO) 12/14/17 Range/Units 11:37 WBC (4.3-11.1) K/mcL RBC (3.82-4.97) M/mcL Hgb (11.5-15.4) g/dL Hct (35.3-44.9) % MCV (83.0-100.0) fL MCH (28.0-33.3) pg MCHC (31.6-35.5) g/dL RDW (11.5-14.5) % Plt Count (140-400) K/mcL MPV (9.4-12.4) fL Immature Gran % (0-4) % Seg Neutrophils % % Lymphocytes % % Monocytes % % Eosinophils % % Basophils % % Neutrophils # (1.6-8.9) K/mcL Lymphocytes # (0.6-4.6) K/mcL Monocytes # (0.0-1.3) K/mcL Eosinophils # (0.0-0.6) K/mcL Basophils # (0.0-0.2) K/mcL Sodium 137 (136-145) mEq/L Potassium 3.2 L (3.5-5.1) mEq/L Chloride 105 (98-107) mEq/L Carbon Dioxide 22 L (23-29) mEq/L BUN 2 L (8-23) mg/dL Creatinine 0.55 L (0.60-1.20) mg/dL Est GFR ( Amer) > 60 (> 60) Est GFR (Non-Af Amer) > 60 (> 60) BUN/Creatinine Ratio 4 L (6-26) Glucose 96 (70-105) mg/dL Calculated Osmolality 280 (280-300) Lactic Acid (0.5-2.2) mmol/L Calcium 9.3 (8.6-10.3) mg/dL Magnesium 1.8 (1.6-2.6) mg/dL Total Bilirubin 0.7 (0.3-1.0) mg/dL AST 23 (13-39) Units/L ALT 14 (7-52) Units/L Alkaline Phosphatase 105 H (34-104) Units/L Troponin I < 0.03 (< 0.04) ng/mL Serum Total Protein 6.7 (6.4-8.9) g/dL Albumin 3.7 (3.5-5.7) g/dL Globulin 3.0 (2.4-3.5) g/dL Albumin/Globulin Ratio 1.2 (1.1-2.2) Lipase 339 H (11-82) Units/L Urine Color (Yellow) Urine Clarity (Clear) Urine pH (5.0-8.0) pH Units Ur Specific [place] (1.010-1.025) Urine Protein (Neg-Trace) mg/dL Urine Glucose (UA) (Normal) mg/dL Urine Ketones (Negative) mg/dL Urine Blood (Negative) Urine Nitrite (Negative) Urine Bilirubin (Negative) Urine Urobilinogen (Normal) mg/dL Ur Leukocyte Esterase (Negative) Urine Microscopic RBC (0-3) per hpf Urine Microscopic WBC (0-3) per hpf Ur Squamous Epith Cells (None-Few) per lpf Urine Bacteria (None-Few) per hpf Hyaline Casts (None-Few) per lpf Ur Culture Indicated? (NO) Attestation Statement - Attestation Attestation: I examined this patient and my medical decision-making was reviewed with the Resident Physician. I agree with the documented findings, disposition and treatment plan as described except to the extent set forth below. 72 year old female presents to the ED with complaint of worening pancreatitis symptoms after discharge yestrday in aiddition to fatigue. It appear that she has pneumonia secondary to ateleectasis likely HAP. We will admit ot medicine with HAP therapy and NPO with pain meds. stable and non toxic appearing
[2017-12-14] MEDS ORDERED: OXYCODONE Oral CONC 10 MG/0.5 ML ORAL.SYG SL PRN (15:26)
[2017-12-14] MEDS ORDERED: Ondansetron 4 MG/2 ML VIAL IVP PRN (15:26)
[2017-12-14] MEDS ORDERED: Naloxone 0.4 MG/ML INJ IVP PRN ×2 (15:26)
--- NOTE | 2017-12-14 15:40 | Internal Med History&Physical ---
Date of Encounter: 12/14/17 Time of Encounter: 15:34 Internal Medicine - H&P: HPI Chief complaint: Abdominal pain Admitted From: Home Plans for Post Hospital Care: Home History of present illness: Ms. Mckinney is a 72 year old female with medical history of hypertension, hyperlipidemia, chronic pancreatitis was recently discharged from this facility 12/13 after being managed for acute on chronic pancreatitis. She had evidence of pancreatitis as well as a new left adnexal known to and stated that she was on a regular diet prior to discharge. However, this morning she woke up with severe abdominal pain which was generalized and worse with movement and worse with deep breaths. She denies any alcohol intake since being discharged. She denies fever or chills. She denies nausea, vomiting. She denies chest pain or cough, she denies shortness of breath, she denies leg swelling or ankle edema. She has no neurologic or genitourinary symptoms. Workup in the ER showed a normal white count, normal vital signs, hypokalemia potassium of 3.2, lipase 339 compared to 285 upon discharge yesterday, urine analysis with moderate hematuria Imaging reviewed and shows new small bilateral pleural effusions right greater than left, no infiltrates, few atelectasis, stable pancreatic pseudocyst, worsening of patient's pancreatitis compared to abdomen CAT scan done in previous admission She also has in addition new moderate ascites, right and left ureteral stranding stable right adrenal nodule. The liver appeared stable in appearance and portal venous system opacified unremarkably. The emergency room team started to treat the patient for hospital-acquired pneumonia based on chest x-ray findings and presented for admission. At the time of review, the patient had received fentanyl and did not longer had abdominal pain, she also does not have any cough or shortness of breath, and CAT scan rules out any infiltrates. At this time patient will be placed on observation for management of chronic smoldering pancreatitis, rule out spontaneous bacterial peritonitis. Past Med Surg Social Fam HX - Past Medical History Medical history: hyperlipidemia, hypertension Additional medical history: sleep apnea, goiter, pancreatitis Psychiatric history: no psych history - Past Surgical History Surgical History: appendectomy, cholecystectomy Additional surgical history: kidney repair right, tubal, - Social History Smoking Status: Current every day smoker Smokeless Tobacco Status: No Alcohol use: heavy Drug use: none - Family History Mother Hx Family Cancer: Yes (Breast cancer) Father Living Status: Hx Family Cardiac Disorders: Yes (Heart disease) Internal Medicine - H&P: Meds Aspirin [Lo-Dose Aspirin EC] 81 mg PO QAM 08/01/17 [History] Levothyroxine [Synthroid] 75 mcg PO QAM 08/01/17 [History] Lisinopril [Zestril] 10 mg PO QAM 08/01/17 [History] Naproxen Sodium [Aleve] 220 - 440 mg PO Q12H PRN 08/01/17 [History] Potassium Chloride Elixir [Potassium Chloride] 10 meq PO DAILY 08/01/17 [History] Pravastatin Sodium 10 mg PO HS 08/01/17 [History] Allergy/AdvReac Type Severity Reaction Status Date / Time No Known Allergies Allergy Verified 12/14/17 13:14 All Systems PM: A 10-system review of systems was performed and is negative for pertinent findings except as documented above in the HPI. - Constitutional Constitutional: no chills, no fever(s), no night sweats - EENT Eyes: no change in vision, no discharge, no pain, no photophobia Ears: no ear discharge, no ear pain, no tinnitus Nose, mouth and throat: no dysphagia, no nasal discharge, no neck pain, no sore throat - Cardiovascular Cardiovascular ROS IM: no chest pain, no diaphoresis, no dyspnea, no lightheadedness, no palpitations, no syncope - Respiratory Respiratory: no cough, no dyspnea, no wheezing, no excessive phlegm production - Gastrointestinal Gastrointestinal: abdominal pain, no diarrhea, no hematemesis, no hematochezia, no melena, no nausea, no vomiting - Genitourinary Genitourinary: no change in urinary stream, no dysuria, no flank pain, no hematuria - Musculoskeletal Musculoskeletal ROS IM: no numbness, no tingling - Integumentary Integumentary IM: no rash, no unusual bruising - Neurological Neurological ROS: no confusion, no convulsions, no focal weakness, no numbness, no tingling, no tremor(s) - Hematologic/Lymphatic Hematologic/Lymphatic: no easy bruising - Constitutional Vitals: Temp Pulse Resp BP Pulse Ox 98.4 F 84 18 148/72 96 12/14/17 14:32 12/14/17 14:32 12/14/17 14:32 12/14/17 14:32 12/14/17 14:32 General appearance: Present: A&O X 3 Exam: General: pleasant, without distress HEENT: Head atraumatic, normocephalic, EOMI, PERRL, Moist Mucous Membranes, CVS: RRR, S1, s2 normal, No MRG. no pedal edema. RS: CTAB, No adventitious lung sounds Abdomen: Soft non-tender(patient had received Dilaudid prior to evaluation0, non-distended positive bowel sounds, absent hepatomegaly Skin: warm and dry, absent rash, absent open wounds and nodules Neuro: Cranial nerves II through XII intact, alert oriented 3, No focal signs Psych: good insight and judgment, Internal Med - H&P Results - Labs CBC & Chem 7: 12/14/17 11:37 12/14/17 11:37 Labs: Short CBC 12/14/17 Range/Units 11:37 WBC 9.8 (4.3-11.1) K/mcL Hgb 12.4 (11.5-15.4) g/dL Hct 35.8 (35.3-44.9) % Plt Count 237 (140-400) K/mcL Neutrophils # 7.8 (1.6-8.9) K/mcL BMP 12/14/17 11:37 Sodium 137 Potassium 3.2 L Chloride 105 Carbon Dioxide 22 L BUN 2 L Creatinine 0.55 L Glucose 96 Calcium 9.3 Cardiac Enzymes 12/14/17 Range/Units 11:37 Troponin I < 0.03 (< 0.04) ng/mL Liver Function 12/14/17 Range/Units 11:37 Total Bilirubin 0.7 (0.3-1.0) mg/dL AST 23 (13-39) Units/L ALT 14 (7-52) Units/L Alkaline Phosphatase 105 H (34-104) Units/L Albumin 3.7 (3.5-5.7) g/dL Urine 12/14/17 Range/Units 11:11 Urine Color Yellow (Yellow) Urine Clarity Clear (Clear) Urine pH 6.5 (5.0-8.0) pH Units Ur Specific [place] 1.016 (1.010-1.025) Urine Protein Negative (Neg-Trace) mg/dL Urine Glucose (UA) Normal (Normal) mg/dL - Impressions ITS Impressions Abdomen/Pelvis CT 12/14/17 11:11 IMPRESSION: Progression of inflammatory changes along the proximal portion of the pancreas with significant progression of inflammatory change involving the adjacent distal stomach and duodenum. Inflammatory changes are also noted of the common duct. Findings are likely reactive in nature from worsening pancreatitis. Bilateral pleural and parenchymal changes which have increased from the comparison. No significant change in cystic lesion within the head of the pancreas. Moderate amount of ascites which is new from the comparison. No significant change in left adnexal lesion. D/ / 12/14/2017 13:37:36 Krzysztof Campos MD / leandrartlois Interpreting Provider: Krzysztof aCmpos MD Chest X-Ray 12/14/17 11:11 IMPRESSION: Bibasilar opacification with small effusions, left greater than right, suggesting possible pneumonia. D/ / Joel Vigil MD / Joel Vigil MD Interpreting Provider: Joel Vigil MD - Assessment and plan (1) SBP (spontaneous bacterial peritonitis) Current Visit: Yes Status: Acute Assessment and plan: Suspected Due to patient's presentation of abdominal pain worse with breathing and movement She has new moderate ascites on CT scan No gall bladder or liver uSS in this admission, but patient may have cirrhosis from chronic alcohol use Will give Cefotaxime 2g q8h empirically for SBP IR consult for USS guided diagnostic paracentensis a.m Continue to monitor (2) Pancreatitis Current Visit: Yes Status: Acute Assessment and plan: Patient was managed for acute pancreatitis up until She represented with abdominal pain, worse on movement, she has no other symptoms She has no nausea or vomiting Prior to d/c on 12/13 lipase was 285 Lipase this a.m is 339 CT scan shows significant increase of inflammatory changes involving the distal stomach and proximal duodenum as well as enhancement of the common bile duct Place NPO, except medications Cause is likely due to prior alcohol, however with inflammation spreading to the level of the stomach and, and, patient may have new etiology TG from last admission on 12/03 185 Will order repeat Lipid panel Patient may have ice chips, no IVF hydration, due to new effusions and ascites, Consult gastroenterology Continue to monitor Qualifiers: Chronicity: acute Pancreatitis type: alcohol induced Acute pancreatitis complication: no infection or necrosis Qualified Code(s): K85.20 - Alcohol induced acute pancreatitis without necrosis or infection (3) Alcohol abuse Current Visit: Yes Status: Chronic Assessment and plan: Patient reports no alcohol intake since discharge Continue to monitor Alcohol level not checked (4) Hyperlipidemia Current Visit: Yes Status: Chronic Assessment and plan: Continue home dose of pravachol Qualifiers: Hyperlipidemia type: unspecified Qualified Code(s): E78.5 - Hyperlipidemia, unspecified (5) Hypokalemia Current Visit: Yes Status: Acute Assessment and plan: Replaced po by ER (6) Abnormal urinalysis Current Visit: Yes Status: Acute Assessment and plan: Patient with microscopic hematuria Obtain PTINR Send urine culture , as CT scan showed some ureteral stranding - Time Spent With Patient Total time spent is greater than 50% in coordination of care (as documented) at patient's floor/unit and/or counseling patient:
[2017-12-14 16:16] LABS: INR 1.1; Prothrombin Time 12.2 Seconds (9.4-12.1)
[2017-12-14 16:28] LABS: Chol/HDL Ratio 4.6 (0-4.9)
[2017-12-14] MEDS: OXYCODONE Oral CONC 10 MG/0.5 ML ORAL.SYG SL PRN (19:49)
[2017-12-14] MEDS ORDERED: cefTRIAXone 1,000 MG in Water for inj. (sterile) 20 ML 10 ML IVP SCH (20:00)
[2017-12-15] MEDS: OXYCODONE Oral CONC 10 MG/0.5 ML ORAL.SYG SL PRN ×4 (00:11→18:23)
[2017-12-15 05:40] LABS: Basophils # 0.1 K/mcL (0.0-0.2); Basophils % 0.5 %; Eosinophils # 0.2 K/mcL (0.0-0.6); Eosinophils % 1.6 %; Hematocrit 31.7 % (35.3-44.9); Immature Granulocytes % 0.5 % (0-4); Lymphocytes # 1.2 K/mcL (0.6-4.6); Lymphocytes % 11.9 %; Mean Corpuscular HGB Conc 34.1 g/dL (31.6-35.5); Mean Corpuscular Hemoglobin 32.1 pg (28.0-33.3); Mean Corpuscular Volume 94.3 fL (83.0-100.0); Mean Platelet Volume 9.8 fL (9.4-12.4); Monocytes # 0.8 K/mcL (0.0-1.3); Monocytes % 7.7 %; Neutrophils # 7.8 K/mcL (1.6-8.9); Platelet Count 215 K/mcL (140-400); Red Blood Count 3.36 M/mcL (3.82-4.97); Red Cell Distribution Width 13.4 % (11.5-14.5); Segmented Neutrophils % 77.8 %
[2017-12-15 05:49] LABS: Hemoglobin 10.8 g/dL (11.5-15.4)
[2017-12-15 06:05] LABS: Alanine Aminotransferase 11 Units/L (7-52); Albumin/Globulin Ratio 1.3 (1.1-2.2); Alkaline Phosphatase 82 Units/L (34-104); Aspartate Amino Transferase 20 Units/L (13-39); BUN/Creatinine Ratio 7 (6-26); Bilirubin,Total 0.4 mg/dL (0.3-1.0); Blood Urea Nitrogen 4 mg/dL (8-23); Calcium 8.7 mg/dL (8.6-10.3); Carbon Dioxide 20 mEq/L (23-29); Chloride 107 mEq/L (98-107); Chol/HDL Ratio 4.3 (0-4.9); Cholesterol 139 mg/dL (< 200); Globulin 2.4 g/dL (2.4-3.5); Glucose 78 mg/dL (70-105); HDL Cholesterol 32 mg/dL (40-59); LDL Cholesterol,Calculated 87 mg/dL (0-99); Osmolality,Calculated 282 (280-300); Potassium 3.5 mEq/L (3.5-5.1); Sodium 138 mEq/L (136-145); Total Protein 5.4 g/dL (6.4-8.9); Triglycerides 98 mg/dL (< 150); eGFR For Non-African Americans > 60 (> 60)
[2017-12-15] MEDS: Aspirin Enteric Coated 81 MG Tablet PO SCH (07:33)
[2017-12-15 08:24] LABS: Lipase 187 Units/L (11-82)
[2017-12-15 09:21] LABS: Ethanol < 10 mg/dL (Less than 10)
[2017-12-15] MEDS: cefTRIAXone 2,000 MG in Water for inj. (sterile) 20 ML 20 ML IVP SCH (10:28)
--- NOTE | 2017-12-15 10:46 | Internal Med Progress Note ---
Hospitalist Progress Note - Encounter Date of Encounter: 12/15/17 Time of Encounter: 10:42 - Subjective Interval History: Seen and examined at bedside with daughter Per IR,ascitic fluid too small to be drained She reports remarkable improvemen,, we will start clear liquid diet Lipase is downtrending GI evaluation is pending - Exam Vitals: Temp Pulse Resp BP Pulse Ox 99.3 F 79 16 134/59 91 12/15/17 07:01 12/15/17 07:01 12/15/17 07:01 12/15/17 07:01 12/15/17 07:01 Exam: General: pleasant, without distress HEENT: Head atraumatic, normocephalic, EOMI, PERRL, Moist Mucous Membranes, CVS: RRR, S1, s2 normal, No MRG. no pedal edema. RS: CTAB, No adventitious lung sounds Abdomen: Soft non-tender, non-distended positive bowel sounds, no palpably enlarged organs Skin: warm and dry, absent rash, absent open wounds and nodules Neuro: Cranial nerves II through XII intact, alert oriented 3, No focal signs Psych: good insight and judgment, normal affect - Assessment and Plan (1) SBP (spontaneous bacterial peritonitis) Current Visit: Yes Status: Acute Assessment and Plan: Suspected Due to patient's presentation of abdominal pain worse with breathing and movement She has new moderate ascites on CT scan Cefotaxime was unavailable in the hospital, started on ceftriaxone Day 2 , continue same Per IR, ascites too small to be drained LFts are WNL since admission Continue to monitor (2) Pancreatitis Current Visit: Yes Status: Acute Assessment and Plan: Patient was managed for acute pancreatitis up until ON 12/14, She represented with abdominal pain, worse on movement, she has no other symptoms She has no nausea or vomiting Prior to d/c on 12/13 lipase was 285 Lipase 12/14 was 339 Lipase this a.m 187 CT scan shows significant increase of inflammatory changes involving the distal stomach and proximal duodenum as well as enhancement of the common bile duct TG WNL She has no gall bladder and LFTs are WNL Continue current management GI eval is pending Start clear liquids diet (3) Alcohol abuse Current Visit: Yes Status: Chronic Assessment and Plan: Patient reports no alcohol intake since discharge Continue to monitor Alcohol level not checked (4) Hyperlipidemia Current Visit: Yes Status: Chronic Assessment and Plan: Continue home dose of pravachol (5) Hypokalemia Current Visit: Yes Status: Resolved Assessment and Plan: Replaced po by ER (6) Abnormal urinalysis Current Visit: Yes Status: Acute Assessment and Plan: Patient with microscopic hematuria INR 1.1 Follow urine culture - Time Spent with Patient Total time spent is greater than 50% in coordination of care (as documented) at patient's floor/unit and/or counseling patient: Plan of Care Discussed with: patient Internal Medicine: Result - Labs CBC & Chem 7: 12/15/17 05:11 12/15/17 05:11 Labs: Short CBC 12/14/17 12/15/17 Range/Units 11:37 05:11 WBC 9.8 10.0 (4.3-11.1) K/mcL Hgb 12.4 10.8 L D (11.5-15.4) g/dL Hct 35.8 31.7 L (35.3-44.9) % Plt Count 237 215 (140-400) K/mcL Neutrophils # 7.8 7.8 (1.6-8.9) K/mcL BMP 12/14/17 12/15/17 11:37 05:11 Sodium 137 138 Potassium 3.2 L 3.5 Chloride 105 107 Carbon Dioxide 22 L 20 L BUN 2 L 4 L Creatinine 0.55 L 0.59 L Glucose 96 78 Calcium 9.3 8.7 Cardiac Enzymes 12/14/17 Range/Units 11:37 Troponin I < 0.03 (< 0.04) ng/mL Liver Function 12/14/17 12/14/17 12/15/17 Range/Units 11:37 15:58 05:11 Total Bilirubin 0.7 0.4 (0.3-1.0) mg/dL AST 23 20 (13-39) Units/L ALT 14 11 (7-52) Units/L Alkaline Phosphatase 105 H 82 (34-104) Units/L Albumin 3.7 3.3 L 3.0 L (3.5-5.7) g/dL Urine 12/14/17 Range/Units 11:11 Urine Color Yellow (Yellow) Urine Clarity Clear (Clear) Urine pH 6.5 (5.0-8.0) pH Units Ur Specific [place] 1.016 (1.010-1.025) Urine Protein Negative (Neg-Trace) mg/dL Urine Glucose (UA) Normal (Normal) mg/dL - ABG Interpretation ABG results: PT/INR, D-dimer PT 12.2 Seconds (9.4-12.1) H 12/14/17 15:58 - Impressions Impressions Abdomen/Pelvis CT 12/14/17 11:11 IMPRESSION: Progression of inflammatory changes along the proximal portion of the pancreas with significant progression of inflammatory change involving the adjacent distal stomach and duodenum. Inflammatory changes are also noted of the common duct. Findings are likely reactive in nature from worsening pancreatitis. Bilateral pleural and parenchymal changes which have increased from the comparison. No significant change in cystic lesion within the head of the pancreas. Moderate amount of ascites which is new from the comparison. No significant change in left adnexal lesion. D/ / 12/14/2017 13:37:36 Krzysztof Campos MD / leela Interpreting Provider: Krzysztof Campos MD Chest X-Ray 12/14/17 11:11 IMPRESSION: Bibasilar opacification with small effusions, left greater than right, suggesting possible pneumonia. D/ / Joel Vigil MD / Joel Vigil MD Interpreting Provider: Joel Vigil MD Consult Discharge Plan - Plan Referrals: Cristiana Burr, FONDANT COOKER [Primary Care Provider] - (2) Pancreatitis Qualifiers: Chronicity: acute Pancreatitis type: alcohol induced Acute pancreatitis complication: no infection or necrosis Qualified Code(s): K85.20 - Alcohol induced acute pancreatitis without necrosis or infection (4) Hyperlipidemia Qualifiers: Hyperlipidemia type: unspecified Qualified Code(s): E78.5 - Hyperlipidemia, unspecified
--- NOTE | 2017-12-15 13:24 | Gastroenterology Consult Note ---
<Ramon Woodard Renita - Last Filed: 12/15/17 13:21> Date of Encounter: 12/15/17 Time of Encounter: : - Assessment and plan (1) Pancreatitis Current Visit: Yes Status: Acute Assessment and plan: Lipase >1800 on 12/10, 285 on 12/13, 339 on admission and [address] A/P 12/14 shows progression of inflammatory changes along the proximal portion of the pancreas with significant progression of inflammatory change involving the adjacent distal stomach and duodenum. Inflammatory changes are also noted of the common duct. Findings are likely reactive in nature from worsening pancreatitis. Moderate amount of ascites which is new. IR was unable to drain the ascites due to small amount. Continue clear liquid diet. Slowly advance diet as tolerated. Continue anti-emeatics and pain control. Alcohol level was not checked on admission, but was negative this morning. Qualifiers: Chronicity: acute Pancreatitis type: alcohol induced Acute pancreatitis complication: no infection or necrosis Qualified Code(s): K85.20 - Alcohol induced acute pancreatitis without necrosis or infection (2) Alcohol abuse Current Visit: Yes Status: Chronic - Time Spent With Patient Total time spent is greater than 50% in coordination of care (as documented) at patient's floor/unit and/or counseling patient: GI History of Present Illness - Data of Consult Patient: known to practice within the last 3 years Consult date: 12/15/17 Requesting Physician: Braydon Perea MD - Consult Narrative Reason for consult: Pancreatitis History of present illness: Ms. Mckinney is a 72 year old female with PMHx of HTN, HLD, and chronic pancreatitis who was recently discharged from this facility 12/13 after being managed for acute on chronic pancreatitis. She was on regular dieat prior to discharge and was tolerating it well. She woke up 12/14 with severe abdominal pain which was generalized and worse with movement and worse with deep breaths. She denies any alcohol intake since being discharged. She denies fever, chills, nausea, vomiting. CT A/P 12/14 shows progression of inflammatory changes along the proximal portion of the pancreas with significant progression of inflammatory change involving the adjacent distal stomach and duodenum. Inflammatory changes are also noted of the common duct. Findings are likely reactive in nature from worsening pancreatitis. Moderate amount of ascites which is new. Procedures: Colonoscopy 02/01/2015 Dr. Gul: Diverticulosis NSAIDs: Aleve, ASA Anticoagulation: None Past Med Surg Social Fam HX - Past Medical History Medical history: hyperlipidemia, hypertension Additional medical history: goiter, pancreatitis Psychiatric history: no psych history - Past Surgical History Surgical History: appendectomy, cholecystectomy Additional surgical history: kidney repair right, tubal, - Social History Smoking Status: Current every day smoker Packs per day: 1/2 Smokeless Tobacco Status: No Alcohol use: heavy Drug use: none - Family History Father Living Status: Hx Family Cardiac Disorders: Yes (Heart disease) Mother Hx Family Cancer: Yes (Breast cancer) - Gastrointestinal Gastrointestinal: Present: as per HPI - Constitutional Constitutional: as per HPI - EENT Eyes: as per HPI Ears: Present: as per HPI Nose, mouth and throat: Present: as per HPI - Cardiovascular Cardiovascular ROS: Present: as per HPI - Respiratory Respiratory IM: Present: as per HPI - Genitourinary Genitourinary: Absent: change in color, Urinary frequency - Neurological ROS Neurological GI: Present: as per HPI - Hematologic/Lymphatic Hematologic/Lymphatic pediatric: Present: as per HPI - Musculoskeletal Musculoskeletal ROS GI: Present: as per HPI - Integumentary Integumentary GI: Present: as per HPI - Psychiatric ROS Psychiatric GI: Present: as per HPI - Endocrine Endocrine IM: Present: as per HPI - Constitutional Vitals: Temp Pulse Resp BP Pulse Ox 99.4 F 88 16 131/62 92 12/15/17 11:17 12/15/17 11:17 12/15/17 11:17 12/15/17 11:17 12/15/17 11:17 General appearance: Present: cooperative, A&O X 3, no acute distress, answers questions appropriately - Head Head exam: Present: atraumatic, normocephalic - Eye Eye exam: Present: normal appearance, sclera anicteric - ENT ENT exam: Present: mucous membranes dry - Neck Neck exam general surgery: Present: normal inspection, trachea midline - Respiratory Respiratory exam: Present: CTAB. Absent: rales, rhonchi, wheezes - Cardiovascular Cardiovascular exam: Present: RRR, +S1, +S2 - GI/Abdominal GI/Abdominal exam: Present: soft, no peritoneal signs. Absent: distended, firm, guarding, tenderness - Rectal Rectal exam: Present: deferred - Extremities Exam Extremities exam: Present: warm - Neurological Exam Neurological exam: Present: no focal deficits - Psychiatric Psychiatric exam: Present: normal affect, normal mood - Skin Skin exam: Present: dry, intact, normal color, warm Results - Labs CBC & Chem 7: 12/15/17 05:11 12/15/17 05:11 Labs: Last Result Calcium 8.7 mg/dL (8.6-10.3) 12/15/17 05:11 Troponin I < 0.03 ng/mL (< 0.04) 12/14/17 11:37 Triglycerides 98 mg/dL (< 150) 12/15/17 05:11 Entire Visit Hgb 10.8 g/dL (11.5-15.4) L D 12/15/17 05:11 Hct 31.7 % (35.3-44.9) L 12/15/17 05:11 PT 12.2 Seconds (9.4-12.1) H 12/14/17 15:58 Total Bilirubin 0.4 mg/dL (0.3-1.0) 12/15/17 05:11 AST 20 Units/L (13-39) 12/15/17 05:11 ALT 11 Units/L (7-52) 12/15/17 05:11 Lipase 187 Units/L (11-82) H 12/15/17 05:11 - ABG ABG results: PT/INR, D-dimer PT 12.2 Seconds (9.4-12.1) H 12/14/17 15:58 - Impressions Impressions Abdomen/Pelvis CT 12/14/17 11:11 IMPRESSION: Progression of inflammatory changes along the proximal portion of the pancreas with significant progression of inflammatory change involving the adjacent distal stomach and duodenum. Inflammatory changes are also noted of the common duct. Findings are likely reactive in nature from worsening pancreatitis. Bilateral pleural and parenchymal changes which have increased from the comparison. No significant change in cystic lesion within the head of the pancreas. Moderate amount of ascites which is new from the comparison. No significant change in left adnexal lesion. D/ / 12/14/2017 13:37:36 Krzysztof Campos MD / leela Interpreting Provider: Krzysztof Campos MD Abdomen/Pelvis/Transvag US 12/15/17 06:44 IMPRESSION: Only a tiny amount of ascites seen though too small to safely access. D/ / Joel Matthews MD / Joel Matthews MD Interpreting Provider: Joel Matthews MD Consult Discharge Plan - Plan Referrals: aH Sinha MD [Partnered Physician] - 12/22/17 2:30 pm (Please follow up as schedule...) Cristiana Burr, ENGINEERING SECRETARY [Primary Care Provider] - (Patient has to call an appoint ment per Office) <Mehdi Ramires - Last Filed: 12/19/17 10:30> - Time Spent With Patient Total time spent is greater than 50% in coordination of care (as documented) at patient's floor/unit and/or counseling patient: GI History of Present Illness - Data of Consult Requesting Physician: Braydon Perea MD - Consult Narrative History of present illness: Ms. Mckinney is a 72 year old female - Constitutional Vitals: Temp Pulse Resp BP Pulse Ox 98.8 F 73 18 160/71 91 12/19/17 07:04 12/19/17 07:04 12/19/17 07:04 12/19/17 07:04 12/19/17 07:04 Results - Labs CBC & Chem 7: 12/18/17 10:07 12/19/17 04:18 Labs: Last Result Calcium 8.6 mg/dL (8.6-10.3) 12/19/17 04:18 Troponin I < 0.03 ng/mL (< 0.04) 12/14/17 11:37 Triglycerides 98 mg/dL (< 150) 12/15/17 05:11 Entire Visit Hgb 12.9 g/dL (11.5-15.4) D 12/18/17 10:07 Hct 39.0 % (35.3-44.9) 12/18/17 10:07 PT 12.2 Seconds (9.4-12.1) H 12/14/17 15:58 Total Bilirubin 0.4 mg/dL (0.3-1.0) 12/15/17 05:11 AST 20 Units/L (13-39) 12/15/17 05:11 ALT 11 Units/L (7-52) 12/15/17 05:11 Lipase 4 Units/L (11-82) L 12/19/17 04:18 - ABG ABG results: PT/INR, D-dimer PT 12.2 Seconds (9.4-12.1) H 12/14/17 15:58 - Attending Attestation Acute on chronic pancreatitis. First visit for me. Will review her old records and [facility]'s. Plan EGD I examined this patient and my medical decision-making was reviewed with the Resident Physician. I agree with the documented findings, disposition and treatment plan as described except to the extent set forth below.
[2017-12-16] MEDS: *HR* Enoxaparin 40 MG/0.4 ML SYRINGE SQ SCH (05:51)
[2017-12-16] MEDS: Aspirin Enteric Coated 81 MG Tablet PO SCH (08:38)
[2017-12-16] MEDS: cefTRIAXone 2,000 MG in Water for inj. (sterile) 20 ML 20 ML IVP SCH (08:38)
[2017-12-16] MEDS: OXYCODONE Oral CONC 10 MG/0.5 ML ORAL.SYG SL PRN ×4 (10:48→23:24)
--- NOTE | 2017-12-16 13:13 | Internal Med Progress Note ---
Hospitalist Progress Note - Encounter Date of Encounter: 12/16/17 Time of Encounter: 09:00 - Subjective Interval History: Still c/o epigastric area pain which radiated to back. Lower abd pain has improved. - Exam Vitals: Temp Pulse Resp BP Pulse Ox 98.7 F 72 16 166/74 93 12/16/17 10:31 12/16/17 10:31 12/16/17 10:31 12/16/17 10:31 12/16/17 10:31 Exam: General: pleasant, without distress HEENT: Head atraumatic, normocephalic, EOMI, PERRL, Moist Mucous Membranes, CVS: RRR, S1, s2 normal, No MRG. no pedal edema. RS: CTAB, No adventitious lung sounds Abdomen: Mild tenderness on epigastric area, w/o rebound. BS normal. Skin: warm and dry, absent rash, absent open wounds and nodules Neuro: Cranial nerves II through XII intact, alert oriented 3, No focal signs Psych: good insight and judgment, normal affect - Assessment and Plan (1) Hypokalemia Current Visit: Yes Status: Resolved Assessment and Plan: Replaced po by ER (2) Pancreatitis Current Visit: Yes Status: Acute Assessment and Plan: Patient was managed for acute pancreatitis up until ON 12/14, She represented with abdominal pain, worse on movement, she has no other symptoms She has no nausea or vomiting Prior to d/c on 12/13 lipase was 285 Lipase 12/14 was 339 Lipase this a.m 187 CT scan shows significant increase of inflammatory changes involving the distal stomach and proximal duodenum as well as enhancement of the common bile duct TG WNL She has no gall bladder and LFTs are WNL Continue current management GI consult appreciated. Cont closely monitoring and advanced diet slowly. (3) Alcohol abuse Current Visit: Yes Status: Chronic Assessment and Plan: Patient reports no alcohol intake since discharge Continue to monitor Alcohol level not checked (4) Hyperlipidemia Current Visit: Yes Status: Chronic Assessment and Plan: Continue home dose of pravachol (5) SBP (spontaneous bacterial peritonitis) Current Visit: Yes Status: Acute Assessment and Plan: Suspected Due to patient's presentation of abdominal pain worse with breathing and movement She has new moderate ascites on CT scan Cefotaxime was unavailable in the hospital, started on ceftriaxone Day 3 , lower abd pain improved, will finish 5 days course Per IR, ascites too small to be drained LFts are WNL since admission Continue to monitor DVT Prophylaxis: Lovenox sc - Time Spent with Patient Total time spent is greater than 50% in coordination of care (as documented) at patient's floor/unit and/or counseling patient: 30 min 25 - 35 minutes Plan of Care Discussed with: patient Internal Medicine: Result - Labs CBC & Chem 7: 12/15/17 05:11 12/15/17 05:11 - ABG Interpretation ABG results: PT/INR, D-dimer PT 12.2 Seconds (9.4-12.1) H 12/14/17 15:58 Consult Discharge Plan - Plan Referrals: Ha Sinha MD [Partnered Physician] - 12/22/17 2:30 pm (Please follow up as schedule...) Cristiana Burr CNP [Primary Care Provider] - (Patient has to call an appoint ment per Office) (2) Pancreatitis Qualifiers: Chronicity: acute Pancreatitis type: alcohol induced Acute pancreatitis complication: no infection or necrosis Qualified Code(s): K85.20 - Alcohol induced acute pancreatitis without necrosis or infection (4) Hyperlipidemia Qualifiers: Hyperlipidemia type: unspecified Qualified Code(s): E78.5 - Hyperlipidemia, unspecified
[2017-12-17] MEDS: OXYCODONE Oral CONC 10 MG/0.5 ML ORAL.SYG SL PRN ×5 (03:39→23:13)
[2017-12-17 04:31] LABS: Basophils % 0.3 %; Eosinophils # 0.2 K/mcL (0.0-0.6); Eosinophils % 1.6 %; Hematocrit 31.7 % (35.3-44.9); Hemoglobin 10.7 g/dL (11.5-15.4); Immature Granulocytes % 0.6 % (0-4); Lymphocytes # 1.4 K/mcL (0.6-4.6); Lymphocytes % 13.1 %; Mean Corpuscular HGB Conc 33.8 g/dL (31.6-35.5); Mean Corpuscular Hemoglobin 31.8 pg (28.0-33.3); Mean Corpuscular Volume 94.1 fL (83.0-100.0); Mean Platelet Volume 9.8 fL (9.4-12.4); Monocytes # 0.8 K/mcL (0.0-1.3); Monocytes % 7.8 %; Neutrophils # 7.9 K/mcL (1.6-8.9); Platelet Count 259 K/mcL (140-400); Red Blood Count 3.37 M/mcL (3.82-4.97); Red Cell Distribution Width 13.2 % (11.5-14.5); Segmented Neutrophils % 76.6 %
[2017-12-17 04:50] LABS: BUN/Creatinine Ratio 5 (6-26); Blood Urea Nitrogen 3 mg/dL (8-23); Calcium 8.7 mg/dL (8.6-10.3); Carbon Dioxide 27 mEq/L (23-29); Chloride 104 mEq/L (98-107); Glucose 109 mg/dL (70-105); Lipase 449 Units/L (11-82); Osmolality,Calculated 283 (280-300); Potassium 3.1 mEq/L (3.5-5.1); Sodium 138 mEq/L (136-145); eGFR For Non-African Americans > 60 (> 60)
[2017-12-17] MEDS: *HR* Enoxaparin 40 MG/0.4 ML SYRINGE SQ SCH (05:34)
[2017-12-17] MEDS ORDERED: Potassium Chloride 40 MEQ, Lidocaine 1% 2 ML in D5% in Water 500 ML IVPB ONE (07:56)
[2017-12-17] MEDS: Aspirin Enteric Coated 81 MG Tablet PO SCH (10:08)
[2017-12-17] MEDS: cefTRIAXone 2,000 MG in Water for inj. (sterile) 20 ML 20 ML IVP SCH (10:09)
--- NOTE | 2017-12-17 12:35 | Internal Med Progress Note ---
Hospitalist Progress Note - Encounter Date of Encounter: 12/17/17 Time of Encounter: 09:00 - Subjective Interval History: Still c/o epigastric area pain which radiated to back, seems worse than yesterday. Lower abd pain has improved. - Exam Vitals: Temp Pulse Resp BP Pulse Ox 99.3 F 73 16 158/56 94 12/17/17 11:04 12/17/17 11:04 12/17/17 11:04 12/17/17 11:04 12/17/17 11:04 Exam: General: pleasant, without distress HEENT: Head atraumatic, normocephalic, EOMI, PERRL, Moist Mucous Membranes, CVS: RRR, S1, s2 normal, No MRG. no pedal edema. RS: CTAB, No adventitious lung sounds Abdomen: Mild to moderate tenderness on epigastric area, w/o rebound. BS normal. Skin: warm and dry, absent rash, absent open wounds and nodules Neuro: Cranial nerves II through XII intact, alert oriented 3, No focal signs Psych: good insight and judgment, normal affect - Assessment and Plan (1) Hypokalemia Current Visit: Yes Status: Resolved Assessment and Plan: Still low potassium will give supplement. (2) Pancreatitis Current Visit: Yes Status: Acute Assessment and Plan: Pt still has epigastric pain with mild increased lipase. Low fever noticed in yesterday evening. - Seem not tolerate diet, will restart NPO and IVF - US abd to r/o CBD stone. - Closely monitor pt. (3) Alcohol abuse Current Visit: Yes Status: Chronic Assessment and Plan: Patient reports no alcohol intake since discharge Continue to monitor Alcohol level < 10 No signs of withdraw (4) Hyperlipidemia Current Visit: Yes Status: Chronic Assessment and Plan: Continue home dose of pravachol (5) SBP (spontaneous bacterial peritonitis) Current Visit: Yes Status: Acute Assessment and Plan: Suspected Due to patient's presentation of abdominal pain worse with breathing and movement She has new moderate ascites on CT scan Cefotaxime was unavailable in the hospital, started on ceftriaxone Day 4 , lower abd pain improved, will finish 5 days course Per IR, ascites too small to be drained LFts are WNL since admission Continue to monitor DVT Prophylaxis: Lovenox sc - Time Spent with Patient Total time spent is greater than 50% in coordination of care (as documented) at patient's floor/unit and/or counseling patient: 30 min 25 - 35 minutes Plan of Care Discussed with: patient Internal Medicine: Result - Labs CBC & Chem 7: 12/17/17 04:02 12/17/17 04:02 Labs: Short CBC 12/17/17 Range/Units 04:02 WBC 10.3 (4.3-11.1) K/mcL Hgb 10.7 L (11.5-15.4) g/dL Hct 31.7 L (35.3-44.9) % Plt Count 259 (140-400) K/mcL Neutrophils # 7.9 (1.6-8.9) K/mcL BMP 12/17/17 04:02 Sodium 138 Potassium 3.1 L Chloride 104 Carbon Dioxide 27 BUN 3 L Creatinine 0.56 L Glucose 109 H Calcium 8.7 - ABG Interpretation ABG results: PT/INR, D-dimer PT 12.2 Seconds (9.4-12.1) H 12/14/17 15:58 Consult Discharge Plan - Plan Referrals: Ha Sinha MD [Partnered Physician] - 12/22/17 2:30 pm (Please follow up as schedule...) Cristiana Burr CNP [Primary Care Provider] - (Patient has to call an appoint ment per Office) (2) Pancreatitis Qualifiers: Chronicity: acute Pancreatitis type: alcohol induced Acute pancreatitis complication: no infection or necrosis Qualified Code(s): K85.20 - Alcohol in duced acute pancreatitis without necrosis or infection (4) Hyperlipidemia Qualifiers: Hyperlipidemia type: unspecified Qualified Code(s): E78.5 - Hyperlipidemia, unspecified
[2017-12-17] MEDS: 0.9 % Sodium Chloride 1,000 ML IVC SCH (14:42)
[2017-12-18] MEDS: 0.9 % Sodium Chloride 1,000 ML IVC SCH ×2 (01:28→18:14)
[2017-12-18] MEDS: OXYCODONE Oral CONC 10 MG/0.5 ML ORAL.SYG SL PRN ×4 (04:33→23:28)
[2017-12-18] MEDS: *HR* Enoxaparin 40 MG/0.4 ML SYRINGE SQ SCH (07:15)
[2017-12-18] MEDS: cefTRIAXone 2,000 MG in Water for inj. (sterile) 20 ML 20 ML IVP SCH (09:20)
[2017-12-18] MEDS: Aspirin Enteric Coated 81 MG Tablet PO SCH (09:21)
[2017-12-18 10:19] LABS: Basophils # 0.1 K/mcL (0.0-0.2); Basophils % 0.6 %; Eosinophils # 0.3 K/mcL (0.0-0.6); Eosinophils % 3.1 %; Immature Granulocytes % 0.4 % (0-4); Lymphocytes # 1.8 K/mcL (0.6-4.6); Lymphocytes % 21.9 %; Mean Corpuscular HGB Conc 33.1 g/dL (31.6-35.5); Mean Corpuscular Hemoglobin 31.5 pg (28.0-33.3); Mean Corpuscular Volume 95.4 fL (83.0-100.0); Mean Platelet Volume 9.7 fL (9.4-12.4); Monocytes # 0.5 K/mcL (0.0-1.3); Monocytes % 6.2 %; Neutrophils # 5.4 K/mcL (1.6-8.9); Platelet Count 308 K/mcL (140-400); Red Blood Count 4.09 M/mcL (3.82-4.97); Segmented Neutrophils % 67.8 %
[2017-12-18 10:26] LABS: Hemoglobin 12.9 g/dL (11.5-15.4)
[2017-12-18 10:39] LABS: BUN/Creatinine Ratio 8 (6-26); Blood Urea Nitrogen 4 mg/dL (8-23); Calcium 8.9 mg/dL (8.6-10.3); Carbon Dioxide 22 mEq/L (23-29); Chloride 105 mEq/L (98-107); Glucose 69 mg/dL (70-105); Lipase 18 Units/L (11-82); Magnesium 1.8 mg/dL (1.6-2.6); Osmolality,Calculated 285 (280-300); Potassium 3.3 mEq/L (3.5-5.1); Sodium 140 mEq/L (136-145); eGFR For Non-African Americans > 60 (> 60)
[2017-12-18] MEDS ORDERED: Potassium Chloride 40 MEQ, Lidocaine 1% 2 ML in D5% in Water 500 ML IVPB ONE (10:47)
--- NOTE | 2017-12-18 11:10 | Internal Med Progress Note ---
Hospitalist Progress Note - Encounter Date of Encounter: 12/18/17 Time of Encounter: 09:00 - Subjective Interval History: Epigastric area pain is much less on NPO. Feels better. Denies N/V. No fever overnight. - Exam Vitals: Temp Pulse Resp BP Pulse Ox 98.0 F 70 18 136/58 93 12/18/17 06:52 12/18/17 06:52 12/18/17 06:52 12/18/17 06:52 12/18/17 06:52 Exam: General: pleasant, without distress HEENT: Head atraumatic, normocephalic, EOMI, PERRL, Moist Mucous Membranes, CVS: RRR, S1, s2 normal, No MRG. no pedal edema. RS: CTAB, No adventitious lung sounds Abdomen: Soft, NT, BS normal. Skin: warm and dry, absent rash, absent open wounds and nodules Neuro: Cranial nerves II through XII intact, alert oriented 3, No focal signs Psych: good insight and judgment, normal affect - Assessment and Plan (1) Hypokalemia Current Visit: Yes Status: Resolved Assessment and Plan: Still low potassium will give supplement. Possibly due to poor intake. (2) Pancreatitis Current Visit: Yes Status: Acute Assessment and Plan: Recurrent pancreatitis, repeat US liver shows no CBD dilation. Pancreatitis is most likely due to alcoholism. - Lipase get down on NPO (18 today), will cont NPO for one more day, Cont IVF - Slowly advance diet tomorrow if pt remains abd pain free. (3) Alcohol abuse Current Visit: Yes Status: Chronic Assessment and Plan: Patient reports no alcohol intake since discharge Continue to monitor Alcohol level < 10 No signs of withdraw (4) Hyperlipidemia Current Visit: Yes Status: Chronic Assessment and Plan: Continue home dose of pravachol (5) SBP (spontaneous bacterial peritonitis) Current Visit: Yes Status: Acute Assessment and Plan: Finished 5 days abx. No Abx pain now. CT abd and US liver doesn't show significant cirrhosis. Ascites is minimal on an acute pancreatitis picture. Recommend pt cont f/u with GI after discharge. DVT Prophylaxis: Lovenox sc - Time Spent with Patient Total time spent is greater than 50% in coordination of care (as documented) at patient's floor/unit and/or counseling patient: 30 min 25 - 35 minutes Plan of Care Discussed with: patient Internal Medicine: Result - Labs CBC & Chem 7: 12/18/17 10:07 12/18/17 10:07 Labs: Short CBC 12/18/17 Range/Units 10:07 WBC 8.0 (4.3-11.1) K/mcL Hgb 12.9 D (11.5-15.4) g/dL Hct 39.0 (35.3-44.9) % Plt Count 308 (140-400) K/mcL Neutrophils # 5.4 (1.6-8.9) K/mcL BMP 12/18/17 10:07 Sodium 140 Potassium 3.3 L Chloride 105 Carbon Dioxide 22 L BUN 4 L Creatinine 0.48 L Glucose 69 L Calcium 8.9 - ABG Interpretation ABG results: PT/INR, D-dimer PT 12.2 Seconds (9.4-12.1) H 12/14/17 15:58 - Impressions Impressions Abdomen Ultrasound 12/17/17 15:00 IMPRESSION: Status post cholecystectomy with mild prominence of the extrahepatic biliary tree, likely physiologic in the post cholecystectomy state.. Normal to slight increase in hepatic echogenicity consistent with steatosis. D/ / Joel Vigil MD / Joel Vigil MD Interpreting Provider: Joel Vigil MD Consult Discharge Plan - Plan Referrals: Ha Sinha MD [Partnered Physician] - 12/22/17 2:30 pm (Please follow up as schedule...) Cristiana Burr, COMPACTING MACHINE OPERATOR/TENDER [Primary Care Provider] - (Patient has to call an appoint ment per Office) (2) Pancreatitis Qualifiers: Chronicity: acute Pancreatitis type: alcohol induced Acute pancreatitis complication: no infection or necrosis Qualified Code(s): K85.20 - Alcohol induced acute pancreatitis without necrosis or infection (4) Hyperlipidemia Qualifiers: Hyperlipidemia type: unspecified Qualified Code(s): E78.5 - Hyperlipidemia, unspecified
--- NOTE | 2017-12-18 13:16 | Electrocardiograph Report ---
[place] [id number] Test Date: 2017-12-14 Pat Name: Cesilia Mckinney Department: EXAM6 Room: 2A16 Gender: F [employer] Professional: : 1945 Requested By: Angel Luis Tejeda Order Number: [id number] Reading MD: Dean Hay Measurements Intervals [place] Rate: 75 P: 69 VT: 113 QRS: 59 QRSD: 90 T: 87 QT: 401 QTc: 448 Interpretive Statements Sinus rhythm Nonsepcific ST-T changes Electronically Signed On 12-18-2017 13:15:09 EDT by Dean Hay
[2017-12-19] MEDS: 0.9 % Sodium Chloride 1,000 ML IVC SCH (04:05)
[2017-12-19 05:38] LABS: BUN/Creatinine Ratio 11 (6-26); Blood Urea Nitrogen 5 mg/dL (8-23); Calcium 8.6 mg/dL (8.6-10.3); Carbon Dioxide 20 mEq/L (23-29); Chloride 107 mEq/L (98-107); Glucose 64 mg/dL (70-105); Lipase 4 Units/L (11-82); Osmolality,Calculated 285 (280-300); Potassium 3.8 mEq/L (3.5-5.1); Sodium 140 mEq/L (136-145); eGFR For Non-African Americans > 60 (> 60)
[2017-12-19] MEDS: *HR* Enoxaparin 40 MG/0.4 ML SYRINGE SQ SCH (06:24)
[2017-12-19] MEDS: Aspirin Enteric Coated 81 MG Tablet PO SCH (09:57)
[2017-12-19] MEDS: OXYCODONE Oral CONC 10 MG/0.5 ML ORAL.SYG SL PRN ×2 (09:57→20:57)
--- NOTE | 2017-12-19 19:23 | Internal Med Progress Note ---
Hospitalist Progress Note - Encounter Date of Encounter: 12/19/17 Time of Encounter: 09:00 - Subjective Interval History: Epigastric area pain is resolved. C/o mild back pain. No fever overnight. Will restart clear liquid diet. - Exam Vitals: Temp Pulse Resp BP Pulse Ox 98.1 F 69 18 168/71 94 12/19/17 11:09 12/19/17 11:09 12/19/17 11:09 12/19/17 11:09 12/19/17 11:09 Exam: General: pleasant, without distress HEENT: Head atraumatic, normocephalic, EOMI, PERRL, Moist Mucous Membranes, CVS: RRR, S1, s2 normal, No MRG. no pedal edema. RS: CTAB, No adventitious lung sounds Abdomen: Soft, NT, BS normal. Skin: warm and dry, absent rash, absent open wounds and nodules Neuro: Cranial nerves II through XII intact, alert oriented 3, No focal signs Psych: good insight and judgment, normal affect - Assessment and Plan (1) Hypokalemia Current Visit: Yes Status: Resolved Assessment and Plan: Resolved after supplement. (2) Pancreatitis Current Visit: Yes Status: Acute Assessment and Plan: Recurrent pancreatitis, repeat US liver shows no CBD dilation. Pancreatitis is most likely due to alcoholism. - Lipase get down on NPO (4 today), will restart clear liquid diet. - Slowly advance diet as pt has several recurrency. (3) Alcohol abuse Current Visit: Yes Status: Chronic Assessment and Plan: Patient reports no alcohol intake since discharge Continue to monitor Alcohol level < 10 No signs of withdraw (4) Hyperlipidemia Current Visit: Yes Status: Chronic Assessment and Plan: Continue home dose of pravachol DVT Prophylaxis: Lovenox sc - Time Spent with Patient Total time spent is greater than 50% in coordination of care (as documented) at patient's floor/unit and/or counseling patient: 30 min 25 - 35 minutes Plan of Care Discussed with: patient Internal Medicine: Result - Labs CBC & Chem 7: 12/18/17 10:07 12/19/17 04:18 Labs: BMP 12/19/17 04:18 Sodium 140 Potassium 3.8 Chloride 107 Carbon Dioxide 20 L BUN 5 L Creatinine 0.47 L Glucose 64 L Calcium 8.6 - ABG Interpretation ABG results: PT/INR, D-dimer PT 12.2 Seconds (9.4-12.1) H 12/14/17 15:58 Consult Discharge Plan - Plan Referrals: Ha Sinha MD [Partnered Physician] - 12/22/17 2:30 pm (Please follow up as schedule...) Cristiana Burr, BABS [Primary Care Provider] - (Patient has to call an appointment per Office) (2) Pancreatitis Qualifiers: Chronicity: acute Pancreatitis type: alcohol induced Acute pancreatitis complication: no infection or necrosis Qualified Code(s): K85.20 - Alcohol induced acute pancreatitis without necrosis or infection (4) Hyperlipidemia Qualifiers: Hyperlipidemia type: unspecified Qualified Code(s): E78.5 - Hyperlipidemia, unspecified
[2017-12-20 05:37] LABS: BUN/Creatinine Ratio 7 (6-26); Blood Urea Nitrogen 3 mg/dL (8-23); Calcium 8.6 mg/dL (8.6-10.3); Carbon Dioxide 24 mEq/L (23-29); Chloride 107 mEq/L (98-107); Glucose 80 mg/dL (70-105); Lipase 31 Units/L (11-82); Osmolality,Calculated 284 (280-300); Potassium 3.2 mEq/L (3.5-5.1); Sodium 139 mEq/L (136-145); eGFR For Non-African Americans > 60 (> 60)
[2017-12-20] MEDS: *HR* Enoxaparin 40 MG/0.4 ML SYRINGE SQ SCH (06:22)
[2017-12-20] MEDS: Aspirin Enteric Coated 81 MG Tablet PO SCH (09:48)
[2017-12-20] MEDS: Potassium Chloride Elixir 20 MEQ/15 ML UDC PO SCH (09:49)
[2017-12-20] MEDS ORDERED: Potassium Chloride Elixir 20 MEQ/15 ML UDC PO ONE (10:15)
[2017-12-20] MEDS: OXYCODONE Oral CONC 10 MG/0.5 ML ORAL.SYG SL PRN ×3 (12:01→21:52)
--- NOTE | 2017-12-20 12:05 | Internal Med Progress Note ---
Hospitalist Progress Note - Encounter Date of Encounter: 12/20/17 Time of Encounter: 09:00 - Subjective Interval History: Denies epigastric pain but c/o fullness. C/o mild back pain. No fever overnight. pt walks arround in the hallway. - Exam Vitals: Temp Pulse Resp BP Pulse Ox 98.5 F 65 17 164/78 94 12/20/17 06:43 12/20/17 06:43 12/20/17 06:43 12/20/17 06:43 12/20/17 06:43 Exam: General: pleasant, without distress HEENT: Head atraumatic, normocephalic, EOMI, PERRL, Moist Mucous Membranes, CVS: RRR, S1, s2 normal, No MRG. no pedal edema. RS: CTAB, No adventitious lung sounds Abdomen: Soft, mild tenderness on epigastric area, BS normal. Skin: warm and dry, absent rash, absent open wounds and nodules Neuro: Cranial nerves II through XII intact, alert oriented 3, No focal signs Psych: good insight and judgment, normal affect - Assessment and Plan (1) Hypokalemia Current Visit: Yes Status: Resolved Assessment and Plan: Resume home dose of potassium supplement. Give extra supplement today. (2) Pancreatitis Current Visit: Yes Status: Acute Assessment and Plan: Recurrent pancreatitis, repeat US liver shows no CBD dilation. Pancreatitis is most likely due to alcoholism. - Lipase remains WNL, will keep clear liquid diet for today. - Slowly advance diet as pt has several recurrency. (3) Alcohol abuse Current Visit: Yes Status: Chronic Assessment and Plan: Patient reports no alcohol intake since discharge Continue to monitor Alcohol level < 10 No signs of withdraw (4) Hyperlipidemia Current Visit: Yes Status: Chronic Assessment and Plan: Continue home dose of pravachol DVT Prophylaxis: Lovenox sc - Time Spent with Patient Total time spent is greater than 50% in coordination of care (as documented) at patient's floor/unit and/or counseling patient: 30 min 25 - 35 minutes Plan of Care Discussed with: patient Internal Medicine: Result - Labs CBC & Chem 7: 12/18/17 10:07 12/20/17 05:02 Labs: BMP 12/20/17 05:02 Sodium 139 Potassium 3.2 L Chloride 107 Carbon Dioxide 24 BUN 3 L Creatinine 0.45 L Glucose 80 Calcium 8.6 - ABG Interpretation ABG results: PT/INR, D-dimer PT 12.2 Seconds (9.4-12.1) H 12/14/17 15:58 Consult Discharge Plan - Plan Referrals: Ha Sinha MD [Partnered Physician] - 12/22/17 2:30 pm (Please follow up as schedule...) Cristiana Burr, MAIL CLERKS SUPERVISOR [Primary Care Provider] - (Patient has to call an appointment per Office) (2) Pancreatitis Qualifiers: Chronicity: acute Pancreatitis type: alcohol induced Acute pancreatitis complication: no infection or necrosis Qualified Code(s): K85.20 - Alcohol induced acute pancreatitis without necrosis or infection (4) Hyperlipidemia Qualifiers: Hyperlipidemia type: unspecified Qualified Code(s): E78.5 - Hyperlipidemia, unspecified
[2017-12-21 06:21] LABS: BUN/Creatinine Ratio 8 (6-26); Blood Urea Nitrogen 4 mg/dL (8-23); Carbon Dioxide 22 mEq/L (23-29); Chloride 106 mEq/L (98-107); Glucose 91 mg/dL (70-105); Lipase 676 Units/L (11-82); Osmolality,Calculated 282 (280-300); Potassium 3.5 mEq/L (3.5-5.1); Sodium 138 mEq/L (136-145); eGFR For Non-African Americans > 60 (> 60)
[2017-12-21] MEDS: *HR* Enoxaparin 40 MG/0.4 ML SYRINGE SQ SCH (06:26)
[2017-12-21] MEDS: OXYCODONE Oral CONC 10 MG/0.5 ML ORAL.SYG SL PRN ×4 (06:35→20:11)
[2017-12-21] MEDS: Aspirin Enteric Coated 81 MG Tablet PO SCH (07:54)
[2017-12-21] MEDS: Potassium Chloride Elixir 20 MEQ/15 ML UDC PO SCH (07:55)
--- NOTE | 2017-12-21 11:04 | Internal Med Progress Note ---
Hospitalist Progress Note - Encounter Date of Encounter: 12/21/17 Time of Encounter: 09:00 - Subjective Interval History: Pt has epigastric pain again after resuming diet. No n/v. No fever. - Exam Vitals: Temp Pulse Resp BP Pulse Ox 98.2 F 62 18 153/69 92 12/21/17 07:18 12/21/17 07:18 12/21/17 07:18 12/21/17 07:18 12/21/17 07:18 Exam: General: pleasant, without distress HEENT: Head atraumatic, normocephalic, EOMI, PERRL, Moist Mucous Membranes, CVS: RRR, S1, s2 normal, No MRG. no pedal edema. RS: CTAB, No adventitious lung sounds Abdomen: Soft, mild tenderness on epigastric area, BS normal. Skin: warm and dry, absent rash, absent open wounds and nodules Neuro: Cranial nerves II through XII intact, alert oriented 3, No focal signs Psych: good insight and judgment, normal affect - Assessment and Plan (1) Hypokalemia Current Visit: Yes Status: Resolved Assessment and Plan: Improved. Resume home dose of potassium supplement. (2) Pancreatitis Current Visit: Yes Status: Acute Assessment and Plan: Recurrent pancreatitis, repeat US liver shows no CBD dilation. However, pt cannot tolerate diet advance. - Lipase elevated again, will keep clear liquid diet for today but instruct pt just drink water and try to decrease food intake.. - Will reconsult GI, D/W Dr Ramires, will order MRCP, CA 19-9, and CEA (3) Alcohol abuse Current Visit: Yes Status: Chronic Assessment and Plan: Patient reports no alcohol intake recently. (4) Hyperlipidemia Current Visit: Yes Status: Chronic Assessment and Plan: Continue home dose of pravachol DVT Prophylaxis: Lovenox sc - Time Spent with Patient Total time spent is greater than 50% in coordination of care (as documented) at patient's floor/unit and/or counseling patient: 30 min 25 - 35 minutes Plan of Care Discussed with: patient Internal Medicine: Result - Labs CBC & Chem 7: 12/18/17 10:07 12/21/17 04:54 Labs: BMP 12/21/17 04:54 Sodium 138 Potassium 3.5 Chloride 106 Carbon Dioxide 22 L BUN 4 L Creatinine 0.48 L Glucose 91 Calcium 9.0 - ABG Interpretation ABG results: PT/INR, D-dimer PT 12.2 Seconds (9.4-12.1) H 12/14/17 15:58 Consult Discharge Plan - Plan Referrals: Ha Sinha MD [Partnered Physician] - 12/22/17 2:30 pm (Please follow up as schedule...) Cristiana Burr, ORACLE BUSINESS INTELLIGENCE DEVELOPER [Primary Care Provider] - (Patient has to call an appointment per Office) (2) Pancreatitis Qualifiers: Chronicity: acute Pancreatitis type: alcohol induced Acute pancreatitis complication: no infection or necrosis Qualified Code(s): K85.20 - Alcohol ind uced acute pancreatitis without necrosis or infection (4) Hyperlipidemia Qualifiers: Hyperlipidemia type: unspecified Qualified Code(s): E78.5 - Hyperlipidemia, unspecified
[2017-12-21] MEDS ORDERED: D5% in Water 1,000 ML IVC PRN (11:30)
[2017-12-21] MEDS ORDERED: Dextrose Gel 15 GM/37.5 ML TUBE PO PRN ×2 (11:30)
[2017-12-21] MEDS ORDERED: *HR* Dextrose 50 % in Water (Syg) 50 ML SYRINGE IVP PRN (11:30)
[2017-12-21] MEDS ORDERED: Insulin LISPRO 300 UNITS/3 ML VIAL SQ SCH ×2 (11:30→21:00)
[2017-12-21] MEDS: 0.9 % Sodium Chloride 1,000 ML IVC SCH (16:17)
[2017-12-22] MEDS: 0.9 % Sodium Chloride 1,000 ML IVC SCH ×2 (03:31→19:01)
[2017-12-22 04:37] LABS: Basophils # 0.1 K/mcL (0.0-0.2); Basophils % 0.9 %; Eosinophils # 0.3 K/mcL (0.0-0.6); Eosinophils % 5.5 %; Hematocrit 33.7 % (35.3-44.9); Immature Granulocytes % 0.7 % (0-4); Lymphocytes # 1.5 K/mcL (0.6-4.6); Lymphocytes % 26.4 %; Mean Corpuscular HGB Conc 32.9 g/dL (31.6-35.5); Mean Corpuscular Hemoglobin 31.4 pg (28.0-33.3); Mean Corpuscular Volume 95.5 fL (83.0-100.0); Mean Platelet Volume 9.7 fL (9.4-12.4); Monocytes # 0.6 K/mcL (0.0-1.3); Monocytes % 10.6 %; Neutrophils # 3.2 K/mcL (1.6-8.9); Platelet Count 344 K/mcL (140-400); Red Blood Count 3.53 M/mcL (3.82-4.97); Red Cell Distribution Width 13.1 % (11.5-14.5); Segmented Neutrophils % 55.9 %
[2017-12-22 04:44] LABS: Hemoglobin 11.1 g/dL (11.5-15.4)
[2017-12-22 04:54] LABS: BUN/Creatinine Ratio 6 (6-26); Blood Urea Nitrogen 3 mg/dL (8-23); Calcium 8.5 mg/dL (8.6-10.3); Carbon Dioxide 23 mEq/L (23-29); Chloride 108 mEq/L (98-107); Glucose 89 mg/dL (70-105); Lipase 575 Units/L (11-82); Osmolality,Calculated 286 (280-300); Potassium 3.6 mEq/L (3.5-5.1); Sodium 140 mEq/L (136-145); eGFR For Non-African Americans > 60 (> 60)
[2017-12-22] MEDS: *HR* Enoxaparin 40 MG/0.4 ML SYRINGE SQ SCH (05:18)
[2017-12-22] MEDS: Potassium Chloride Elixir 20 MEQ/15 ML UDC PO SCH (08:42)
[2017-12-22] MEDS: Aspirin Enteric Coated 81 MG Tablet PO SCH (08:42)
[2017-12-22] MEDS: OXYCODONE Oral CONC 10 MG/0.5 ML ORAL.SYG SL PRN ×3 (10:01→23:06)
--- NOTE | 2017-12-22 13:19 | Internal Med Progress Note ---
Hospitalist Progress Note - Encounter Date of Encounter: 12/22/17 Time of Encounter: 09:00 - Subjective Interval History: Pt has no abd pain or n/v today. No fever. - Exam Vitals: Temp Pulse Resp BP Pulse Ox 98.3 F 63 16 143/58 93 12/22/17 10:52 12/22/17 10:52 12/22/17 10:52 12/22/17 10:52 12/22/17 10:52 Exam: General: pleasant, without distress HEENT: Head atraumatic, normocephalic, EOMI, PERRL, Moist Mucous Membranes, CVS: RRR, S1, s2 normal, No MRG. no pedal edema. RS: CTAB, No adventitious lung sounds Abdomen: Soft, NT, BS normal. Skin: warm and dry, absent rash, absent open wounds and nodules Neuro: Cranial nerves II through XII intact, alert oriented 3, No focal signs Psych: good insight and judgment, normal affect - Assessment and Plan (1) Hypokalemia Current Visit: Yes Status: Resolved Assessment and Plan: Improved. Resume home dose of potassium supplement. (2) Pancreatitis Current Visit: Yes Status: Acute Assessment and Plan: Recurrent pancreatitis, pt cannot tolerate any diet at all. - MRCP shows pancreas head cyst communicate with pancreas duct, possibly duct stone. - Will reconsult GI - Keep NPO, IVF at this point. (3) Alcohol abuse Current Visit: Yes Status: Chronic Assessment and Plan: Patient reports no alcohol intake recently. (4) Hyperlipidemia Current Visit: Yes Status: Chronic Assessment and Plan: Continue home dose of pravachol DVT Prophylaxis: Lovenox sc - Time Spent with Patient Total time spent is greater than 50% in coordination of care (as documented) at patient's floor/unit and/or counseling patient: 30 min 25 - 35 minutes Plan of Care Discussed with: patient Internal Medicine: Result - Labs CBC & Chem 7: 12/22/17 04:21 12/22/17 04:21 Labs: Short CBC 12/22/17 Range/Units 04:21 WBC 5.7 (4.3-11.1) K/mcL Hgb 11.1 L D (11.5-15.4) g/dL Hct 33.7 L (35.3-44.9) % Plt Count 344 (140-400) K/mcL Neutrophils # 3.2 (1.6-8.9) K/mcL BMP 12/22/17 04:21 Sodium 140 Potassium 3.6 Chloride 108 H Carbon Dioxide 23 BUN 3 L Creatinine 0.49 L Glucose 89 Calcium 8.5 L - ABG Interpretation ABG results: PT/INR, D-dimer PT 12.2 Seconds (9.4-12.1) H 12/14/17 15:58 - Impressions Impressions Abdomen MRI 12/22/17 07:46 IMPRESSION: 1. Complex cystic structure in the pancreatic head which appears to communicate with the proximal and distal pancreatic duct. In the setting of pancreatitis, this almost certainly represents sequela of pancreatitis with internal filling defects felt to represent ductal stones. A pseudocyst would be considered less likely. 2. Pancreatic ductal adenocarcinoma is considered unlikely given the patient's current clinical findings as well as the characteristic appearance of the distal pancreatic duct which is dilated and shows beading and prominent side branches. 3. No evidence of biliary dilatation. 4. Incidental findings include bilateral pleural effusions and mild perinephric stranding which may indicate chronic medical renal disease. D/ / Carltio Trotter MD / Carlito Trotter MD Interpreting Provider: Carlito Trotter MD Consult Discharge Plan - Plan Referrals: Ha Sinha MD [Partnered Physician] - 12/29/17 8:15 am (Please follow up as schedule...) Cristiana Burr, [employer]KH[employer] SHRIMP [employer]AT [Primary Care Provider] - (Patient has to call an appointment per Office) (2) Pancreatitis Qualifiers: Chronicity: acute Pancreatitis type: alcohol induced Acute pancreatitis complication: no infection or necrosis Qualified Code(s): K85.20 - Alcohol induced acute pancreatitis without necrosis or infection (4) Hyperlipidemia Qualifiers: Hyperlipidemia type: unspecified Qualified Code(s): E78.5 - Hyperlipidemia, unspecified
[2017-12-23] MEDS: *HR* Enoxaparin 40 MG/0.4 ML SYRINGE SQ SCH (05:00)
[2017-12-23] MEDS: 0.9 % Sodium Chloride 1,000 ML IVC SCH ×4 (05:00→19:32)
[2017-12-23 06:01] LABS: BUN/Creatinine Ratio 8 (6-26); Blood Urea Nitrogen 4 mg/dL (8-23); Calcium 8.9 mg/dL (8.6-10.3); Carbon Dioxide 21 mEq/L (23-29); Chloride 108 mEq/L (98-107); Glucose 73 mg/dL (70-105); Lipase 315 Units/L (11-82); Osmolality,Calculated 283 (280-300); Potassium 3.5 mEq/L (3.5-5.1); Sodium 139 mEq/L (136-145); eGFR For Non-African Americans > 60 (> 60)
--- NOTE | 2017-12-23 08:27 | Internal Med Progress Note ---
Hospitalist Progress Note - Encounter Date of Encounter: 12/23/17 Time of Encounter: 08:08 - Subjective Interval History: Ms. Mckinney is a 72 year old female with medical history of hypertension, hyperlipidemia, chronic pancreatitis was recently discharged from this facility 12/13 after being managed for acute on chronic pancreatitis. She had evidence o f pancreatitis as well as a new left adnexal known to and stated that she was on a regular diet prior to discharge. However, this morning she woke up with severe abdominal pain which was generalized and worse with movement and worse with deep breaths. She denies any alcohol intake since being discharged. She denies fever or chills. She denies nausea, vomiting. She denies chest pain or cough, she denies shortness of breath, she denies leg swelling or ankle edema. Patient was admitted on 12/14, 339 on admission. she has been here for 1 week, but still unable to tolerate diet, MRCP showed 1. Complex cystic structure in the pancreatic head which appears to communicate with the proximal and distal pancreatic duct. In the setting of pancreatitis, this almost certainly repres ents sequela of pancreatitis with internal filling defects felt to represent ductal stones. A pseudocyst would be considered less likely. Dr Reynoso was reconsulted, I called GI oncall today and spoke to the GI resident, he is ok to start clear, they are considering place [place] for post-pyloric feeding. I discussed the conversation to the patient and family. - Exam Vitals: Temp Pulse Resp BP Pulse Ox 98.8 F 75 18 137/65 94 12/23/17 06:56 12/23/17 06:56 12/23/17 06:56 12/23/17 06:56 12/23/17 06:56 Exam: General: pleasant, without distress HEENT: Head atraumatic, normocephalic, EOMI, PERRL, Moist Mucous Membranes, CVS: RRR, S1, s2 normal, No MRG. no pedal edema. RS: CTAB, No adventitious lung sounds Abdomen: Soft, NT, BS normal. Skin: warm and dry, absent rash, absent open wounds and nodules Neuro: Cranial nerves II through XII intact, alert oriented 3, No focal signs Psych: good insight and judgment, normal affect - Assessment and Plan (1) Pancreatitis Current Visit: Yes Status: Acute Assessment and Plan: Recurrent pancreatitis, patient still unable to tolerate diet, will consult nutrition. - MRCP shows pancreas head cyst communicate with pancreas duct, possibly duct stone. - reconsult GI, I spoke to GI resident, he is ok to start clears, they are considering [place] feeding, he will see the patient shortly, patient and family have been waiting to see GI for few days. start clears, continue IVF (2) Alcohol abuse Current Visit: Yes Status: Chronic Assessment and Plan: no signs for withdrawal, she denies active alcohol use (3) Hyperlipidemia Current Visit: Yes Status: Chronic Assessment and Plan: on Simvastatin (4) Hypertension Current Visit: Yes Status: Acute Assessment and Plan: on lisinopril DVT Prophylaxis: Lovenox sc - Time Spent with Patient Total time spent is greater than 50% in coordination of care (as documented) at patient's floor/unit and/or counseling patient: 25 - 35 minutes Plan of Care Discussed with: patient Internal Medicine: Result - Labs CBC & Chem 7: 12/22/17 04:21 12/23/17 05:05 Labs: BMP 12/23/17 05:05 Sodium 139 Potassium 3.5 Chloride 108 H Carbon Dioxide 21 L BUN 4 L Creatinine 0.49 L Glucose 73 Calcium 8.9 - ABG Interpretation ABG results: PT/INR, D-dimer PT 12.2 Seconds (9.4-12.1) H 12/14/17 15:58 - Impressions Impressions Abdomen MRI 12/22/17 07:46 IMPRESSION: 1. Complex cystic structure in the pancreatic head which appears to communicate with the proximal and distal pancreatic duct. In the setting of pancreatitis, this almost certainly represents sequela of pancreatitis with internal filling defects felt to represent ductal stones. A pseudocyst would be considered less likely. 2. Pancreatic ductal adenocarcinoma is considered unlikely given the patient's current clinical findings as well as the characteristic appearance of the distal pancreatic duct which is dilated and shows beading and prominent side branches. 3. No evidence of biliary dilatation. 4. Incidental findings include bilateral pleural effusions and mild perinephric stranding which may indicate chronic medical renal disease. D/ / Carlito Trotter MD / Carlito Trotter MD Interpreting Provider: Carlito Trotter MD Consult Discharge Plan - Plan Referrals: Ha Sinha MD [Partnered Physician] - 12/29/17 8:15 am (Please follow up as schedule...) Cristiana Burr CNP [Primary Care Provider] - (Patient has to call an appointment per Office) (1) Pancreatitis Qualifiers: Chronicity: acute Pancreatitis type: alcohol induced Acute pancreatitis complication: no infection or necrosis Qualified Code(s): K85.20 - Alcohol induced acute pancreatitis without necrosis or infection (3) Hyperlipidemia Qualifiers: Hyperlipidemia type: unspecified Qualified Code(s): E78.5 - Hyperlipidemia, unspecified (4) Hypertension Qualifiers: Hypertension type: essential hypertension Qualified Code(s): I10 - Essential (primary) hypertension
[2017-12-23] MEDS: Potassium Chloride Elixir 20 MEQ/15 ML UDC PO SCH (08:29)
[2017-12-23] MEDS: Aspirin Enteric Coated 81 MG Tablet PO SCH (08:29)
[2017-12-23] MEDS: OXYCODONE Oral CONC 10 MG/0.5 ML ORAL.SYG SL PRN ×2 (09:21→13:48)
--- NOTE | 2017-12-23 10:56 | Gastroenterology Progress Note ---
<GloriaRamon pina - Last Filed: 12/23/17 10:52> Date of Encounter: 12/23/17 Time of Encounter: 10:52 - Assessment and plan (1) Pancreatitis Current Visit: Yes Status: Acute Assessment and plan: Symptomatically the patient appears improved. Lipase has trended down. MRCP reveals complex cystic structure in the pancreatic head, likely sequela of pancreatitis. Pseudocyst is felt to be less likely and malignancy is much less likely. Discussed with patient, she is hungry and would like to advance her diet. We will slowly and cautiously advance her diet starting with clear liquids today. Advance diet as tolerated. If she is unable to tolerate a diet and patient will likely need nasal duodenal tube for tube feedings for several weeks while her pancreatitis completely resolves. This was discussed with the patient and her sister and they understand and agree with the plan. Qualifiers: Chronicity: acute Pancreatitis type: alcohol induced Acute pancreatitis complication: no infection or necrosis Qualified Code(s): K85.20 - Alcohol induced acute pancreatitis without necrosis or infection (2) Pancreatic cyst Current Visit: Yes Status: Acute Assessment and plan: MRCP reveals complex cystic structure in the pancreatic head which appears to communicate with the proximal distal pancreatic duct. Even her pancreatitis as above this is almost certainly related to her acute inflammation. Patient does report a strong family history of malignancy and given these findings malignancy cannot be completely excluded, therefore patient will ultimately need upper endoscopy with EUS and fine-needle aspiration to rule out malignancy, however given her acute pancreatitis this will be deferred for at least several weeks until her acute illness resolves. Patient will then follow-up as an outpatient and this will be planned. This was discussed at length with the patient and the patient's sister who understand and agree with the plan. - Time Spent With Patient Total time spent is greater than 50% in coordination of care (as documented) at patient's floor/unit and/or counseling patient: - Subjective Interval history: Patient seen and examined at bedside. Patient states that she feels better today. She states that she had some water with her potassium pills this morning and reports very mild discomfort but overall improved. She denies nausea, vomiting. She states she is passing gas and has had several bowel movements last several days. She reports feeling very hungry and having an appetite. Without eating or drinking she reports no abdominal pain. - Constitutional Vitals: Temp Pulse Resp BP Pulse Ox 98.8 F 75 18 137/65 94 12/23/17 06:56 12/23/17 06:56 12/23/17 06:56 12/23/17 06:56 12/23/17 06:56 General appearance: Present: cooperative, A&O X 3, no acute distress, answers questions appropriately - Respiratory Respiratory exam: Present: CTAB. Absent: rales, rhonchi, wheezes - Cardiovascular Cardiovascular exam: Present: RRR. Absent: gallop, rubs, systolic murmur - GI/Abdominal GI/Abdominal exam: Present: normal bowel sounds, soft, tenderness (Mild epigastric tenderness with deep palpation). Absent: distended, guarding Results - Labs CBC & Chem 7: 12/22/17 04:21 12/23/17 05:05 Labs: Last Result Calcium 8.9 mg/dL (8.6-10.3) 12/23/17 05:05 Troponin I < 0.03 ng/mL (< 0.04) 12/14/17 11:37 Triglycerides 98 mg/dL (< 150) 12/15/17 05:11 Entire Visit Hgb 11.1 g/dL (11.5-15.4) L D 12/22/17 04:21 Hct 33.7 % (35.3-44.9) L 12/22/17 04:21 PT 12.2 Seconds (9.4-12.1) H 12/14/17 15:58 Total Bilirubin 0.4 mg/dL (0.3-1.0) 12/15/17 05:11 AST 20 Units/L (13-39) 12/15/17 05:11 ALT 11 Units/L (7-52) 12/15/17 05:11 Lipase 315 Units/L (11-82) H 12/23/17 05:05 Carcinoembryonic Ag 3.1 ng/mL (Less than 5.0) 12/21/17 11:35 - ABG ABG results: PT/INR, D-dimer PT 12.2 Seconds (9.4-12.1) H 12/14/17 15:58 Consult Discharge Plan - Plan Referrals: Ha Sinha MD [Partnered Physician] - 12/29/17 8:15 am (Please follow up as schedule...) Cristiana Burr, SLAB DEPILER OPERATOR [Primary Care Provider] - (Patient has to call an appointment per Office) <Neeru Reynoso - Last Filed: 12/23/17 15:23> Time of Encounter: 14:00 - Time Spent With Patient Total time spent is greater than 50% in coordination of care (as documented) at patient's floor/unit and/or counseling patient: - Constitutional Vitals: Temp Pulse Resp BP Pulse Ox 98.9 F 64 18 132/61 95 12/23/17 11:24 12/23/17 11:24 12/23/17 11:24 12/23/17 11:24 12/23/17 11:24 Results - Labs CBC & Chem 7: 12/22/17 04:21 12/23/17 05:05 Labs: Last Result Calcium 8.9 mg/dL (8.6-10.3) 12/23/17 05:05 Troponin I < 0.03 ng/mL (< 0.04) 12/14/17 11:37 Triglycerides 98 mg/dL (< 150) 12/15/17 05:11 Entire Visit Hgb 11.1 g/dL (11.5-15.4) L D 12/22/17 04:21 Hct 33.7 % (35.3-44.9) L 12/22/17 04:21 PT 12.2 Seconds (9.4-12.1) H 12/14/17 15:58 Total Bilirubin 0.4 mg/dL (0.3-1.0) 12/15/17 05:11 AST 20 Units/L (13-39) 12/15/17 05:11 ALT 11 Units/L (7-52) 12/15/17 05:11 Lipase 315 Units/L (11-82) H 12/23/17 05:05 Carcinoembryonic Ag 3.1 ng/mL (Less than 5.0) 12/21/17 11:35 - ABG ABG results: PT/INR, D-dimer PT 12.2 Seconds (9.4-12.1) H 12/14/17 15:58 - Attending Attestation I examined this patient and my medical decision-making was reviewed with the Resident Physician. I agree with the documented findings, disposition and treatment plan as described except to the extent set forth below. Pt seen with the Dr. Morrissey. Per patient is able to ate some clear liquids today. On examination mild epigastric tenderness. Assessment. Patient with the recurrent pancreatitis and MRCP showing a cystic lesion in the head region most probably post pancreatitis. Recommendation: Clear liquid advance as tolerated if not able to tolerate oral then she will be candidate either for enteric feeding or TPN
[2017-12-24 04:26] LABS: Basophils # 0.1 K/mcL (0.0-0.2); Basophils % 0.9 %; Eosinophils # 0.3 K/mcL (0.0-0.6); Eosinophils % 3.7 %; Hematocrit 32.5 % (35.3-44.9); Hemoglobin 10.8 g/dL (11.5-15.4); Immature Granulocytes % 0.6 % (0-4); Lymphocytes # 1.6 K/mcL (0.6-4.6); Lymphocytes % 23.6 %; Mean Corpuscular HGB Conc 33.2 g/dL (31.6-35.5); Mean Corpuscular Hemoglobin 31.1 pg (28.0-33.3); Mean Corpuscular Volume 93.7 fL (83.0-100.0); Monocytes # 0.7 K/mcL (0.0-1.3); Monocytes % 10.2 %; Neutrophils # 4.1 K/mcL (1.6-8.9); Platelet Count 374 K/mcL (140-400); Red Blood Count 3.47 M/mcL (3.82-4.97)
[2017-12-24 04:42] LABS: BUN/Creatinine Ratio 9 (6-26); Blood Urea Nitrogen 4 mg/dL (8-23); Calcium 8.5 mg/dL (8.6-10.3); Carbon Dioxide 20 mEq/L (23-29); Chloride 109 mEq/L (98-107); Glucose 88 mg/dL (70-105); Lipase 25 Units/L (11-82); Magnesium 1.7 mg/dL (1.6-2.6); Osmolality,Calculated 288 (280-300); Potassium 3.3 mEq/L (3.5-5.1); Sodium 141 mEq/L (136-145); eGFR For Non-African Americans > 60 (> 60)
[2017-12-24] MEDS: *HR* Enoxaparin 40 MG/0.4 ML SYRINGE SQ SCH (04:59)
[2017-12-24] MEDS: 0.9 % Sodium Chloride 1,000 ML IVC SCH (06:37)
[2017-12-24] MEDS: Potassium Chloride Elixir 20 MEQ/15 ML UDC PO SCH (08:11)
[2017-12-24] MEDS: Aspirin Enteric Coated 81 MG Tablet PO SCH (08:12)
[2017-12-24] MEDS ORDERED: Potassium Phosphate 44 MEQ in 0.9 % Sodium Chloride 250 ML IVPB ONE (09:01)
--- NOTE | 2017-12-24 12:18 | Internal Med Progress Note ---
Date of Encounter: 12/24/17 Time of Encounter: 12:16 - Time Spent With Patient - Assessment and Plan (1) Pancreatitis Current Visit: Yes Status: Acute Assessment and Plan: Recurrent pancreatitis, tolerating clear liquids well. Plan to advance as tolerated. - MRCP shows pancreas head cyst communicate with pancreas duct, possibly duct stone. GI is following. There is advanced for nasoduodenal tube for feeding in case patient has recurrent pain. Patient hypertriglyceridemia is improved according to her and is around 250. Th is is low risk for acute pancreatitis at this point. (2) Alcohol abuse Current Visit: Yes Status: Chronic Assessment and Plan: no signs for withdrawal, she denies active alcohol use. Last use was 2 weeks ago. (3) Hyperlipidemia Current Visit: Yes Status: Chronic Assessment and Plan: on Simvastatin. Patient states her hypertriglyceridemia is under better control (4) Hypertension Current Visit: Yes Status: Acute Assessment and Plan: on lisinopril DVT Prophylaxis: Lovenox sc - Time Spent with Patient Total time spent is greater than 50% in coordination of care (as documented) at patient's floor/unit and/or counseling patient: 25 - 35 minutes Plan of Care Discussed with: patient 25 - 35 minutes - Subjective Interval history: Patient seen and examined today. She does not have any abdominal pain. She is tolerating clear liquids very well. She had her gallbladder removed back in July. This episode of acute on chronic pancreatitis is probably related to alcohol and tobacco exposure. She patient is not on any S1 or S2 drug-induced pancreatitis medications. - Constitutional Vitals: Temp Pulse Resp BP Pulse Ox 98.6 F 72 16 156/68 95 12/24/17 10:53 12/24/17 10:53 12/24/17 10:53 12/24/17 10:53 12/24/17 10:53 General appearance: Present: A&O X 3 Exam: General: pleasant, without distress Neck: Supple, no thyromegaly. CVS: RRR, S1, s2 normal, No MRG. no pedal edema. Lungs: Clear to auscultation. Abdomenn: Soft, NT, BS normal. No mass. Skin: warm and dry, absent rash, absent open wounds and nodules Neuro: Cranial nerves II through XII intact, alert oriented 3, No focal signs Psych: good insight and judgment, normal affect Internal Medicine: Result - Labs CBC & Chem 7: 1031/18 03:47 12/24/17 03:47 Labs: Short CBC 12/24/17 Range/Units 03:47 WBC 6.7 (4.3-11.1) K/mcL Hgb 10.8 L (11.5-15.4) g/dL Hct 32.5 L (35.3-44.9) % Plt Count 374 (140-400) K/mcL Neutrophils # 4.1 (1.6-8.9) K/mcL BMP 12/24/17 03:47 Sodium 141 Potassium 3.3 L Chloride 109 H Carbon Dioxide 20 L BUN 4 L Creatinine 0.43 L Glucose 88 Calcium 8.5 L - ABG Interpretation ABG results: PT/INR, D-dimer PT 12.2 Seconds (9.4-12.1) H 12/14/17 15:58 - Impressions Abdomen MRI 12/22/17 07:46 IMPRESSION: 1. Complex cystic structure in the pancreatic head which appears to communicate with the proximal and distal pancreatic duct. In the setting of pancreatitis, this almost certainly represents sequela of pancreatitis with internal filling defects felt to represent ductal stones. A pseudocyst would be considered less likely. 2. Pancreatic ductal adenocarcinoma is considered unlikely given the patient's current clinical findings as well as the characteristic appearance of the distal pancreatic duct which is dilated and shows beading and prominent side branches. 3. No evidence of biliary dilatation. 4. Incidental findings include bilateral pleural effusions and mild perinephric stranding which may indicate chronic medical renal disease. D/ / Carlito Trotter MD / Carlito Trotter MD Interpreting Provider: Carlito Trotter MD Consult Discharge Plan - Plan Referrals: Ha Sinha MD [Partnered Physician] - 12/29/17 8:15 am (Please follow up as schedule...) Cristiana Burr, ACCOUNTING SPECIALIST [Primary Care Provider] - (Patient has to call an appointment per Office)
[2017-12-25] MEDS: OXYCODONE Oral CONC 10 MG/0.5 ML ORAL.SYG SL PRN (00:40)
[2017-12-25] MEDS: 0.9 % Sodium Chloride 1,000 ML IVC SCH ×2 (00:41→16:14)
[2017-12-25 04:55] LABS: Basophils # 0.1 K/mcL (0.0-0.2); Basophils % 0.9 %; Eosinophils # 0.3 K/mcL (0.0-0.6); Eosinophils % 5.2 %; Hemoglobin 10.4 g/dL (11.5-15.4); Immature Granulocytes % 0.4 % (0-4); Lymphocytes # 1.6 K/mcL (0.6-4.6); Lymphocytes % 30.3 %; Mean Corpuscular HGB Conc 33.5 g/dL (31.6-35.5); Mean Corpuscular Hemoglobin 31.5 pg (28.0-33.3); Mean Corpuscular Volume 93.9 fL (83.0-100.0); Mean Platelet Volume 10.3 fL (9.4-12.4); Monocytes # 0.6 K/mcL (0.0-1.3); Monocytes % 11.1 %; Neutrophils # 2.8 K/mcL (1.6-8.9); Platelet Count 355 K/mcL (140-400); Red Cell Distribution Width 13.2 % (11.5-14.5); Segmented Neutrophils % 52.1 %
[2017-12-25 05:10] LABS: BUN/Creatinine Ratio 11 (6-26); Blood Urea Nitrogen 5 mg/dL (8-23); Calcium 8.4 mg/dL (8.6-10.3); Carbon Dioxide 19 mEq/L (23-29); Chloride 113 mEq/L (98-107); Glucose 94 mg/dL (70-105); Osmolality,Calculated 291 (280-300); Potassium 3.6 mEq/L (3.5-5.1); Sodium 142 mEq/L (136-145); eGFR For Non-African Americans > 60 (> 60)
[2017-12-25] MEDS: *HR* Enoxaparin 40 MG/0.4 ML SYRINGE SQ SCH (06:24)
[2017-12-25] MEDS: Potassium Chloride Elixir 20 MEQ/15 ML UDC PO SCH (08:15)
[2017-12-25] MEDS: Aspirin Enteric Coated 81 MG Tablet PO SCH (08:15)
[2017-12-25 09:12] LABS: Lipase 39 Units/L (11-82)
--- NOTE | 2017-12-25 10:41 | Internal Med Progress Note ---
Hospitalist Progress Note - Encounter Date of Encounter: 12/25/17 Time of Encounter: 10:39 - Subjective Interval History: Patient seen and examined this moring. No acute overnight events. Pain absent. Minimal slighty different pain under lt ribs. Denies trauma. Denies fever, chills, N/V. Tolerating clears. Had BM. - Exam Vitals: Temp Pulse Resp BP Pulse Ox 97.8 F 80 18 156/70 96 12/25/17 08:20 12/25/17 08:20 12/25/17 08:20 12/25/17 08:20 12/25/17 09:09 Exam: General: In no distress HEENT: Head atraumatic, normocephalic, EOMI, PERRL, Moist Mucous Membranes, CVS: RRR, S1, s2 normal, No MRG. no pedal edema. RS: CTAB, No adventitious lung sounds Abdomen: Soft, NT, BS normal. Skin: warm and dry, absent rash, absent open wounds and nodules Neuro: Cranial nerves II through XII intact, alert oriented 3, No focal signs - Assessment and Plan (1) Pancreatitis Current Visit: Yes Status: Acute (2) Pancreatic cyst Current Visit: Yes Status: Acute - Summary of Assessment and Plan Summary of Assessment and Plan: Pancreatitis - Recurrent pancreatitis started after alcohol use - Diet being gradually advanced. - MRCP showed complex cystic structure in the pancreatic head. Possibly sequela of pancreatitis. Malignancy is much less likely however needs upper endoscopy and EUS with fine needle aspiration to r/o malignancy after resolution acute pancreatitis Hyperlipidemia - on Simvastatin. Patient states her hypertriglyceridemia is under better control Hypertension - on lisinopril - Time Spent with Patient Total time spent is greater than 50% in coordination of care (as documented) at patient's floor/unit and/or counseling patient: Internal Medicine: Result - Labs CBC & Chem 7: 12/25/17 04:18 12/25/17 04:18 Labs: Short CBC 12/25/17 Range/Units 04:18 WBC 5.4 (4.3-11.1) K/mcL Hgb 10.4 L (11.5-15.4) g/dL Hct 31.0 L (35.3-44.9) % Plt Count 355 (140-400) K/mcL Neutrophils # 2.8 (1.6-8.9) K/mcL BMP 12/25/17 04:18 Sodium 142 Potassium 3.6 Chloride 113 H Carbon Dioxide 19 L BUN 5 L Creatinine 0.45 L Glucose 94 Calcium 8.4 L - ABG Interpretation ABG results: PT/INR, D-dimer PT 12.2 Seconds (9.4-12.1) H 12/14/17 15:58 Consult Discharge Plan - Plan Referrals: Ha Sinha MD [Partnered Physician] - 12/29/17 8:15 am (Please follow up as schedule...) Cristiana Burr, HISTOTECHNOLOGIST [Primary Care Provider] - (Patient has to call an appointment per Office) (1) Pancreatitis Qualifiers: Chronicity: acute Pancreatitis type: alcohol induced Acute pancreatitis complication: no infection or necrosis Qualified Code(s): K85.20 - Alcohol induced acute pancreatitis without necrosis or infection
--- NOTE | 2017-12-25 11:45 | Gastroenterology Progress Note ---
<Ramon Woodard - Last Filed: 12/25/17 11:40> Date of Encounter: 12/25/17 Time of Encounter: 09:30 - Assessment and plan (1) Pancreatitis Current Visit: Yes Status: Acute Assessment and plan: Patient is tolerating PO intake. Slowly advance diet as tolerated. Lipase WNL. MRCP reveals complex cystic structure in the pancreatic head, likely sequela of pancreatitis. Pseudocyst is felt to be less likely and malignancy is much less likely. Follow up with Dr. Reynoso in 3 weeks as outpatient and schedule EUS. Qualifiers: Chronicity: acute Pancreatitis type: alcohol induced Acute pancreatitis complication: no infection or necrosis Qualified Code(s): K85.20 - Alcohol induced acute pancreatitis without necrosis or infection (2) Alcohol abuse Current Visit: Yes Status: Chronic - Time Spent With Patient Total time spent is greater than 50% in coordination of care (as documented) at patient's floor/unit and/or counseling patient: - Subjective Interval history: Patient reports feeling better, and is without acute complaint at this time. She is tolerating PO intake without pain or N/V. - Constitutional Vitals: Temp Pulse Resp BP Pulse Ox 97.8 F 80 18 156/70 96 12/25/17 08:20 12/25/17 08:20 12/25/17 08:20 12/25/17 08:20 12/25/17 09:09 General appearance: Present: cooperative, A&O X 3, no acute distress, answers questions appropriately - Head Head exam: Present: atraumatic, normocephalic - Eye Eye exam: Present: normal appearance, sclera anicteric - ENT ENT exam: Present: mucous membranes moist - Neck Neck exam general surgery: Present: normal inspection, trachea midline - Respiratory Respiratory exam: Present: CTAB. Absent: rales, rhonchi - Cardiovascular Cardiovascular exam: Present: RRR, +S1, +S2 - GI/Abdominal GI/Abdominal exam: Present: soft, no peritoneal signs. Absent: distended, firm, guarding, tenderness - Rectal Rectal exam: Present: deferred - Extremities Exam Extremities exam: Present: warm - Neurological Exam Neurological exam: Present: no focal deficits - Psychiatric Psychiatric exam: Present: normal affect, normal mood - Skin Skin exam: Present: dry, intact, normal color, warm Results - Labs CBC & Chem 7: 12/25/17 04:18 11/01/18 04:18 Labs: Last Result Calcium 8.4 mg/dL (8.6-10.3) L 12/25/17 04:18 Troponin I < 0.03 ng/mL (< 0.04) 12/14/17 11:37 Triglycerides 98 mg/dL (< 150) 12/15/17 05:11 Entire Visit Hgb 10.4 g/dL (11.5-15.4) L 12/25/17 04:18 Hct 31.0 % (35.3-44.9) L 12/25/17 04:18 PT 12.2 Seconds (9.4-12.1) H 12/14/17 15:58 Total Bilirubin 0.4 mg/dL (0.3-1.0) 12/15/17 05:11 AST 20 Units/L (13-39) 12/15/17 05:11 ALT 11 Units/L (7-52) 12/15/17 05:11 Lipase 39 Units/L (11-82) 12/25/17 04:18 Carcinoembryonic Ag 3.1 ng/mL (Less than 5.0) 12/21/17 11:35 CA 19-9 Antigen 240 U/mL (0-37) H 12/21/17 11:35 - ABG ABG results: PT/INR, D-dimer PT 12.2 Seconds (9.4-12.1) H 12/14/17 15:58 Consult Discharge Plan - Plan Referrals: Ha Sinha MD [Partnered Physician] - 12/29/17 8:15 am (Please follow up as schedule...) Cristiana Burr, HEARING OFFICER [Primary Care Provider] - (Patient has to call an appointment per Office) <Neeru Reynoso - Last Filed: 12/25/17 19:00> Date of Encounter: 12/25/17 Time of Encounter: 18:00 - Time Spent With Patient Total time spent is greater than 50% in coordination of care (as documented) at patient's floor/unit and/or counseling patient: - Constitutional Vitals: Temp Pulse Resp BP Pulse Ox 98.3 F 65 20 159/80 96 12/25/17 12:23 12/25/17 12:23 12/25/17 12:23 12/25/17 12:23 12/25/17 12:23 Results - Labs CBC & Chem 7: 12/25/17 04:18 12/25/17 04:18 Labs: Last Result Calcium 8.4 mg/dL (8.6-10.3) L 12/25/17 04:18 Troponin I < 0.03 ng/mL (< 0.04) 12/14/17 11:37 Triglycerides 98 mg/dL (< 150) 12/15/17 05:11 Entire Visit Hgb 10.4 g/dL (11.5-15.4) L 12/25/17 04:18 Hct 31.0 % (35.3-44.9) L 12/25/17 04:18 PT 12.2 Seconds (9.4-12.1) H 12/14/17 15:58 Total Bilirubin 0.4 mg/dL (0.3-1.0) 12/15/17 05:11 AST 20 Units/L (13-39) 12/15/17 05:11 ALT 11 Units/L (7-52) 12/15/17 05:11 Lipase 39 Units/L (11-82) 12/25/17 04:18 Carcinoembryonic Ag 3.1 ng/mL (Less than 5.0) 12/21/17 11:35 CA 19-9 Antigen 240 U/mL (0-37) H 12/21/17 11:35 - ABG ABG results: PT/INR, D-dimer PT 12.2 Seconds (9.4-12.1) H 12/14/17 15:58 - Attending Attestation I have personally performed a face to face evaluation on this patient. I have reviewed and agree with the care plan. History and Exam by me shows: Patient seen. Abdominal pain is better. on examination; alert awake and oriented tolerating diet. Assessment patient with the pancreatitis with cystic lesion in the head. Recommendation: Follow up with GI as an outpatient and adva nce diet gradually as tolerated possible EUS in 4-6 weeks.
[2017-12-26] MEDS: 0.9 % Sodium Chloride 1,000 ML IVC SCH (04:32)
[2017-12-26] MEDS: *HR* Enoxaparin 40 MG/0.4 ML SYRINGE SQ SCH (06:15)
[2017-12-26] MEDS: Potassium Chloride Elixir 20 MEQ/15 ML UDC PO SCH (08:24)
[2017-12-26] MEDS: Aspirin Enteric Coated 81 MG Tablet PO SCH (08:24)
[2017-12-26] MEDS: OXYCODONE Oral CONC 10 MG/0.5 ML ORAL.SYG SL PRN ×2 (09:05→14:28)
--- NOTE | 2017-12-26 11:49 | Internal Med Progress Note ---
Hospitalist Progress Note - Encounter Date of Encounter: 12/26/17 Time of Encounter: 11:48 - Subjective Interval History: Patient seen and examined this morning. Epigastri Pain overnight radiating to back. Denies fever, chills, N/V. Ate 2 meals yesterday. Had soft BM. - Exam Vitals: Temp Pulse Resp BP Pulse Ox 98.2 F 66 20 143/67 96 12/26/17 11:07 12/26/17 11:07 12/26/17 11:07 12/26/17 11:07 12/26/17 11:07 Exam: General: In no distress HEENT: Head atraumatic, normocephalic, EOMI, PERRL, Moist Mucous Membranes, CVS: RRR, S1, s2 normal, No MRG. no pedal edema. RS: CTAB, No adventitious lung sounds Abdomen: Soft, Mild epigastric tenderness, BS normal. 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 Possibly sequela of pancreatitis. Malignancy is much less likely however needs upper endoscopy and EUS with fine needle aspiration to r/o malignancy after resolution acute pancreatitis - Started having pain again. With elevated lipase and abdominal pain radiating to back. - Keep NPO. Start IVF D5-0.45 NS at 125 cc/hr - Plan for duodenal feeding per GI. Hyperlipidemia - on Simvastatin. Patient states her hypertriglyceridemia is under better con trol - npo for now. Hypertension - on lisinopril - NPO for now - IV labetalol for sbp>180 DVT ppx - c/w lovenox - Time Spent with Patient Total time spent is greater than 50% in coordination of care (as documented) at patient's floor/unit and/or counseling patient: Internal Medicine: Result - Labs CBC & Chem 7: 12/25/17 04:18 12/25/17 04:18 - ABG Interpretation ABG results: PT/INR, D-dimer PT 12.2 Seconds (9.4-12.1) H 10/21/18 15:58 Consult Discharge Plan - Plan Referrals: Ha Sinha MD [Partnered Physician] - 12/29/17 8:15 am (Please follow up as schedule...) Cristiana Burr CNP [Primary Care Provider] - (Patient has to call an appointment per Office) _ (1) Pancreatitis Qualifiers: Chronicity: acute Pancreatitis type: alcohol induced Acute pancreatitis complication: no infection or necrosis Qualified Code(s): K85.20 - Alcohol induced acute pancreatitis without necrosis or infection
[2017-12-26] MEDS ORDERED: OXYCODONE Oral CONC 10 MG/0.5 ML ORAL.SYG SL PRN (12:48)
[2017-12-26] MEDS ORDERED: D5% in 0.45% NACL 1,000 ML IVC SCH ×2 (13:15→13:27)
[2017-12-26] MEDS ORDERED: *HR* Labetalol 20 MG/4 ML SYRINGE IVP PRN (13:31)
[2017-12-26] MEDS ORDERED: MVI, adult with vitamin K 10 ML in 0.9 % Sodium Chloride 1,000 ML IVC ONE (17:21)
[2017-12-27] MEDS: OXYCODONE Oral CONC 10 MG/0.5 ML ORAL.SYG SL PRN ×3 (05:35→16:34)
[2017-12-27] MEDS: *HR* Enoxaparin 40 MG/0.4 ML SYRINGE SQ SCH (05:36)
[2017-12-27] MEDS ORDERED: D5% in 0.45% NACL 1,000 ML IVC SCH ×2 (08:45→10:23)
[2017-12-27] MEDS ORDERED: MVI, adult with vitamin K 10 ML in 0.9 % Sodium Chloride 1,000 ML IVC ONE (08:55)
[2017-12-27] MEDS ORDERED: Levothyroxine Sodium 100 MCG VIAL IVP SCH (09:00)
[2017-12-27] MEDS: Aspirin Enteric Coated 81 MG Tablet PO SCH (09:02)
[2017-12-27] MEDS: Potassium Chloride Elixir 20 MEQ/15 ML UDC PO SCH (09:02)
--- NOTE | 2017-12-27 10:06 | Internal Med Progress Note ---
Hospitalist Progress Note - Encounter Date of Encounter: 12/27/17 Time of Encounter: 10:05 - Subjective Interval History: Patient seen and examined this morning. abdominal pain resolved. Denies fever, chills, N/V. Had BM yesterday. NPO. Feeling better. 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 Possibly sequela of pancreatitis. Malignancy is much less likely however needs upper endoscopy and EUS with fine needle aspiration to r/o malignancy after resolution acute pancreatitis - Started having pain again. With elevated lipase and abdominal pain radiating to back. - Keep NPO. Start IVF D5-0.45 NS at 125 cc/hr - Plan for duodenal feeding per GI. Hyperlipidemia - on Simvastatin. Patient states her hypertriglyceridemia is under better control - npo for now. Hypertension - on lisinopril - NPO for now - IV labetalol for sbp>180 DVT ppx - c/w lovenox - Time Spent with Patient Total time spent is greater than 50% in coordination of care (as documented) at patient's floor/unit and/or counseling patient: Internal Medicine: Result - Labs CBC & Chem 7: 12/25/17 04:18 12/25/17 04:18 - ABG Interpretation ABG results: PT/INR, D-dimer PT 12.2 Seconds (9.4-12.1) H 12/14/17 15:58 Consult Discharge Plan - Plan Referrals: Ha Sinha MD [Partnered Physician] - 12/29/17 8:15 am (Please follow up as schedule...) Cristiana Burr, [employer] [Primary Care Provider] - (Patient has to call an appointment per Office) ____ (1) Pancreatitis Qualifiers: Chronicity: acute Pancreatitis type: alcohol induced Acute pancreatitis complication: no infection or necrosis Qualified Code(s): K85.20 - Alcohol induced acute pancreatitis without necrosis or infection
[2017-12-27 11:41] VITALS: BP 156/68
--- NOTE | 2017-12-27 15:18 | Discharge Summary ---
Orders not resulted at time of discharge: Pending orders 12/14/17 11:11 Urinalysis Reflex Cult & Micro [URIN] Stat 12/17/17 03:31 Culture,Urine [RM] Stat Date of Encounter: 12/27/17 Time of Encounter: 15:15 - Discharge Diagnosis (1) Pancreatitis Priority: Primary Status: Acute Qualifiers: Chronicity: acute Pancreatitis type: alcohol induced Acute pancreatitis complication: no infection or necrosis Qualified Code(s): K85.20 - Alcohol induced acute pancreatitis without necrosis or infection (2) Pancreatic cyst Priority: Secondary Status: Acute (3) Hypertension Priority: Secondary Status: Acute Qualifiers: Hypertension type: essential hypertension Qualified Code(s): I10 - Essential (primary) hypertension (4) Hyperlipidemia Priority: Secondary Status: Chronic Qualifiers: Hyperlipidemia type: unspecified Qualified Code(s): E78.5 - Hyperlipidemia, unspecified Hospital course: Ms. Mckinney is a 72 year old female past medical history of hypertension, hyperlipidemia of pancreatitis who was recently discharged after a bout of pancreatitis thought to be due to alcohol came in with complain of abdominal pain. Initial CT abdomen showed small amount of ascites. Chest x-ray showed bibasilar opacification with small effusions. Patient was thought to have pancreatitis versus SBP and was started on antibiotics initially. Her lipase was also elevated in 300s. IR could not ascites because it was very minimal. Patient was unable to tolerate diet initially for almost a week. GI was consulted. Patient had abdominal ultrasound which showed a CBD of 7 mm. MRCP showed complex cystic structure in pancreatic head but appears to communicate with proximal and distal pancreatic duct which could represent pancreatitis with internal feeling the effects felt to be from possibility of ductal stones. Pseudocyst less likely. Patient was gradually progressing with her diet and tolerating well. However during earlier part of the admission around day 10-11 patient started having abdominal pain again. Patient's lipase was trending down which increased to 900s when she started having abdominal pain. Patient was kept nothing by mouth and started on IV aggressive hydration. Per discussion with gastroenterology patient would benefit transferred to [facility] as she would have [id number] cost if transferred to [facility]. Patient agreeable. Discussed case with Dr. Blankenship who accepted the patient. Patient would be transferred to [facility]. Patient's vitals stable and pain-free at the time of transfer. Currently nothing by mouth. Discharge discussed with: patient, family, nurse, foreign law consultant - Time Spent with Patient Total time spent providing and/or coordinating discharge services: Greater than 30 minutes (50) - Discharge Medications Home Medications: Aspirin [Lo-Dose Aspirin EC] 81 mg PO QAM 08/01/17 [History] Levothyroxine [Synthroid] 75 mcg PO QAM 08/01/17 [History] Lisinopril [Zestril] 10 mg PO QAM 08/01/17 [History] Potassium Chloride Elixir [Potassium Chloride] 10 meq PO DAILY 08/01/17 [History] Pravastatin Sodium 10 mg PO HS 08/01/17 [History] Allergies/Adverse Reactions: Allergy/AdvReac Type Severity Reaction Status Date / Time No Known Allergies Allergy Verified 12/14/17 13:14 Date of admission: 12/16/17 18:52 Primary care physician: Cristiana Burr CNP Consults: 12/14/17 15:32 Consult to Interventional Radiology [CONS] Routine Consulting Provider: Radiology Interventional Cols Reason for Consult: For paracentensis to r/o SBP Call Completed: No 12/14/17 15:52 Consult to Gastroenterology [CONS] Routine Consulting Provider: Brooke Del Castillo Reason for Consult: Acute on chronic pancreatitis, with persistent inflammation by imaging, readmission for same Call Completed: Yes 12/22/17 19:44 Consult to Gastroenterology [CONS] Routine Consulting Provider: Brooke Del Castillo Reason for Consult: Recurrent pancreatitis Call Completed: Yes 12/23/17 08:35 Consult to Nutrition [CONS] Routine Comment: Consulting Provider: NUTRITION Reason for Dietary Consult: Tube Feed Start & Manage Diet Education PO Supplementation 12/26/17 17:22 Consult to Gastroenterology [CONS] Routine Consulting Provider: Gastroenterjihan Del Castillo Reason for Consult: lipase Call Completed: Yes Discharging clinician: Nereyda Cuellar - Constitutional Vitals: Temp Pulse Resp BP Pulse Ox 97.8 F 65 18 156/68 97 12/27/17 11:37 12/27/17 11:37 12/27/17 11:37 12/27/17 11:37 12/27/17 11:37 General appearance: Present: A&O X 3 Exam: General: In no distress HEENT: Head atraumatic, normocephalic, EOMI, PERRL, Moist Mucous Membranes, CVS: RRR, S1, s2 normal, No MRG. no pedal edema. RS: CTAB, No adventitious lung sounds Abdomen: Soft, Mild epigastric tenderness, BS normal. Skin: warm and dry, absent rash, absent open wounds and nodules Neuro: Cranial nerves II through XII intact, alert oriented 3, No focal signs - Patient Status Disposition: Transfer Hospital Swing Bed Condition: Fair - Discharge Instructions Instructions: Pancreatitis (DC), Pneumonia (DC) Follow Up With: Ha Sinha MD [Partnered Physician] - 12/29/17 8:15 am (Please follow up as schedule...) Cristiana Burr CNP [Primary Care Provider] - (Patient has to call an appointment per Office) - Diet and Activity Diet: other (npo, being transferred to [place], Medications on hold as well)
== END 2017-12-27 16:38 | disposition other institution (70) | DRG 438 ==
LOC: 2ANU 10:19 → EMEROOARM 10:19 → SUATTDRO 16:17 → 2ANU 17:03 → SUATTDRO 12-16 18:52 → 2ANU 12-26 19:43
PROVIDERS: ADMIT Internal Medicine; ATTEND Internal Medicine

== ENCOUNTER 2018-01-08 11:01 | Inpatient (IN) ==
--- NOTE | 2018-01-08 11:17 | Emergency Department Note ---
Disposition Clinical Impression: Abdominal pain Qualifiers: Abdominal location: epigastric Qualified Code(s): R10.13 - Epigastric pain Disposition: Admitted As Inpatient Condition: Fair Time of Disposition: 19:10 Abdominal Pain HPI - General Chief Complaint: ED Abdominal Pain Stated Complaint: ABD Pain Time Seen by Provider: 01/08/18 11:03 Source: patient, family Mode of arrival: private vehicle Limitations: no limitations Nursing Notes Reviewed: Yes Vital Signs Reviewed: Yes - History of Present Illness HPI Narrative: The patient is a 72-year-old female presenting to [facility] ED for one week history of gradually progressive worsening abdominal pain. The patient states that she has a past medical history of pancreatitis due to alcohol use which was diagnosed this facility approximately 1 month ago with NG placement at [facility] approximately 2 weeks ago. Patient states that approximately one week ago her [place] feeds were changed to a new formulation and that she began ingesting crushed ice chips PO. Patient states that since this time she has had worsening of mid epigastric pain 8 out of 10 currently on the pain scale with radiation bilaterally into her back. Patient also admits to nausea. Patient denies headache, vision change, chest pain, shortness of breath, vomiting, blood in her urine or stool, or generalized paresthesias. Pt Subjective Complaint: abdominal pain Onset (ago): day(s) Location: epigastric Pain Severity: severe Pain Scale: 8 Radiation: bilateral flank Improves with: nothing Associated symptoms: Reports: nausea. Denies: fever, chills, hematochezia, hematuria - Related Data Home Medications Medication Instructions Recorded Confirmed RX: Aspirin [Lo-Dose Aspirin EC] 81 mg PO QAM 08/01/17 01/08/18 RX: Levothyroxine [Synthroid] 75 mcg PO QAM 08/01/17 01/08/18 RX: Lisinopril [Zestril] 10 mg PO QAM 08/01/17 01/08/18 RX: Pravastatin Sodium 10 mg PO HS 08/01/17 01/08/18 Naproxen Sodium [Aleve] 220 mg PO Q8H PRN 01/08/18 01/08/18 Allergies Allergy/AdvReac Type Severity Reaction Status Date / Time No Known Allergies Allergy Verified 01/08/18 15:01 Constitutional: Denies: fever, chills Eyes: Denies: vision change Cardiovascular: Denies: chest pain Respiratory: Denies: dyspnea Gastrointestinal: Reports: abdominal pain, nausea. 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 Absent: scleral icterus, conjunctival injection - Neck Neck exam: Present: trachea midline - Chest Chest inspection: Present: normal inspection, symmetric chest wall rise - Respiratory Respiratory exam: Present: normal lung sounds bilaterally. Absent: respiratory distress, wheezes, stridor, accessory muscle use, prolonged expiratory phase - Cardiovascular Cardiovascular exam: Present: regular rate, normal rhythm, normal heart sounds, +S1, +S2. Absent: rubs, gallop, clicks, JVD, +S3, +S4 - Abdominal Exam Abdominal exam: Present: soft, tenderness, normal bowel sounds. Absent: distention, guarding, rebound, rigidity Abdominal tenderness: Present: RUQ, epigastrium - Neurological Exam Neurological exam: Present: alert, oriented X3 - Psychiatric Psychiatric exam: Present: normal affect, normal mood - Skin Skin exam: Present: warm, dry, intact, normal color. Absent: cyanosis, diaphoresis Course Course Narrative: Patient history, review systems, physical exam is concerning for consultation is associated with known history of pancreatitis. CBC, BMP, LFTs, amylase, lipase, chest x-ray, ethanol, PT/INR, troponin, CT scan of the abdomen and pelvis IV contrast will be performed to further assess for underlying pathology. -50 g fentanyl will be administered for the management of patient's symptoms. - Reevaluation(s) Reevaluation #1: Patient's symptoms initially well-managed with 50 g of fentanyl. Patient laboratory results show elevated lipase, concerning for acute pancreatitis flare. CT of the abdomen and pelvis shows stable and decreasing pancreatitis with stable cystic lesion in the pancreatic head. Dr. Reynoso from gastroenterology consulted and recommends admission to the hospital for IV fluids and pain management. Patient will be admitted to hospital for pain management and further evaluation of this episode. Patient will be given a repeat dose of 50 g of fentanyl for symptom control. Time: 14:15 Time: 15:11 Vital Signs Temperature 97.5 F L 01/08/18 11:05 Pulse Rate 90 01/08/18 11:05 Respiratory Rate 16 01/08/18 11:05 Blood Pressure 166/76 01/08/18 11:05 O2 Sat by Pulse Oximetry 99 01/08/18 11:05 Temperature 98.5 F 01/08/18 19:07 Pulse Rate 78 01/08/18 19:07 Respiratory Rate 14 01/08/18 19:07 Blood Pressure 152/74 01/08/18 19:07 O2 Sat by Pulse Oximetry 98 01/08/18 19:07 Oxygen Delivery Oxygen Delivery Room Air Abdominal Pain - MDM Narrative Medical decision making narrative: Patient will be admitted to the hospital with Dr. Eliazar neri. - Lab Data Lab results reviewed: Yes I reviewed the patient's lab results. Result diagrams: 01/08/18 12:07 01/08/18 12:07 Lab Results 01/08/18 01/08/18 01/08/18 Range/Units 12:07 12:07 12:07 WBC 10.9 (4.3-11.1) K/mcL RBC 3.77 L (3.82-4.97) M/mcL Hgb 11.6 (11.5-15.4) g/dL Hct 35.0 L (35.3-44.9) % MCV 92.8 (83.0-100.0) fL MCH 30.8 (28.0-33.3) pg MCHC 33.1 (31.6-35.5) g/dL RDW 12.9 (11.5-14.5) % Plt Count 268 (140-400) K/mcL MPV 10.1 (9.4-12.4) fL Immature Gran % 0.5 (0-4) % Seg Neutrophils % 76.2 % Lymphocytes % 14.8 % Monocytes % 6.4 % Eosinophils % 1.4 % Basophils % 0.7 % Neutrophils # 8.3 (1.6-8.9) K/mcL Lymphocytes # 1.6 (0.6-4.6) K/mcL Monocytes # 0.7 (0.0-1.3) K/mcL Eosinophils # 0.2 (0.0-0.6) K/mcL Basophils # 0.1 (0.0-0.2) K/mcL Immature Plt Fraction 2.9 (1.1-6.1) % PT 10.8 (9.4-12.1) Seconds INR 1.0 Sodium 131 L (136-145) mEq/L Potassium 4.1 (3.5-5.1) mEq/L Chloride 99 (98-107) mEq/L Carbon Dioxide 24 (23-29) mEq/L BUN 18 (8-23) mg/dL Creatinine 0.50 L (0.60-1.20) mg/dL Est GFR ( Amer) > 60 (> 60) Est GFR (Non-Af Amer) > 60 (> 60) BUN/Creatinine Ratio 36 H (6-26) Glucose 144 H (70-105) mg/dL Calculated Osmolality 276 L (280-300) Calcium 9.7 (8.6-10.3) mg/dL Total Bilirubin 0.5 (0.3-1.0) mg/dL Direct Bilirubin 0.1 (0.0-0.2) mg/dL Indirect Bilirubin 0.4 (0.0-1.2) mg/dL AST 17 (13-39) Units/L ALT 23 (7-52) Units/L Alkaline Phosphatase 95 (34-104) Units/L Troponin I < 0.03 (< 0.04) ng/mL Serum Total Protein 7.1 (6.4-8.9) g/dL Albumin 4.2 (3.5-5.7) g/dL Globulin 2.9 (2.4-3.5) g/dL Albumin/Globulin Ratio 1.4 (1.1-2.2) Lipase 1727 H (11-82) Units/L Ethyl Alcohol < 10 (Less than 10) mg/dL - Radiology Data Radiology results reviewed: Yes I reviewed the patient's radiology results. Abdomen/Pelvis CT 01/08/18 11:48 IMPRESSION: 1. Persistent but much diminished findings of acute pancreatitis about the pancreatic head with stable cystic lesion at the pancreatic head presumably reflecting sequela from pancreatitis. 2. The left ovary lesion has previously been evaluated with MRI, stable dating to 12/24/2016, with recommendation for follow-up given on the previous MRI; correlate with report from that study. 3. Calcific atherosclerotic disease aorta. 4. Small, fat containing Bochdalek's hernia posterior on the right. D/ / Christos Landry / Christos Landry Interpreting Provider: Christos Landry - EKG Data EKG attestation: Yes I reviewed and interpreted this EKG. EKG results narrative: Patient EKG shows sinus rhythm with normal rate and axis. Heart rate is 79 bpm, GA interval is 118 ms, QRS duration is 87 ms, QT/QTc interval of 398/457 ms respectively. There are no significant ST segment elevations or depressions, pathologic Q waves, Attestation Statement - Attestation Attestation: I examined this patient and my medical decision-making was reviewed with the Resident Physician, Dr. Stafford. I agree with the documented findings, disposition and treatment plan as described except to the extent set forth below. Patient is a 72-year-old white female with a history of recurrent pancreatitis over the past year most recent episode was approximately one month ago where she was hospitalized here at our facility. Patient was found to have pancreatic cysts and was transferred to [facility] for further evaluation at their facility. Patient has underwent abdominal MRI which was negative for any other abnormality. Patient has a history of alcohol ingestion and likely secondary to her alcohol intake she is status post remote cholecystectomy. Patient returns today brought by family for worsening epigastric pain radiating through to her back about 8 out of 10 in severity associated with nausea for the last 2 days. Patient denies any fevers or chills, no bowel changes, no chest pain shortness of breath or cough. Patient when she was at [facility] had an [place] tube placed and has been on tube feeds since that time. I agree with patient's physical exam findings as documented. Vital signs are stable. Patient's EKG shows a normal sinus rhythm without acute ischemia. Laboratory evaluation shows of significant elevation in her lipase today compared to her recent values. CT confirms acute pancreatitis with stable cystic changes to the head of the pancreas and a persistent left ovarian lesion or cyst. Case was discussed with Dr. lynn who was consulate by GI to see the patient and patient was admitted to the hospitalist service for further evaluation and management. Patient is hemodynamically stable at this time.
[2018-01-08] MEDS ORDERED: Isovue-370 500 ML INFUS..BTL IV ONE (11:48)
[2018-01-08] MEDS ORDERED: *HR* FentaNYL (PF) 100 MCG/2 ML VIAL IVP ONE ×2 (11:50→14:13)
[2018-01-08 12:20] LABS: Basophils # 0.1 K/mcL (0.0-0.2); Basophils % 0.7 %; Eosinophils # 0.2 K/mcL (0.0-0.6); Eosinophils % 1.4 %; Hemoglobin 11.6 g/dL (11.5-15.4); Immature Granulocytes % 0.5 % (0-4); Immature Platelets 2.9 % (1.1-6.1); Lymphocytes # 1.6 K/mcL (0.6-4.6); Lymphocytes % 14.8 %; Mean Corpuscular HGB Conc 33.1 g/dL (31.6-35.5); Mean Corpuscular Hemoglobin 30.8 pg (28.0-33.3); Mean Corpuscular Volume 92.8 fL (83.0-100.0); Mean Platelet Volume 10.1 fL (9.4-12.4); Monocytes # 0.7 K/mcL (0.0-1.3); Monocytes % 6.4 %; Neutrophils # 8.3 K/mcL (1.6-8.9); Platelet Count 268 K/mcL (140-400); Red Blood Count 3.77 M/mcL (3.82-4.97); Red Cell Distribution Width 12.9 % (11.5-14.5); Segmented Neutrophils % 76.2 %
[2018-01-08 12:28] LABS: Prothrombin Time 10.8 Seconds (9.4-12.1)
[2018-01-08 12:37] LABS: Troponin I < 0.03 ng/mL (< 0.04)
[2018-01-08 13:09] LABS: Alanine Aminotransferase 23 Units/L (7-52); Albumin 4.2 g/dL (3.5-5.7); Albumin/Globulin Ratio 1.4 (1.1-2.2); Alkaline Phosphatase 95 Units/L (34-104); Aspartate Amino Transferase 17 Units/L (13-39); BUN/Creatinine Ratio 36 (6-26); Bilirubin,Direct 0.1 mg/dL (0.0-0.2); Bilirubin,Indirect 0.4 mg/dL (0.0-1.2); Bilirubin,Total 0.5 mg/dL (0.3-1.0); Blood Urea Nitrogen 18 mg/dL (8-23); Calcium 9.7 mg/dL (8.6-10.3); Carbon Dioxide 24 mEq/L (23-29); Chloride 99 mEq/L (98-107); Ethanol < 10 mg/dL (Less than 10); Globulin 2.9 g/dL (2.4-3.5); Glucose 144 mg/dL (70-105); Osmolality,Calculated 276 (280-300); Potassium 4.1 mEq/L (3.5-5.1); Sodium 131 mEq/L (136-145); Total Protein 7.1 g/dL (6.4-8.9); eGFR For Non-African Americans > 60 (> 60)
[2018-01-08 13:29] LABS: Lipase 1727 Units/L (11-82)
[2018-01-08] MEDS ORDERED: Naloxone 0.4 MG/ML INJ IVP PRN (16:45)
[2018-01-08] MEDS ORDERED: Ondansetron 4 MG/2 ML VIAL IVP PRN (16:55)
--- NOTE | 2018-01-08 16:58 | Internal Med History&Physical ---
Date of Encounter: 01/08/18 Time of Encounter: 16:56 Internal Medicine - H&P: HPI Chief complaint: abdominal pain Admitted From: Home Plans for Post Hospital Care: Home History of present illness: Ms. Mckinney is a 72 year old female with past medical history of hypertension, hyperlipidemia and recurrent pancreatitis who was recently transferred to [facility] about a month ago for further management of her pancreatitis with possible ERCP and or duodenal jejunal feeding. Patient did not had any further procedure including ERCP her biopsy. She had NJ tube placed and was started on feeding about 2 weeks ago. Her feeding has changed for past one week. Patient was getting 12 hour on all feeding at 90 mL per hour which was decreased or past 2 days because of abdominal pain. Patient started having abdo hoa pain since last 2 days. Patient was taking crushed ice chips by mouth for past few days and getting the tube feeding as prescribed by high speed printer operator. She has not lost significant amount of weight. Complains of mild fatigue. Denies any fevers chills or vomiting. Has some nausea. Patient came to ER because of her pain being similar to previous pain thinking that she has pancreatitis. Abdominal pain is severe intensity about 8 /10 in the midepigastric region radiating to the back. She denies any chest pain, shortness of breath, headache, blurry vision, changes in bowel or bladder habits. Denies any diarrhea or constipation. Past Med Surg Social Fam HX - Past Medical History Attestation: Yes The following information was validated with the patient. Source: patient, old records reviewed Medical history: hyperlipidemia, hypertension Additional medical history: goiter,recurrent pancreatitis Psychiatric history: no psych history - Past Surgical History Surgical History: appendectomy, cholecystectomy Additional surgical history: kidney repair right, tubal, - Social History Smoking Status: Current every day smoker Smokeless Tobacco Status: No Alcohol use: none, heavy Drug use: none Current living situation: Home - Independent - Family History Mother Hx Family Cancer: Yes (Breast cancer) Father Living Status: Hx Family Cardiac Disorders: Yes (Heart disease) Internal Medicine - H&P: Meds Aspirin [Lo-Dose Aspirin EC] 81 mg PO QAM 08/01/17 [History] Levothyroxine [Synthroid] 75 mcg PO QAM 08/01/17 [History] Lisinopril [Zestril] 10 mg PO QAM 08/01/17 [History] Pravastatin Sodium 10 mg PO HS 08/01/17 [History] Naproxen Sodium [Aleve] 220 mg PO Q8H PRN 01/08/18 [History] Allergy/AdvReac Type Severity Reaction Status Date / Time No Known Allergies Allergy Verified 01/08/18 15:01 All Systems PM: A 10-system review of systems was performed and is negative for pertinent findings except as documented above in the HPI. - Constitutional Vitals: Temp Pulse Resp BP Pulse Ox 97.5 F L 76 15 158/64 97 01/08/18 11:11 01/08/18 16:17 01/08/18 16:40 01/08/18 16:40 01/08/18 16:17 Exam: Constitutional: Vitals as noted. Conversant. No Apparent Distress. Eyes : Sclera white, conjunctiva clear, no lid lag, PEARLA. ENT : Grossly normal hearing. Oropharyngeal exam unremarkable. Moist mucus membranes. No JVD, no cervical lymphadenopathy. no thyromegaly or mass. Respiratory : Clear to auscultation bilaterally. No accessory muscle use, r ales, rhonchi or wheezes Cardiovascular : RRR, +S1, +S2. no murmur, gallop, rubs. No chest wall tenderness GI/Abdominal : Soft, Non-distended, normal bowel sounds, no peritoneal signs. no orgenomegaly or mass appreciated. no hernia. Epigastric tenderness noted. Musculoskeletal: no deformity noted. no edema or cyanosis. warm extremities, pulses palpable and symmetrical in UE/LE. no calf tenderness. Neurological: AO X3, CN II-XII grossly intact, grossly normal motor and sensory exam. Pych: Good insight and judgement. Intact memory. AOx3. Internal Med - H&P Results - Labs CBC & Chem 7: 01/08/18 12:07 01/08/18 12:07 Labs: Short CBC 01/08/18 Range/Units 12:07 WBC 10.9 (4.3-11.1) K/mcL Hgb 11.6 (11.5-15.4) g/dL Hct 35.0 L (35.3-44.9) % Plt Count 268 (140-400) K/mcL Neutrophils # 8.3 (1.6-8.9) K/mcL BMP 01/08/18 12:07 Sodium 131 L Potassium 4.1 Chloride 99 Carbon Dioxide 24 BUN 18 Creatinine 0.50 L Glucose 144 H Calcium 9.7 Cardiac Enzymes 01/08/18 Range/Units 12:07 Troponin I < 0.03 (< 0.04) ng/mL Liver Function 01/08/18 Range/Units 12:07 Total Bilirubin 0.5 (0.3-1.0) mg/dL Direct Bilirubin 0.1 (0.0-0.2) mg/dL AST 17 (13-39) Units/L ALT 23 (7-52) Units/L Alkaline Phosphatase 95 (34-104) Units/L Albumin 4.2 (3.5-5.7) g/dL - EKG Data -: EKG Interpreted by Myself EKG shows normal: sinus rhythm - Impressions ITS Impressions Abdomen/Pelvis CT 01/08/18 11:48 IMPRESSION: 1. Persistent but much diminished findings of acute pancreatitis about the pancreatic head with stable cystic lesion at the pancreatic head presumably reflecting sequela from pancreatitis. 2. The left ovary lesion has previously been evaluated with MRI, stable dating to 12/24/2016, with recommendation for follow-up given on the previous MRI; correlate with report from that study. 3. Calcific atherosclerotic disease aorta. 4. Small, fat containing Bochdalek's hernia posterior on the right. D/ / Christos Landry / Christos Landry Interpreting Provider: Christos Landry - Assessment and plan (1) Recurrent pancreatitis Current Visit: Yes Status: Acute Assessment and plan: Patient has evidence of pancreatitis with elevated lipase, clinical exam as well as on CT scan. - We will keep patient nothing by mouth - Start patient on IVF - Pain control with fentanyl and nausea control with zofran - GI consulted - f/u IgG4 (2) Hypertension Current Visit: No Status: Acute Assessment and plan: - Iv labetalol 5mg 12hr as patient NPO Qualifiers: Hypertension type: essential hypertension Qualified Code(s): I10 - Essential (primary) hypertension - Time Spent With Patient Total time spent is greater than 50% in coordination of care (as documented) at patient's floor/unit and/or counseling patient:
[2018-01-08] MEDS: *HR* FentaNYL (PF) 100 MCG/2 ML VIAL IVP PRN (19:41)
[2018-01-08] MEDS: *HR* Labetalol 20 MG/4 ML SYRINGE IVP SCH (20:19)
[2018-01-08] MEDS: D5% in 0.45% NACL 1,000 ML IVC SCH (20:41)
[2018-01-08] MEDS ORDERED: Ketorolac 30 MG/ML VIAL IVP ONE (20:47)
[2018-01-09] MEDS: D5% in 0.45% NACL 1,000 ML IVC SCH ×3 (04:38→23:43)
[2018-01-09] MEDS: *HR* Labetalol 20 MG/4 ML SYRINGE IVP SCH ×2 (05:23→17:15)
[2018-01-09 05:33] LABS: BUN/Creatinine Ratio 30 (6-26); Blood Urea Nitrogen 13 mg/dL (8-23); Calcium 9.2 mg/dL (8.6-10.3); Carbon Dioxide 22 mEq/L (23-29); Chloride 101 mEq/L (98-107); Chol/HDL Ratio 4.9 (0-4.9); Cholesterol 152 mg/dL (< 200); Glucose 145 mg/dL (70-105); HDL Cholesterol 31 mg/dL (40-59); LDL Cholesterol,Calculated 99 mg/dL (0-99); Osmolality,Calculated 275 (280-300); Potassium 3.5 mEq/L (3.5-5.1); Sodium 131 mEq/L (136-145); Triglycerides 109 mg/dL (< 150); eGFR For Non-African Americans > 60 (> 60)
--- NOTE | 2018-01-09 08:55 | Electrocardiograph Report ---
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
[2018-01-09] MEDS: Ketorolac 30 MG/ML VIAL IVP PRN ×2 (10:21→17:15)
--- NOTE | 2018-01-09 10:25 | Gastroenterology Consult Note ---
Date of Encounter: 01/09/18 Time of Encounter: 10:22 - Assessment and plan (1) Pancreatitis Current Visit: No Status: Acute Assessment and plan: Recurrent. Patient was recently treated for acute pancreatitis and has a nasal jejunal tube in place. Patient had recurrence of her abdominal pain with elevated lipase, elevated imaging shows pancreatitis but improved from last admission. Currently strict nothing by mouth, IV fluids, pain control. Attempt to obtain medical records from [place]. Further plan after reviewing medical records, patient may require long-term bowel rest/possible evaluation by a pancreatic specialist. Qualifiers: Chronicity: acute Pancreatitis type: unspecified pancreatitis type Acute pancreatitis complication: no infection or necrosis Qualified Code(s): K85.90 - Acute pancreatitis without necrosis or infection, unspecified - Time Spent With Patient Total time spent is greater than 50% in coordination of care (as documented) at patient's floor/unit and/or counseling patient: GI History of Present Illness - Data of Consult Patient: known to practice within the last 3 years Consult date: 01/09/18 Requesting Physician: Braydon Perea MD - Consult Narrative Reason for consult: Pancreatitis History of present illness: Ms. Mckinney is a 72 year old female with history of hypertension, previous alcohol use, recurrent pancreatitis who presents with abdominal pain. Patient was recently admitted here several weeks ago for pancreatitis that had recurred several times. She was eventually transferred to [facility] where she had a nasojejunal tube placed. She had been recovering well and had gone [facility] where she was receiving tube feeds, initially these were continual tube feeds over a 24-hour period however recently these were switched to tube feeds over 12 hour period with a 12 hour break. Patient states on Friday of this week she began developing recurrent abdominal pain and nausea. She states the pain felt a little different but she did have pain in her back which were similar to her previous episodes. She denies any vomiting or changes in her bowel habits. She states she has only been using ice chips and taking nothing else orally. She denies fever, chills, chest pain, shortness of breath. She reports her most recent alcohol use was over a month ago prior to her previous admission. Denies any alcohol use since discharge from [place]. Colonoscopy: 02/01/15 EGD: Unknown Past Med Surg Social Fam HX - Past Medical History Medical history: hyperlipidemia, hypertension Additional medical history: thyroid diease Psychiatric history: no psych history - Past Surgical History Surgical History: appendectomy, cholecystectomy Additional surgical history: kidney repair right, tubal, - Social History Smoking Status: Former smoker Packs per day: 0.5 Smokeless Tobacco Status: No Alcohol use: heavy Drug use: none - Family History Mother Hx Family Cancer: Yes (Breast cancer) Father Living Status: Hx Family Cardiac Disorders: Yes (Heart disease) All systems PM: reviewed and no additional remarkable complaints except as stated - Constitutional Vitals: Temp Pulse Resp BP Pulse Ox 98.2 F 66 16 136/66 96 01/09/18 10:19 01/09/18 10:19 01/09/18 10:19 01/09/18 10:19 01/09/18 10:19 General appearance: Present: A&O X 3, pleasant, no acute distress - Head Head exam: Present: atraumatic, normal inspection, normocephalic - Eye Eye exam: Present: EOMI, PERRL - ENT ENT exam: Present: mucous membranes moist - Respiratory Respiratory exam: Present: CTAB. Absent: rales, rhonchi, wheezes - Cardiovascular Cardiovascular exam: Present: RRR. Absent: gallop, rubs, systolic murmur - GI/Abdominal GI/Abdominal exam: Present: diminished bowel sounds, soft. Absent: distended, tenderness - Extremities Exam Extremities exam: Present: warm. Absent: pedal edema, tenderness Results - Labs CBC & Chem 7: 01/08/18 12:07 01/09/18 04:33 Labs: Last Result Calcium 9.2 mg/dL (8.6-10.3) 01/09/18 04:33 Troponin I < 0.03 ng/mL (< 0.04) 01/08/18 12:07 Triglycerides 109 mg/dL (< 150) 01/09/18 04:33 Entire Visit Hgb 11.6 g/dL (11.5-15.4) 01/08/18 12:07 Hct 35.0 % (35.3-44.9) L 01/08/18 12:07 PT 10.8 Seconds (9.4-12.1) 01/08/18 12:07 Total Bilirubin 0.5 mg/dL (0.3-1.0) 01/08/18 12:07 AST 17 Units/L (13-39) 01/08/18 12:07 ALT 23 Units/L (7-52) 01/08/18 12:07 Lipase 150 Units/L (11-82) H 01/09/18 04:33 - ABG ABG results: PT/INR, D-dimer PT 10.8 Seconds (9.4-12.1) 01/08/18 12:07 - Impressions Impressions Abdomen/Pelvis CT 01/08/18 11:48 IMPRESSION: 1. Persistent but much diminished findings of acute pancreatitis about the pancreatic head with stable cystic lesion at the pancreatic head presumably reflecting sequela from pancreatitis. 2. The left ovary lesion has previously been evaluated with MRI, stable dating to 12/24/2016, with recommendation for follow-up given on the previous MRI; correlate with report from that study. 3. Calcific atherosclerotic disease aorta. 4. Small, fat containing Bochdalek's hernia posterior on the right. D/ / Christos Landry / Christos Landry Interpreting Provider: Christos Landry Consult Discharge Plan - Plan Referrals: Cristiana Burr, HISTORICAL SOCIETY DIRECTOR [Primary Care Provider] -
[2018-01-09] MEDS: *HR* FentaNYL (PF) 100 MCG/2 ML VIAL IVP PRN ×2 (11:51→21:36)
--- NOTE | 2018-01-09 13:34 | Internal Med Progress Note ---
Hospitalist Progress Note - Encounter Date of Encounter: 01/09/18 Time of Encounter: 12:10 - Subjective Interval History: Patient seen and examined this morning. No acute overnight events. Feeling better. Abdominal pain controlled with pain medication. No fever, chills. - Exam Vitals: Temp Pulse Resp BP Pulse Ox 98.2 F 66 16 136/66 96 01/09/18 10:19 01/09/18 10:19 01/09/18 10:19 01/09/18 10:19 01/09/18 10:19 Exam: Constitutional: Vitals as noted. Conversant. No Apparent Distress. ENT : Grossly normal hearing. Oropharyngeal exam unremarkable. Moist mucus membranes. No JVD, no cervical lymphadenopathy. no thyromegaly or mass. Respiratory : Clear to auscultation bilaterally. No accessory muscle use, rales, rhonchi or wheezes Cardiovascular : RRR, +S1, +S2. no murmur, gallop, rubs. No chest wall tenderness GI/Abdominal : Soft, Non-distended, normal bowel sounds, no peritoneal signs. no orgenomegaly or mass appreciated. no hernia. Epigastric tenderness noted. NJ tube in place noted. Musculoskeletal: no deformity noted. no edema or cyanosis. warm extremities, pulses palpable and symmetrical in UE/LE. no calf tenderness. Neurological: AO X3, CN II-XII grossly intact, grossly normal motor and sensory exam. Pych: Good insight and judgement. Intact memory. AOx3. - Assessment and Plan (1) Pancreatitis Current Visit: No Status: Acute - Summary of Assessment and Plan Summary of Assessment and Plan: Recurrent pancreatitis - Patient has evidence of pancreatitis with elevated lipase, clinical exam as well as on CT scan. - Will restart feeding per GI - c/w IVF - Pain control with fentanyl and nausea control with zofran - GI following - f/u IgG4 Hypertension - Iv labetalol 5mg 12hr as patient NPO - Will resume home medications when able. - Time Spent with Patient Total time spent is greater than 50% in coordination of care (as documented) at patient's floor/unit and/or counseling patient: Internal Medicine: Result - Labs CBC & Chem 7: 01/08/18 12:07 01/09/18 04:33 Labs: BMP 01/09/18 04:33 Sodium 131 L Potassium 3.5 Chloride 101 Carbon Dioxide 22 L BUN 13 Creatinine 0.44 L Glucose 145 H Calcium 9.2 - ABG Interpretation ABG results: PT/INR, D-dimer PT 10.8 Seconds (9.4-12.1) 01/08/18 12:07 - Impressions Impressions Abdomen/Pelvis CT 01/08/18 11:48 IMPRESSION: 1. Persistent but much diminished findings of acute pancreatitis about the pancreatic head with stable cystic lesion at the pancreatic head presumably reflecting sequela from pancreatitis. 2. The left ovary lesion has previously been evaluated with MRI, stable dating to 12/24/2016, with recommendation for follow-up given on the previous MRI; correlate with report from that study. 3. Calcific atherosclerotic disease aorta. 4. Small, fat containing Bochdalek's hernia posterior on the right. D/ / Christos Landry / Christos Landry Interpreting Provider: Christos Landry Consult Discharge Plan - Plan Referrals: Cristiana Burr, LICENSED SALES PRODUCER [Primary Care Provider] - (1) Pancreatitis Qualifiers: Chronicity: acute Pancreatitis type: unspecified pancreatitis type Acute pancreatitis complication: no infection or necrosis Qualified Code(s): K85.90 - Acute pancreatitis without necrosis or infection, unspecified
[2018-01-10] MEDS: *HR* Labetalol 20 MG/4 ML SYRINGE IVP SCH ×2 (04:59→16:54)
[2018-01-10] MEDS: Ketorolac 30 MG/ML VIAL IVP PRN ×3 (05:00→16:54)
[2018-01-10] MEDS: *HR* FentaNYL (PF) 100 MCG/2 ML VIAL IVP PRN ×2 (09:12→20:24)
[2018-01-10] MEDS: D5% in 0.45% NACL 1,000 ML IVC SCH ×2 (09:17→19:04)
--- NOTE | 2018-01-10 12:57 | Internal Med Progress Note ---
Hospitalist Progress Note - Encounter Date of Encounter: 01/10/18 Time of Encounter: 11:56 - Subjective Interval History: Patient seen and examined this morning. No acute overnight events. Abdominal pain controlled with pain medication. No fever, chills, nausea vomiting or diarrhea. Now resumed on tube feedings. - Exam Vitals: Temp Pulse Resp BP Pulse Ox 98.2 F 64 14 136/73 98 01/10/18 10:31 01/10/18 10:31 01/10/18 10:31 01/10/18 10:31 01/10/18 10:31 Exam: Constitutional: Vitals as noted. Conversant. No Apparent Distress. Respiratory : Clear to auscultation bilaterally. No accessory muscle use, rales, rhonchi or wheezes Cardiovascular : RRR, +S1, +S2. no murmur, gallop, rubs. No chest wall tenderness GI/Abdominal : Soft, Non-distended, normal bowel sounds, no peritoneal signs. no orgenomegaly or mass appreciated. no hernia. No Epigastric tenderness noted. NJ tube in place noted. Musculoskeletal: no deformity noted. no edema or cyanosis. warm extremities, pulses palpable and symmetrical in UE/LE. no calf tenderness. Neurological: AO X3, CN II-XII grossly intact, grossly normal motor and sensory exam. Pych: Good insight and judgement. Intact memory. AOx3. - Assessment and Plan (1) Pancreatitis Current Visit: No Status: Acute - Summary of Assessment and Plan Summary of Assessment and Plan: Recurrent pancreatitis - Patient has evidence of pancreatitis with elevated lipase, clinical exam as well as on CT scan. - Jejunal feeding restarted per GI - Decrease IVF to 50 mL - Pain control with fentanyl and Toradol. nausea control with zofran - GI following - f/u IgG4 Hypertension - Iv labetalol 5mg 12hr as patient NPO - Will resume home medications when able. - Time Spent with Patient Total time spent is greater than 50% in coordination of care (as documented) at patient's floor/unit and/or counseling patient: Internal Medicine: Result - Labs CBC & Chem 7: 01/08/18 12:07 01/09/18 04:33 - ABG Interpretation ABG results: PT/INR, D-dimer PT 10.8 Seconds (9.4-12.1) 01/08/18 12:07 Consult Discharge Plan - Plan Referrals: Cristiana Burr, TIRE DEBEADER [Primary Care Provider] - (1) Pancreatitis Qualifiers: Chronicity: acute Pancreatitis type: unspecified pancreatitis type Acute pancreatitis complication: no infection or necrosis Qualified Code(s): K85.90 - Acute pancreatitis without necrosis or infection, unspecified
[2018-01-11] MEDS: Ketorolac 30 MG/ML VIAL IVP PRN ×3 (00:02→18:27)
[2018-01-11] MEDS: *HR* FentaNYL (PF) 100 MCG/2 ML VIAL IVP PRN ×2 (05:15→21:28)
--- NOTE | 2018-01-11 13:50 | Internal Med Progress Note ---
Hospitalist Progress Note - Encounter Date of Encounter: 01/11/18 Time of Encounter: 12:16 - Subjective Interval History: No acute overnight events. Abdominal pain better today. requiring less pain medications. On tube feedings. No fever, chills, nausea vomiting or diarrhea. - Exam Vitals: Temp Pulse Resp BP Pulse Ox 98.6 F 67 15 164/86 99 01/11/18 11:49 01/11/18 11:49 01/11/18 11:49 01/11/18 11:49 01/11/18 11:49 Exam: Constitutional: Vitals as noted. Conversant. No Apparent Distress. Respiratory : Clear to auscultation bilaterally. No accessory muscle use, rales, rhonchi or wheezes Cardiovascular : RRR, +S1, +S2. no murmur, gallop, rubs. No chest wall tenderness GI/Abdominal : Soft, Non-distended, normal bowel sounds, no peritoneal signs. no orgenomegaly or mass appreciated. no hernia. No Epigastric tenderness noted. NJ tube in place noted. Musculoskeletal: no deformity noted. no edema or cyanosis. warm extremities, pulses palpable and symmetrical in UE/LE. no calf tenderness. Neurological: AO X3, CN II-XII grossly intact, grossly normal motor and sensory exam. Pych: Good insight and judgement. Intact memory. AOx3. - Assessment and Plan (1) Pancreatitis Current Visit: No Status: Acute - Summary of Assessment and Plan Summary of Assessment and Plan: Recurrent pancreatitis - Jejunal feeding restarted per GI - Pain control with fentanyl and Toradol. nausea control with zofran - GI following. appreciate recommendation. - f/u IgG4 Hypertension - Iv labetalol 5mg 12hr as patient NPO - Time Spent with Patient Total time spent is greater than 50% in coordination of care (as documented) at patient's floor/unit and/or counseling patient: Internal Medicine: Result - Labs CBC & Chem 7: 01/08/18 12:07 01/09/18 04:33 - ABG Interpretation ABG results: PT/INR, D-dimer PT 10.8 Seconds (9.4-12.1) 01/08/18 12:07 Consult Discharge Plan - Plan Referrals: Cristiana Burr, SYRUP FILTERER [Primary Care Provider] - (1) Pancreatitis Qualifiers: Chronicity: acute Pancreatitis type: unspecified pancreatitis type Acute pancreatitis complication: no infection or necrosis Qualified Code(s): K85.90 - Acute pancreatitis without necrosis or infection, unspecified
[2018-01-11] MEDS: D5% in 0.45% NACL 1,000 ML IVC SCH (16:04)
[2018-01-12] MEDS: Ketorolac 30 MG/ML VIAL IVP PRN ×2 (02:47→18:07)
[2018-01-12] MEDS: *HR* FentaNYL (PF) 100 MCG/2 ML VIAL IVP PRN ×2 (03:32→09:57)
[2018-01-12 06:32] LABS: BUN/Creatinine Ratio 19 (6-26); Blood Urea Nitrogen 9 mg/dL (8-23); Carbon Dioxide 25 mEq/L (23-29); Chloride 106 mEq/L (98-107); Glucose 138 mg/dL (70-105); Lipase 1025 Units/L (11-82); Osmolality,Calculated 283 (280-300); Potassium 3.8 mEq/L (3.5-5.1); Sodium 136 mEq/L (136-145); eGFR For Non-African Americans > 60 (> 60)
--- NOTE | 2018-01-12 10:04 | Internal Med Progress Note ---
Hospitalist Progress Note - Encounter Date of Encounter: 01/12/18 Time of Encounter: 10:01 - Subjective Interval History: No acute overnight events. Abdominal pain worse overnight radiating to her back. Was on tube feedings. No fever, chills, nausea vomiting or diarrhea. - Exam Vitals: Temp Pulse Resp BP Pulse Ox 98.5 F 70 15 152/73 99 01/12/18 06:56 01/12/18 06:56 01/12/18 06:56 01/12/18 06:56 01/12/18 06:56 Exam: Constitutional: Vitals as noted. Conversant. No Apparent Distress. Respiratory : Clear to auscultation bilaterally. No accessory muscle use, rales, rhonchi or wheezes Cardiovascular : RRR, +S1, +S2. no murmur, gallop, rubs. No chest wall tenderness GI/Abdominal : Soft, Non-distended, normal bowel sounds, no peritoneal signs. no orgenomegaly or mass appreciated. no hernia. No Epigastric tenderness noted. NJ tube in place noted. Musculoskeletal: no deformity noted. no edema or cyanosis. warm extremities, pulses palpable and symmetrical in UE/LE. no calf tenderness. Neurological: AO X3, CN II-XII grossly intact, grossly normal motor and sensory exam. Pych: Good insight and judgement. Intact memory. AOx3. - Assessment and Plan (1) Pancreatitis Current Visit: No Status: Acute - Summary of Assessment and Plan Summary of Assessment and Plan: Recurrent pancreatitis - Jejunal feeding restarted per GI. Having pain radiating to back and lipase elevated again this morning. Will hold tube feeding. - Pain control with fentanyl and Toradol. nausea control with zofran - GI following. Awaiting GI recommendation. - f/u IgG4 Hypertension - Iv labetalol 5mg 12hr as patient NPO - Time Spent with Patient Total time spent is greater than 50% in coordination of care (as documented) at patient's floor/unit and/or counseling patient: Internal Medicine: Result - Labs CBC & Chem 7: 01/08/18 12:07 01/12/18 05:35 Labs: BMP 01/12/18 05:35 Sodium 136 Potassium 3.8 Chloride 106 Carbon Dioxide 25 BUN 9 Creatinine 0.48 L Glucose 138 H Calcium 9.0 - ABG Interpretation ABG results: PT/INR, D-dimer PT 10.8 Seconds (9.4-12.1) 01/08/18 12:07 Consult Discharge Plan - Plan Referrals: Cristiana Burr, BIOMASS TECHNICIAN [Primary Care Provider] - (1) Pancreatitis Qualifiers: Chronicity: acute Pancreatitis type: unspecified pancreatitis type Acute pancreatitis complication: no infection or necrosis Qualified Code(s): K85.90 - Acute pancreatitis without necrosis or infection, unspecified
[2018-01-12] MEDS: D5% in 0.45% NACL 1,000 ML IVC SCH (11:24)
[2018-01-12 15:33] LABS: Immunoglobulin G Subclass 1 301 mg/dL (240-1118); Immunoglobulin G Subclass 2 267 mg/dL (124-549); Immunoglobulin G Subclass 3 28 mg/dL (21-134); Immunoglobulin G Subclass 4 16 mg/dL (1-123)
--- NOTE | 2018-01-12 17:37 | Discharge Summary ---
Date of Encounter: 01/12/18 Time of Encounter: 17:36 - Discharge Diagnosis (1) Pancreatitis Priority: Primary Status: Acute Qualifiers: Chronicity: acute Pancreatitis type: unspecified pancreatitis type Acute pancreatitis complication: no infection or necrosis Qualified Code(s): K85.90 - Acute pancreatitis without necrosis or infection, unspecified (2) Recurrent pancreatitis Priority: Primary Status: Acute (3) Hypertension Priority: Secondary Status: Acute Qualifiers: Hypertension type: essential hypertension Qualified Code(s): I10 - Essfaina tial (primary) hypertension Hospital course: Ms. Mckinney is a 72 year old female past medical history of hypertension hyperlipidemia with recurrent pancreatitis which started initially with alcohol ingestion and has been having recurrent plantar days after without any inciting event. She has cholecystectomy done in past. She recently had NG every feeding started at [place]. She was getting NJ feeding and started having abdominal pain which made her to come to ER. Patient was kept nothing by mouth initially and then gradually started on NG feeding however her pain returned and her lipase increased after being back almost to baseline. Her IgG level have returned normal. After discussion with gastroenterology who has been following patient was decided to transfer patient to tertiary care center for possible EUS, ERCP or further to be seen by pancreatic specialist. Patient agreeable and would be arranged for transfer today. - Time Spent with Patient Total time spent providing and/or coordinating discharge services: Greater than 30 minutes (43) - Discharge Medications Home Medications: Aspirin [Lo-Dose Aspirin EC] 81 mg PO QAM 08/01/17 [History] Levothyroxine [Synthroid] 75 mcg PO QAM 08/01/17 [History] Lisinopril [Zestril] 10 mg PO QAM 08/01/17 [History] Pravastatin Sodium 10 mg PO HS 08/01/17 [History] Allergies/Adverse Reactions: Allergy/AdvReac Type Severity Reaction Status Date / Time No Known Allergies Allergy Verified 01/08/18 15:01 Date of admission: 01/08/18 16:45 Primary care physician: Cristiana Burr CNP Consults: 01/08/18 15:19 Consult to Gastroenterology [CONS] Stat Consulting Provider: Brooke Del Castillo Reason for Consult: Pancreatitis Time Notified: 15:19 Call Completed: Yes 01/09/18 15:08 Consult to Nutrition [CONS] Routine Comment: Consulting Provider: NUTRITION Reason for Dietary Consult: Tube Feed Start & Manage Discharging clinician: Nereyda Cuellar - Constitutional Vitals: Temp Pulse Resp BP Pulse Ox 98.2 F 63 15 146/67 98 01/12/18 13:52 01/12/18 13:52 01/12/18 13:52 01/12/18 13:52 01/12/18 13:52 Exam: Constitutional: Vitals as noted. Conversant. No Apparent Distress. Respiratory : Clear to auscultation bilaterally. No accessory muscle use, rale s, rhonchi or wheezes Cardiovascular : RRR, +S1, +S2. no murmur, gallop, rubs. No chest wall tenderness GI/Abdominal : Soft, Non-distended, normal bowel sounds, no peritoneal signs. no orgenomegaly or mass appreciated. no hernia. No Epigastric tenderness noted. NJ tube in place noted. Musculoskeletal: no deformity noted. no edema or cyanosis. warm extremities, pulses palpable and symmetrical in UE/LE. no calf tenderness. Neurological: AO X3, CN II-XII grossly intact, grossly normal motor and sensory exam. Pych: Good insight and judgement. Intact memory. AOx3. - Patient Status Disposition: Transfer Hospital Swing Bed Condition: Fair - Discharge Instructions Follow Up With: Cristiana Burr, BUYER [Primary Care Provider] -
[2018-01-12 18:52] VITALS: BP 144/66
== END 2018-01-12 21:09 | disposition critical access hospital (66) | DRG 440 ==
LOC: 3BNU 11:01 → EMEROOARM 11:01 → SUATTDRO 16:45 → 3BNU 17:30 → 3ANU 18:20
PROVIDERS: ADMIT Internal Medicine; ATTEND Internal Medicine